=== PATIENT | female | born 1950 | race Caucasian/White ===

== ENCOUNTER → 2017-09-09 13:20 | Outpatient (CLI) | payer MEDICARE, SELFPAY ==
--- NOTE | 2017-09-09 13:23 | BI_ITS ---
MAMMOGRAPHY - UNILATERAL SCREENING: LEFT BREAST REASON FOR EXAM: Female, 67 years old. Routine annual screening examination (unilateral). PERTINENT HISTORY: RT MASTECTOMY 1998 WITH RECONSTRUCTION SX 5 YRS OF TOMOXIFEN DONE 2004 TECHNIQUE: Digital unilateral breast anais (3D mammographic acquisition) in the CC and MLO projections. 2-D mediolateral oblique (MLO) and craniocaudad (CC) views of both breasts were obtained. CAD: Full Field Digital Mammography with Computer Added Detection was performed. COMPARISON: Aug 02 2016 12:18pm , Aug 02 2015 7:09am FINDINGS: Breast Composition: There are scattered areas of fibroglandular density. There is an asymmetric density in the retroareolar region of the left breast for which further evaluation by spot compression views and ultrasound would be recommended. There are no suspicious calcifications. No other significant abnormalities are identified. BI/UNILAT LT SCRN W/CAD IMPRESSION: Further imaging evaluation recommended, as described above. (E) ASSESSMENT CATEGORY: BIRADS Category 0: Incomplete. Need additional imaging evaluation. A letter regarding these results will be sent to the patient by the facility within 30 days. Approximately 10% of breast cancers are not detected by mammography. A normal mammogram should not delay biopsy of a clinically suspicious abnormality. [id number] Electronically Signed: Valarie Norwood MD at 13:09 EDT Tel , Service support ,
== END ==
PROVIDERS: Family Provider Internal Medicine; PCP Internal Medicine; Visit Provider Internal Medicine Medical Oncology
DX: Z12.31 Encounter for screening mammogram for malignant neoplasm of breast (principal); Z85.3 Personal history of malignant neoplasm of breast
CPT/HCPCS: 77061; 77067; G0279

== ENCOUNTER → 2017-09-18 14:47 | Outpatient (CLI) | payer MEDICARE, SELFPAY ==
--- NOTE | 2017-09-18 14:49 | BI_ITS ---
MAMMOGRAPHY - UNILATERAL DIAGNOSTIC: LEFT BREAST REASON FOR EXAM: Female, 67 years old. Asymmetrical retroareolar density. PERTINENT HISTORY: Personal history of breast cancer. Prior right mastectomy. TECHNIQUE: Compression spot views of the left breast in the mediolateral oblique and craniocaudad views were obtained. CAD: Full Field Digital Mammography with Computer Added Detection was performed. COMPARISON: Comparison is made with prior mammogram dated September 09, 2017. FINDINGS: Breast Composition: There are scattered areas of fibroglandular density. There are no dominant masses or suspicious calcifications. There is a 2 mm well-defined nodular density in the retroareolar region of the breasts. Correlation with ultrasound is recommended. No other significant abnormalities are identified. BI/DIAG MAMM W/CAD, UNILAT IMPRESSION: 2 mm well-defined nodule in the retroareolar region of the left breast as described. Correlation with ultrasound is recommended. ASSESSMENT CATEGORY: BIRADS Category 0: Incomplete. Need additional imaging evaluation. A letter regarding these results will be sent to the patient by the facility within 30 days. Approximately 10% of breast cancers are not detected by mammography. A normal mammogram should not delay biopsy of a clinically suspicious abnormality. Electronically Signed: Bartolo Buck MD at 8:10 EDT Tel [phone], Service support ,
--- NOTE | 2017-09-18 14:49 | US_ITS ---
STUDY: ULTRASOUND BREAST - LEFT REASON FOR EXAM: Female, 67 years old. Abnormal screening mammogram. Asymmetrical density in the retroareolar region of the left breast. TECHNIQUE: Axial and longitudinal images of the LEFT breast were performed with a high resolution ultrasound transducer. COMPARISON: Comparison is made with prior mammogram dated September 09, 2017 and September 18, 2017. FINDINGS: LEFT Breast: Sonographic evaluation was performed. There is a 2 mm x 2 mm x 1 mm cyst at 11:00 position breast at 3 cm from nipple. US/Breast Limited Unilateral IMPRESSION: Subcentimeters cyst at the lung o'clock position the breast at 3 cm from the nipple. ASSESSMENT CATEGORY: BIRADS Category 2: Benign. A letter regarding these results will be sent to the patient by the facility within 30 days. Electronically Signed: Bartolo Buck MD at 8:09 EDT Tel [phone], Service support ,
== END ==
PROVIDERS: Family Provider Internal Medicine; PCP Internal Medicine; Visit Provider Internal Medicine Medical Oncology
DX: R92.2 Inconclusive mammogram (principal); Z85.3 Personal history of malignant neoplasm of breast; Z90.11 Acquired absence of right breast and nipple
CPT/HCPCS: 76642; 77065

== ENCOUNTER 2018-01-06 13:00 | Outpatient (RCR) | payer MEDICARE, SELFPAY ==
--- NOTE | 2017-12-19 13:29 | HP.PTEVAL_ITS ---
Patient's Visit Information TERESE BUTLER is a 67 year old F referred to Physical Therapy by Steven Aldridge with a diagnosis of R shoulder OA/L shld impingement/c-spine DDD upper c-spine. Date of Evaluation: 12/19/17 Physical Therapist: Alexandrea Massey - Visit Plan Frequency: 2x /Week Duration: 2 Months Plan: 2X/ week for 4 weeks for B shoulder PROM, AAROM, postural exercises, scapular strengthening, c-spine AROM with HEP and modalities as needed. - Subjective Subjective: Pt reports B shoulder pain with the R being worse. Pt reports that her R shoulder is a nerve impingement feel in multiple areas and sometimes it feels tight. It hurts to lay on the R shoulder and is achy and making it difficult to reach for things (FW and up). Pt has no N&T on the R. They do x- rays on the R shoulder and showed arthritis and the L said nerve impingement. Pt rports that she has some weakness in the R shoulder unless it is because of pain. L shoulder is the same thing but more mild. She has had in the past when the shoulder pain would go back and forth between the two shoulders. She can lay on B shoulders some but now can only sleep on them 1/2 turn. No N&T in the L. Pt has some neck stiffness. She gets no exercise because she just doesnt do them. Pt has had breast CA reconstuction on the R and the latissa is part of the reconstruction on the R. gave her meds and could not take them cause of nausea and increase in BP. She has been seeing MT X 1/ month and she works on mostly Upper neck and shoulders. - Pain R shoulder pain Pain Intensity (Out of 10): 2 L shoulder pain Pain Intensity (Out of 10): 1 - Objective AROM: R shoulder flex 100 degrees, abd 90 degrees, T12 IR, ER 45 degrees. L shoulder flex 136 degrees, abd 113 degrees, T 8 IR, ER 49 degrees. MMT: R shld flex 4-/5 and L 4/5, R shld abd 4-/5 and L 5/5, ER B 4-/5 and IR B 4-/5. c -spine AROM: flex 75%, 50% ext, SB B 25%, Rot B 75%. 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 Posture: rounded shoulders.... - Goals Goal 1:: I HEP Goal Time Frame: 4-6 Weeks Goal 2:: Increase R shoulder to 120 degrees elevation to increase function with no pain Goal Time Frame: 4-6 Weeks Goal 3:: Decrease B shoulder pain to 1/10 with ADL's. Goal Time Frame: 4-6 Weeks Goal 4:: Increase R shoulder MMT to 4/5 all planes Goal Time Frame: 4-6 Weeks Goal 5:: Increase c-spine AROM by 25% each plane (c-spine AROM: flex 75%, 50% ext, SB B 25%, Rot B 75%) Goal Time Frame: 4-6 Weeks - Rehabilitation Potential Rehabilitation Potential: Good - Anticipated Interventions Patient/Client Instruction: Educate patient on: Condition, Plan of Care For the Purpose of:: To decrease pain, To decrease swelling/inflammation, To increase ROM, To improve nutrient delivery to tissue, To increase oxygenation perfusion, To improve muscle performance and motor function, To improve ability to perform ADL's Therapeutic Exercise to Include: Strength training, Postural training, Flexibilty training, Passive ROM, Active ROM, Scapular Strength/Stabilization For the Purpose of:: To decrease pain, To decrease swelling/inflammation, To increase ROM, To improve nutrient delivery to tissue, To improve muscle performance and motor function, To improve ability to perform ADL's, To improve performance and independence with ADL's, To improve health of tissue, To decrease soft tissue restriction, To increase flexibility/ROM IF ES: Yes Thermo therapy (hot pack): Yes Ultrasound (thermal/non thermal): Yes For the Purpose of:: To decrease pain, To decrease swelling/inflammation, To increase ROM, To improve nutrient delivery to tissue, To improve muscle performance and motor function Thank you for the opportunity to evaluate your patient. For Medicare and Medicare HMO plans, please review the plan of care and approve it. It will need to be FAXED BACK to us at [phone] for Medicare purposes. Please let me know if there are questions or concerns regarding this plan of care. Physician Signature: Date:
--- NOTE | 2018-03-06 12:25 | HP.PTDCNRP_ITS ---
HP - Discharge Summary (1) - Patient Information TERESE BUTLER was seen in my office for initial evaluation on 12/19/17. The following Plan of Care was established for this patient: Initial Frequency: 2x /Week Initial Duration: 2 Months - Anticipated Interventions Patient/Client Instruction: Educate patient on: Condition, Plan of Care For the Purpose of:: To decrease pain, To decrease swelling/inflammation, To inc rease ROM, To improve nutrient delivery to tissue, To increase oxygenation perfusion, To improve muscle performance and motor function, To improve ability to perform ADL's Therapeutic Exercise to Include: Strength training, Postural training, Flexibilty training, Passive ROM, Active ROM, Scapular Strength/Stabilization For the Purpose of:: To decrease pain, To decrease swelling/inflammation, To increase ROM, To improve nutrient delivery to tissue, To improve muscle performance and motor function, To improve ability to perform ADL's, To improve performance and independence with ADL's, To improve health of tissue, To decrease soft tissue restriction, To increase flexibility/ROM IF ES: Yes Thermo therapy (hot pack): Yes Ultrasound (thermal/non thermal): Yes For the Purpose of:: To decrease pain, To decrease swelling/inflammation, To increase ROM, To improve nutrient delivery to tissue, To improve muscle performance and motor function This patient was last seen in our office 01/06/18. Pertinent comments regarding their Physical therapy will appear below: [facility] PT as pt now has another order for her shoulder. At this point I will be discontinuing this patient from physical therapy. I would be happy to see this patient again in the future if found appropriate by the physician. Thank you! Alexandrea Massey
== END 2018-01-06 19:00 | disposition home or self-care (01) ==
LOC: PT 13:00
PROVIDERS: Family Provider Internal Medicine; PCP Internal Medicine; Visit Provider Physician Assistant
DX: M19.011 Primary osteoarthritis, right shoulder (principal); M75.42 Impingement syndrome of left shoulder; M50.30 Other cervical disc degeneration, unspecified cervical region
CPT/HCPCS: 97110; 97162

== ENCOUNTER → 2018-01-26 10:50 | Outpatient (CLI) | payer MEDICARE, SELFPAY ==
[2018-01-26 11:36] LABS: Erythrocyte Sedimentation Rate 4 mm/hr (0-30)
[2018-01-26 11:39] LABS: Absolute Lymphocyte Count 2.09 X10^3/ul (0.83-4.51); Absolute Neutrophil Count 3.8 X10^3/uL (2.0-7.7); Basophil# 0.03 X10^3/uL; Basophil% 0.5 % (0-1); Hematocrit 39.5 % (37-47); Hemoglobin 13.6 g/dl (12.0-15.0); Lymphocyte # 2.09 X10^3/ul (4.0); Lymphocyte % 31.8 % (19-41); Mean Corp Hgb Conc 34.4 g/gl (32-36); Mean Corpuscular Hgb 30.9 pg (27.0-32.0); Mean Corpuscular Volume 89.8 fL (81-99); Mean Platelet Vol. 11.8 fl (6.2-12.0); Monocyte# 0.46 X10^3/uL; Neutrophil # 3.78 X10^3/uL (2.7-7.7); Neutrophil % 57.4 % (47-70); POSITIVE COUNT NO; POSITIVE DIFFERENTIAL NO; POSITIVE MORPHOLOGY NO; Platelet Count 185 K/mm3 (150-450); RBC Distribution Width CV 12.7 % (11.6-14.6); RBC Distribution Width SD 41.2 fl (35.1-43.9); White Blood Count 6.6 K/mm3 (4.4-11.0)
[2018-01-26 11:58] LABS: Anion Gap 9 (5-15); BUN 15 mg/dL (7-18); BUN/Creat Ratio 20.6 RATIO (10-20); CRP 4.81 mg/L (0.0-3.0); Calcium,Total 8.7 mg/dL (8.5-10.1); Chloride 107 mmol/L (98-107); Creatinine, Serum 0.73 mg/dL (0.55-1.02); EST Glomerular Filtration Rate 84 mL/min (>60); Est Glom Filt Rate - Afr Amer 102 mL/min (>60); Glucose 97 mg/dL (74-106); Potassium 4.1 mmol/L (3.5-5.1); Rheumatoid Factor < 10.0 IU/mL (<15); Sodium Level 143 mmol/L (136-145); Uric Acid 4.5 mg/dL (2.6-6.0)
[2018-01-27 15:19] LABS: ANTINUCLEAR ANTIBODIES DIRECT Negative (Negative)
== END ==
PROVIDERS: Family Provider Internal Medicine; PCP Internal Medicine; Visit Provider Orthopaedic Surgery
DX: Z01.818 Encounter for other preprocedural examination (principal); M19.011 Primary osteoarthritis, right shoulder
CPT/HCPCS: 36415; 80048; 84550; 85025; 85652; 86038; 86140; 86431

== ENCOUNTER 2018-05-07 15:30 | Outpatient (RCR) | payer MEDICARE, OTHER, SELFPAY ==
--- NOTE | 2018-02-17 15:10 | HP.PTEVAL_ITS ---
Patient's Visit Information TERESE BUTLER is a 67 year old F referred to Physical Therapy by Michael Sanchez with a diagnosis of R rot cuff tear. Date of Evaluation: 02/17/18 Physical Therapist: Del Peck, PT, - Visit Plan Frequency: 2-3x /Week Duration: 6 Weeks Plan: R shoulder strengthening (rot cuff), scap stab ex's, UBE, and HEP - Subjective Subjective: Pt reports she injured her R shoulder about 5 mos ago. Pt reports her R shoulder pain had an insidious onset in nature. Pt reports she does have neck pain. Pt reports the worst her pain becoame after she changed her mattress. Pt reports she also has had her pain start in her R shoulder, then move to her L. Now the pain is abck to the right side. Pt reports she did have an MRI which revealed a tear in her R shoulder rot cuff. Pt reports she had R breast cancer in 1998, and had 19 lymph nodes removed. Pt reports she is choosing to take care of her pain conservatively at this time as she is taking care of her son at this time. R shoulder pain 1/10 at rest , 8/10 at worst (no reson why). Pt notes reaching out and overhead is the toughest motions to perform. Sleep diff secondary to pain - Pain R shoulder Pain Intensity (Out of 10): 1 Pain Intensity Range: 8 - Objective Neuro: B UE sensation is WNL to light touch. B patellar tendon reflex= 2/3. Palpation: Mild pain along distribution of supraspinatus. No obvious deformity. Sig muscle guarding in R Upper trap. ROM: L shoulder flex= 145, abd= 155, ER= 55, IR WNL; R shoulder flex= 120, Abd= 80, ER= 55, IR WNL. MMT: L shoulder is 5/5 throughout. R shoulder is 3/5 and painful with all ranges - Goals Goal 1:: Decrease R shoulder pain x 50% to aid with sleep Goal Time Frame: 4-6 Weeks Goal 2:: Increase R shoulder strength x 1 grade to aid with IADL's Goal 3:: Increase R shoulder ROM to equal L shoulder ROM to aid with ADL's Goal Time Frame: 4-6 Weeks Goal 4:: I with HEP Goal Time Frame: 4-6 Weeks - Rehabilitation Potential Physical Therapy Diagnosis: R shoulder pain, weakness, and limited ROM secondary to R rot cuff Rehabilitation Potential: Good - Anticipated Interventions Patient/Client Instruction: Educate patient on: Condition, Plan of Care For the Purpose of:: To improve self management Therapeutic Exercise to Include: Strength training, Endurance training, Body mechanics, Postural training, Active ROM, Scapular Strength/Stabilization For the Purpose of:: To decrease pain, To increase ROM, To improve muscle performance and motor function Cryotherapy (ice pack, ice massage): Yes Thermo therapy (hot pack): Yes Ultrasound (thermal/non thermal): Yes For the Purpose of:: To decrease pain Thank you for the opportunity to evaluate your patient. For Medicare and Medicare HMO plans, please review the plan of care and approve it. It will need to be FAXED BACK to us at [phone] for Medicare purposes. Please let me know if there are questions or concerns regarding this plan of care. Physician Signature: Date:
--- NOTE | 2018-07-16 18:57 | HP.PT.NRP ---
HP - Discharge Summary (1) - Patient Information TERESE BUTLER was seen in my office for initial evaluation on 02/17/18. The following Plan of Care was established for this patient: Initial Frequency: 2-3x /Week Initial Duration: 6 Weeks - Anticipated Interventions Patient/Client Instruction: Educate patient on: Condition, Plan of Care For the Purpose of:: To improve self management Therapeutic Exercise to Include: Strength training, Endurance training, Body mechanics, Postural training, Active ROM, Scapular Strength/Stabilization For the Purpose of:: To decrease pain, To increase ROM, To improve muscle performance and motor function Cryotherapy (ice pack, ice massage): Yes Thermo therapy (hot pack): Yes Ultrasound (thermal/non thermal): Yes For the Purpose of:: To decrease pain This patient was last seen in our office . Pertinent comments regarding their Physical therapy will appear below: Pt was treated for 5 PT visits for her R shoulder pain through the date of 05/07/18. Pt has not returned since that date, and is therefore discontinued at this time. At this point I will be discontinuing this patient from physical therapy. I would be happy to see this patient again in the future if found appropriate by the physician. Thank you! Del Peck, PT, ATC
== END 2018-05-07 19:00 | disposition home or self-care (01) ==
LOC: PT 15:30
PROVIDERS: Family Provider Internal Medicine; PCP Internal Medicine; Referring Provider Orthopaedic Surgery; Visit Provider Orthopaedic Surgery
DX: S43.421D Sprain of right rotator cuff capsule, subsequent encounter (principal)
CPT/HCPCS: 97110; 97161; 97530

== ENCOUNTER → 2018-06-16 13:54 | Outpatient (CLI) | payer OTHER, SELFPAY ==
[2018-06-03 12:02] VITALS: BMI 34.3
[2018-06-10 10:25] VITALS: BMI 34.3
--- NOTE | 2018-06-16 13:58 | CT_ITS ---
STUDY: CT ABDOMEN AND PELVIS WITH CONTRAST REASON FOR EXAM: Female, 68 years old. Abdominal pain and tenderness. RADIATION DOSAGE (If Supplied By Facility): CTDIvol = ( 11.75 ) mGy, DLP = ( 896.57 ) mGycm TECHNIQUE: Transaxial images were obtained from the dome of the diaphragm to the symphysis pubis without oral contrast. 100 ml of Isovue 300 contrast was administered. Sagittal and coronal images were reconstructed. Individualized dose optimization techniques were used for this CT. COMPARISON: None. FINDINGS: There are surgical clips within the visualized right breast. The visualized lung bases are unremarkable. The visualized portions of the heart are within normal limits. Normal liver. There is non-visualization of the gallbladder, which may be secondary to either contraction or a prior cholecystectomy. Normal spleen. Normal pancreas. Normal bilateral adrenal glands. Normal right kidney. Normal left kidney. Normal visualized stomach. Normal small intestine. Normal colon. The appendix is visualized and appears normal. There is diffuse atherosclerotic calcification of the abdominal aorta, without a demonstrated aneurysm. Normal inferior vena cava. Normal retroperitoneum. Normal urinary bladder. Normal abdominal wall. There are diffuse degenerative changes of the visualized lumbar spine. CT/Abdomen/Pelvis WITH Contrast IMPRESSION: No acute intra-abdominal process. Atherosclerosis. Degenerative changes. Electronically Signed: Fabiana Moreno MD at 16:28 EST Tel , Service support ,
[2018-06-16 14:37] LABS: CREATININE FINGERSTICK 1.2 mg/dL (0.55-1.02)
== END ==
PROVIDERS: Family Provider Internal Medicine; PCP Internal Medicine; Referring Provider Internal Medicine; Visit Provider Internal Medicine
DX: R10.84 Generalized abdominal pain (principal)
CPT/HCPCS: 74177; Q9967

== ENCOUNTER → 2018-06-19 09:57 | Outpatient (CLI) | payer OTHER, SELFPAY ==
[2018-06-19 09:24] VITALS: BMI 34.3
[2018-06-19 10:03] LABS: Bacteria 0 SEEN /hpf (None Seen); Mucous, Urine 0 SEEN /hpf (<or=2+); Red Blood Cells-Urine 0 SEEN /hpf (0-5); Squamous Epithelial Cells - UA 0 SEEN /hpf (5-10)
[2018-06-19 11:39] LABS: Color, Urine Yellow (Yellow); Glucose, Dipstick Normal (Normal); Ketone-Dipstick Negative (Negative); Leukocyte Esterase-Dipstick Negative /ul (Negative); Nitrite-Dipstick Negative (Negative); Occult Blood-Urine Negative /ul (Negative); Protein-Dipstick Negative (Negative); Specific Gravity, Urine 1.015 (1.002-1.030); Urine Bilirubin Dipstick Negative (Negative); Urine Clarity Sl. Cloudy (Clear); Urine Urobilinogen Normal (Normal); Urine pH 6.5 (5.0 - 8.0)
[2018-06-19 11:55] LABS: White Blood Cells 0-5 SEEN /hpf (0-5)
== END ==
PROVIDERS: Family Provider Internal Medicine; PCP Internal Medicine; Referring Provider Surgery; Visit Provider Surgery
DX: R35.0 Frequency of micturition (principal)
CPT/HCPCS: 81001

== ENCOUNTER → 2018-09-04 15:49 | Outpatient (CLI) | payer OTHER, SELFPAY ==
[2018-06-19 09:24] VITALS: BMI 34.3
== END ==
PROVIDERS: Family Provider Internal Medicine; PCP Internal Medicine; Referring Provider Otolaryngology Otolaryngology/Facial Plastic Surgery; Visit Provider Otolaryngology Otolaryngology/Facial Plastic Surgery
DX: J32.9 Chronic sinusitis, unspecified (principal); R09.82 Postnasal drip
CPT/HCPCS: 87070

== ENCOUNTER 2018-09-06 00:24 | Emergency (ER) | payer OTHER, SELFPAY ==
[2018-06-19 09:24] VITALS: BMI 34.3
[2018-09-06 00:25] VITALS: BP 180/77; PULSE 91; RESP 16; TEMP 36.7; O2SAT 98; BMI 34.7
--- NOTE | 2018-09-06 00:39 | RAD_ITS ---
STUDY: X-RAY LEFT FOOT, FIFTH TOE REASON FOR EXAM: Female, 68 years old. Trauma TECHNIQUE: 4 view(s) of the toe were obtained. COMPARISON: None. FINDINGS: Normal visualized metatarsus. Normal metatarsophalangeal (M.T.P) joint. Normal interphalangeal joints. There is a fracture of the fifth proximal phalanx. There is soft tissue swelling of the fifth digit. RAD/Toe(s) Min 2 Views IMPRESSION: Fracture of the fifth proximal phalanx. Electronically Signed: Alejandro Dunn MD at 1:03 EDT , Service support ,
--- NOTE | 2018-09-06 00:40 | ED.VIS.GEN ---
History of Present Illness Chief Complaint: Lower Extremity Injury Informant: Patient Narrative: She stated she injured her left toe just this evening. She kicked the bed frame. She has broke her fifth metatarsal remotely. She is having pain in the fifth toe only. Worse with movement. No home treatment. Current severity is mild to moderate. Worse with walking. Relieved with rest. - Past Medical History (1) Segmental and somatic dysfunction of cervical region Status: Acute (2) Segmental and somatic dysfunction of thoracic region Status: Acute (3) History of right breast cancer Status: Chronic (4) Scoliosis Status: Chronic (5) Shoulder tendinitis Status: Chronic Past Medical History - Allergies and Home Meds Allergies/Adverse Reactions: Allergies adhesive Allergy (Mild, Verified 09/06/18 00:25) Rash celecoxib [From Celebrex] Adverse Reaction (Mild, Verified 09/06/18 00:25) history of ulcer cyclobenzaprine [From Flexeril] Adverse Reaction (Mild, Verified 09/06/18 00:25) mental status change duloxetine [From Cymbalta] Adverse Reaction (Mild, Verified 09/06/18 00:25) mental status change escitalopram [From Lexapro] Adverse Reaction (Mild, Verified 09/06/18 00:25) mental status change lorazepam [From Ativan] Adverse Reaction (Mild, Verified 09/06/18 00:25) mental status change morphine Adverse Reaction (Mild, Verified 09/06/18 00:25) mental status change tramadol Adverse Reaction (Mild, Verified 09/06/18 00:25) mental status change pseudoephedrine HCl [From Sudafed] Adverse Reaction (Verified 09/06/18 00:25) Other Primary Care Physician: Theresa Rodriguez DO [Primary Care Provider] - Prior records reviewed: Yes Past Medical History: - - Reviewed Surgical History: noncontributory Lives: Spouse/ Significant Other Smoking Status: Never smoker Alcohol: None Drugs: None Review of Systems General: Denies: Chills, Fever, Sweats Eyes: Denies: Visual changes - bilaterally, Diplopia ENT: Denies: Rhinorrhea, Sore throat Cardiovascular: Denies: Chest pain, Palpitations Respiratory: Denies: Dyspnea, Cough, Dyspnea on exertion Gastrointestinal: Denies: Abdominal pain, Nausea, Vomiting, Diarrhea, Melena, Hematochezia Genitourinary: Denies: Dysuria, Hematuria, Frequency Musculoskeletal: Reports: Extremity Pain - Pain in the left little toe. Denies: Back pain Skin: Denies: Rash, Wounds Neurological: Denies: Headache, Weakness, Numbness Physical Exam Vital Signs/Narrative: Vital Signs Temp Pulse Resp BP Pulse Ox 09/06/18 00:25 98.1 F 91 16 180/77 H 98 General: Well nourished, Well developed, No Acute Distress Head: Normocephalic, Atraumatic Eyes: Perrl, EOMI ENT: Moist mucous membranes, No rhinorrhea Neck: Supple, Nontender Cardiovascular: Regular rate, Regular rhythm, No murmurs Respiratory: No distress, CTA bilaterally, Chest nontender Abdomen: Soft, Nontender, Nondistended, Normal bowel sounds Back: Nontender, Normal Inspection Extremities: No edema, Tenderness - Tenderness left little toe with mild redness. No contusion. No proximal tenderness. Decreased range of motion of the toes secondary to pain.. Negative for: Nontender Skin: Normal color, No rash Neurological: Alert, Oriented x3, Cranial nerves II-XII grossly intact, Normal Strength, Normal Sensation Psychological: Normal affect, Normal Mood Diagnostic/Tx/Re-eval - Medical Decision Making Patient given Tylenol. X-ray of the toe obtained. Duration of the proximal phalanx fracture of the fifth little toe. Placed in a postop shoe and we deborah tape this toe. She will follow-up with podiatry. She will use Tylenol and ice it. ED Disposition - Plan for ED Patient: Disposition: Home or Assisted Living Diagnosis: Toe fracture, left Instructions: ED Fx Toe Closed Referrals: Michael Gomez DPM [STAFF PHYSICIAN] -
[2018-09-06] MEDS: Acetaminophen 325 MG Tablet 650 MG PO (00:42)
== END 2018-09-06 01:31 | disposition home or self-care (01) ==
PROVIDERS: Emergency Provider Emergency Medicine; Family Provider Internal Medicine; PCP Internal Medicine
DX: S92.912A Unspecified fracture of left toe(s), initial encounter for closed fracture (principal); W22.09XA Striking against other stationary object, initial encounter; Y93.9 Activity, unspecified; Y92.89 Other specified places as the place of occurrence of the external cause; Y99.9 Unspecified external cause status; M41.9 Scoliosis, unspecified; M99.01 Segmental and somatic dysfunction of cervical region; M99.02 Segmental and somatic dysfunction of thoracic region; Z85.3 Personal history of malignant neoplasm of breast
CPT/HCPCS: 73660; 99283

== ENCOUNTER → 2018-09-25 12:56 | Outpatient (CLI) | payer OTHER, SELFPAY ==
[2018-04-16 09:48] VITALS: BMI 34.3
[2018-09-06 00:25] VITALS: BMI 34.7
--- NOTE | 2018-09-25 12:59 | BI_ITS ---
MAMMOGRAPHY - UNILATERAL SCREENING: LEFT BREAST REASON FOR EXAM: Female, 68 years old. Routine annual screening examination (unilateral). PERTINENT HISTORY: Personal history of breast cancer. Prior right mastectomy. Grandmother with breast cancer. TECHNIQUE: Digital unilateral breast sammy (3D mammographic acquisition) in the CC and MLO projections. 2-D mediolateral oblique (MLO) and craniocaudad (CC) views of both breasts were obtained. CAD: Full Field Digital Mammography with Computer Added Detection was performed. COMPARISON: Comparison is made with prior mammogram dated September 18, 2017 and September 09, 2017. FINDINGS: Breast Composition: There are scattered areas of fibroglandular density. There are no dominant masses or suspicious calcifications. Stable 2 mm well-defined nodular density in the retroareolar region of the left breast. This was demonstrated to be a cyst on prior sonogram. No other significant abnormalities are identified. There has been no significant change since the prior study. BI/SCREEN MAMM (CAD) W/SAMMY UNI L IMPRESSION: Stable unilateral screening mammogram. Yearly follow-up mammogram recommended. (A) ASSESSMENT CATEGORY: BIRADS Category 2: Benign. A letter regarding these results will be sent to the patient by the facility within 30 days. Approximately 10% of breast cancers are not detected by mammography. A normal mammogram should not delay biopsy of a clinically suspicious abnormality. [id number] Electronically Signed: Bartolo Buck, at 14:13 EDT , Service support ,
== END ==
PROVIDERS: Family Provider Internal Medicine; PCP Internal Medicine; Referring Provider Internal Medicine Medical Oncology; Visit Provider Internal Medicine Medical Oncology
DX: Z12.31 Encounter for screening mammogram for malignant neoplasm of breast (principal); Z85.3 Personal history of malignant neoplasm of breast; Z80.3 Family history of malignant neoplasm of breast; Z90.11 Acquired absence of right breast and nipple
CPT/HCPCS: 77061; 77067; G0279

== ENCOUNTER → 2018-12-25 14:04 | Outpatient (CLI) | payer OTHER, SELFPAY | PROVIDERS: Family Provider Internal Medicine; PCP Internal Medicine; Referring Provider Podiatrist; Visit Provider Podiatrist | DX: E55.9 Vitamin D deficiency, unspecified (principal) | CPT/HCPCS: 36415; 82306 ==

== ENCOUNTER → 2019-02-09 15:27 | Outpatient (CLI) | payer OTHER, SELFPAY | PROVIDERS: Family Provider Internal Medicine; PCP Internal Medicine; Referring Provider Otolaryngology Otolaryngology/Facial Plastic Surgery; Visit Provider Otolaryngology Otolaryngology/Facial Plastic Surgery | DX: J32.9 Chronic sinusitis, unspecified (principal) | CPT/HCPCS: 87070; 87205 ==

== ENCOUNTER → 2019-02-17 15:39 | Outpatient (CLI) | payer OTHER, SELFPAY ==
--- NOTE | 2019-02-17 15:43 | CT_ITS ---
STUDY: CT MAXILLOFACIAL SINUSES REASON FOR EXAM: Female, 68 years old. Sinusitis, left ear congestion and eustachian tube dysfunction RADIATION DOSAGE (If Supplied By Facility): CTDIvol = ( 29.38 ) mGy, DLP = ( 400.54 ) mGycm TECHNIQUE: The patient was scanned in a multi detector CT scanner. High resolution axial imaging was performed without the administration of intravenous contrast material. Sagittal and coronal images were reconstructed. Individualized dose optimization techniques were used for this CT. COMPARISON: None. FINDINGS: FRONTAL SINUSES: Normal aeration, without mucosal inflammatory disease. ETHMOIDAL SINUSES: Normal aeration, without mucosal inflammatory disease. MAXILLARY SINUSES: Normal aeration, without mucosal inflammatory disease. SPHENOIDAL SINUSES: Normal aeration, without mucosal inflammatory disease. There is opacification of multiple left mastoid air cells. There is patency of the bilateral maxillary infundibuli with normal uncinate processes, ethmoid bullae, and hiatus semilunaris. Normal bilateral middle turbinates. Normal bilateral inferior turbinates. There is nasal septal deviation toward the left. There is patency of the bilateral nasal airways. The visualized osseous structures are normal. The visualized bilateral orbital contents are normal. CT/Sinus/Facial Bone IMPRESSION: The paranasal sinuses appear within normal limits. There is opacification of multiple left mastoid air cells compatible with chronic left mastoiditis. There is nasal septal deviation toward the left. Electronically Signed: Trey Garner MD at 21:24 EDT , Service support ,
== END ==
PROVIDERS: Family Provider Internal Medicine; PCP Internal Medicine; Referring Provider Otolaryngology Otolaryngology/Facial Plastic Surgery; Visit Provider Otolaryngology Otolaryngology/Facial Plastic Surgery
DX: J32.9 Chronic sinusitis, unspecified (principal)
CPT/HCPCS: 70486

== ENCOUNTER → 2019-04-19 15:22 | Outpatient (CLI) | payer OTHER, SELFPAY ==
[2019-04-19 13:57] VITALS: BMI 34.9
--- NOTE | 2019-04-19 15:24 | RAD_ITS ---
STUDY: X-RAY CHEST REASON FOR EXAM: Female, 69 years old. Follow-up, history of breast cancer. TECHNIQUE: PA and lateral views of the chest. COMPARISON: Report of a chest x-ray 09/28/2013. Images are not available. FINDINGS: The lungs are clear and expanded. There is no demonstrated pleural abnormality. Normal size heart. Normal mediastinum and susanne. Normal visualized pulmonary arteries. There is atherosclerotic calcification of the aortic arch with tortuosity. There is demineralization of the osseous structures. There is degenerative osteoarthritis of the bilateral shoulders. There is no demonstrated abnormality of the visualized soft tissue structures of the upper abdomen. Surgical clips projecting over the right breast. RAD/Chest PA and Lateral IMPRESSION: No acute cardiopulmonary disease. Electronically Signed: Janet Orozco MD at 21:26 EST , Service support ,
== END ==
PROVIDERS: Family Provider Internal Medicine; PCP Internal Medicine; Referring Provider Internal Medicine Medical Oncology; Visit Provider Internal Medicine Medical Oncology
DX: Z85.3 Personal history of malignant neoplasm of breast (principal)
CPT/HCPCS: 71046

== ENCOUNTER → 2019-08-25 13:01 | Outpatient (CLI) | payer OTHER, SELFPAY ==
[2019-04-19 13:57] VITALS: BMI 34.9
--- NOTE | 2019-08-25 13:07 | RAD_ITS ---
STUDY: X-RAY CHEST REASON FOR EXAM: Female, 69 years old. Cough, history of breast cancer TECHNIQUE: PA and lateral views of the chest. COMPARISON: 04/19/2019 FINDINGS: There are surgical clips in the anterior and posterior right chest wall . The lungs are clear and expanded. There is no demonstrated pleural abnormality. Normal size heart. Normal mediastinum and susanne. Normal visualized pulmonary arteries. Normal visualized aortic arch and descending thoracic aorta. There is a dextroscoliosis of the thoracic spine. Normal visualized ribs, clavicles, and shoulders. There is no demonstrated abnormality of the visualized soft tissue structures of the upper abdomen. RAD/Chest PA and Lateral IMPRESSION: No acute cardiopulmonary disease. Electronically Signed: Alonso Langston, at 13:41 EDT Tel , Service support ,
[2019-08-25 14:24] LABS: Absolute Lymphocyte Count 1.84 X10^3/uL (0.83-4.51); Absolute Neutrophil Count 8.9 X10^3/uL (2.0-7.7); Basophil# 0.05 X10^3/uL; Basophil% 0.4 % (0-1); Eosinophil# 0.14 X10^3/uL; Eosinophils% 1.2 % (0-5); Hemoglobin 13.7 g/dL (12.0-15.0); Lymphocyte # 1.84 X10^3/ul (4.0); Mean Corp Hgb Conc 33.4 g/dL (32-36); Mean Corpuscular Hgb 29.9 pg (27.0-32.0); Mean Corpuscular Volume 89.5 fL (81-99); Mean Platelet Vol. 11.4 fl (6.2-12.0); Monocyte# 0.57 X10^3/uL; Monocyte% 4.9 % (0-10); NRBC Flagged by Analyzer 0 % (0-5); Neutrophil # 8.88 X10^3/uL (2.7-7.7); Neutrophil % 77.2 % (47-70); Platelet Count 225 K/mm3 (150-450); RBC Distribution Width CV 13.1 % (11.6-14.6); RBC Distribution Width SD 42.5 fl (35.1-43.9); Red Blood Count 4.58 M/mm3 (4.2-5.4); White Blood Count 11.5 K/mm3 (4.4-11.0)
[2019-08-25 14:38] LABS: D-Dimer Quantitative (DVT/PE) 0.32 FEU/ug/m (0.27-0.49)
[2019-08-25 14:59] LABS: Albumin, Serum 3.7 g/dL (3.2-5.0); BUN 11 mg/dL (7-18); BUN/Creat Ratio 14.5 RATIO (10-20); Chloride 109 mmol/L (98-107); Creatinine, Serum 0.76 mg/dL (0.55-1.02); EST Glomerular Filtration Rate 80 mL/min (>60); Est Glom Filt Rate - Afr Amer 96 mL/min (>60); Glucose 88 mg/dL (74-106); Phosphorus 3.3 mg/dL (2.5-4.9); Potassium 3.9 mmol/L (3.5-5.1); Sodium Level 140 mmol/L (136-145); Thyroid Stim Hormone (TSH) 1.39 uIU/mL (0.358-3.74)
== END ==
PROVIDERS: PCP Internal Medicine; Referring Provider Nurse Practitioner; Visit Provider Nurse Practitioner
DX: R05 Cough (principal)
CPT/HCPCS: 36415; 71046; 80069; 84443; 85025; 85379

== ENCOUNTER → 2019-08-31 10:40 | Outpatient (CLI) | payer OTHER, SELFPAY ==
[2019-04-19 13:57] VITALS: BMI 34.9
== END ==
PROVIDERS: PCP Internal Medicine; Visit Provider Nurse Practitioner
DX: R05 Cough (principal)
CPT/HCPCS: 87633; 94799

== ENCOUNTER → 2019-09-01 14:51 | Outpatient (CLI) | payer OTHER, SELFPAY ==
[2019-04-19 13:57] VITALS: BMI 34.9
--- NOTE | 2019-09-01 14:54 | CT_ITS ---
STUDY: CT CHEST WITH CONTRAST REASON FOR EXAM: Female, 69 years old. UNRESOLVED COUGH H/O BREAST Cancer, intermittent SICKNESS W/ COUGH X MONTHS RADIATION DOSAGE (If Supplied By Facility): CTDIvol = ( 14.04 ) mGy, DLP = ( 513.06 ) mGycm TECHNIQUE: Transaxial imaging was performed following intravenous administration of IV 100mL Isovue-300. Multiplanar coronal and sagittal images were reformatted. Individualized dose optimization techniques were used for this CT. COMPARISON: Comparison is made with prior chest radiograph dated August 25, 2019. FINDINGS: Diffuse mild enlargement of the thyroid gland. Small bilateral benign-appearing axillary lymph nodes. Surgical clips are seen in the right axillary region. Minimal increased linear markings at the left lung base suggestive of atelectasis and/or scarring. There is no demonstrated pleural abnormality. There are calcifications of the coronary arteries. There are multiple small lymph nodes within the mediastinum, which are normal in size and morphology most compatible with reactive lymph hyperplasia. Normal hilar regions. Normal enhanced pulmonary arteries. Normal aorta arch and descending thoracic aorta. There are multi-level degenerative changes of the thoracic spine. There is a small anal hernia. CT/Chest WITH Contrast IMPRESSION: No acute abnormality is seen. Electronically Signed: Bartolo Buck, at 15:55 EDT , Service support ,
== END ==
PROVIDERS: PCP Internal Medicine; Referring Provider Nurse Practitioner; Visit Provider Nurse Practitioner
DX: R05 Cough (principal)
CPT/HCPCS: 71260; Q9967

== ENCOUNTER → 2019-09-02 14:16 | Outpatient (CLI) | payer OTHER, SELFPAY ==
[2019-04-19 13:57] VITALS: BMI 34.9
[2019-09-02 15:04] LABS: Absolute Lymphocyte Count 2.92 X10^3/uL (0.83-4.51); Absolute Neutrophil Count 11.1 X10^3/uL (2.0-7.7); Basophil# 0.06 X10^3/uL; Basophil% 0.4 % (0-1); Eosinophil# 0.14 X10^3/uL; Eosinophils% 0.9 % (0-5); Hematocrit 42.1 % (37-47); Hemoglobin 13.6 g/dL (12.0-15.0); Lymphocyte # 2.92 X10^3/ul (4.0); Lymphocyte % 18.8 % (19-41); Mean Corp Hgb Conc 32.3 g/dL (32-36); Mean Corpuscular Hgb 29.6 pg (27.0-32.0); Mean Corpuscular Volume 91.5 fL (81-99); Mean Platelet Vol. 11.3 fl (6.2-12.0); Monocyte# 1.15 X10^3/uL; Monocyte% 7.4 % (0-10); NRBC Flagged by Analyzer 0 % (0-5); Neutrophil # 11.09 X10^3/uL (2.7-7.7); Neutrophil % 71.5 % (47-70); Platelet Count 263 K/mm3 (150-450); RBC Distribution Width CV 12.8 % (11.6-14.6); RBC Distribution Width SD 42.5 fl (35.1-43.9); White Blood Count 15.5 K/mm3 (4.4-11.0)
[2019-09-02 15:35] LABS: BNP,B-Type NATRIURETIC PEPTIDE 37.2 pg/mL (0-100)
[2019-09-02 15:49] LABS: Albumin, Serum 3.6 g/dL (3.2-5.0); BUN 16 mg/dL (7-18); BUN/Creat Ratio 18.6 RATIO (10-20); Chloride 103 mmol/L (98-107); Creatinine, Serum 0.86 mg/dL (0.55-1.02); EST Glomerular Filtration Rate 69 mL/min (>60); Est Glom Filt Rate - Afr Amer 84 mL/min (>60); Glucose 90 mg/dL (74-106); Phosphorus 3.1 mg/dL (2.5-4.9); Potassium 3.2 mmol/L (3.5-5.1); Sodium Level 137 mmol/L (136-145)
== END ==
LOC: LAB.FUTURE 14:19 → LAB 09-03 06:44
PROVIDERS: PCP Internal Medicine; Referring Provider Internal Medicine; Visit Provider Internal Medicine
DX: R05 Cough (principal)
CPT/HCPCS: 36415; 80069; 83880; 85025

== ENCOUNTER → 2019-09-21 09:28 | Outpatient (CLI) | payer OTHER, SELFPAY ==
[2019-04-19 13:57] VITALS: BMI 34.9
--- NOTE | 2019-09-21 09:32 | US_ITS ---
STUDY: THYROID ULTRASOUND REASON FOR EXAM: Female, 69 years old. THYROMEGALY TECHNIQUE: Ultrasound evaluation of the thyroid was performed with real-time and static snyder-scale imaging. COMPARISON: None. FINDINGS: RIGHT LOBE: The right lobe of the thyroid gland is enlarged and measures 5.4 cm x 2.3 cm x 2.4 cm. There is a homogeneous echotexture. There is a hypoechoic complex nodule measuring 1.3 cm x 0.8 cm x 1.2 cm in the upper pole. There is also evidence of a hypoechoic solid nodule measuring 9 mm x 8 mm x 7 mm. There is a isoechoic solid nodule measuring 2.1 cm x 1.4 cm x 0.9 cm in the midpole. Biopsy is recommended. LEFT LOBE: The left lobe of the thyroid gland is enlarged and measures 5.2 cm x 2.1 cm by 2.4 cm. There is a homogeneous echotexture. There are no demonstrated solid, cystic or complex lesions. ISTHMUS: The isthmus measures 4 mm. The regional lymph nodes are normal. US/Thyroid IMPRESSION: Thyroid enlargement. Multiple nodules in the right lobe of the thyroid as described. Biopsy is recommended. Electronically Signed: Bartolo Buck, at 11:11 EDT , Service support ,
== END ==
PROVIDERS: PCP Internal Medicine; Referring Provider Nurse Practitioner; Visit Provider Nurse Practitioner
DX: E04.9 Nontoxic goiter, unspecified (principal)
CPT/HCPCS: 76536

== ENCOUNTER → 2019-09-29 10:45 | Outpatient (CLI) | payer OTHER, SELFPAY ==
[2019-04-19 13:57] VITALS: BMI 34.9
[2019-09-27 14:18] VITALS: BMI 34.9
--- NOTE | 2019-09-29 10:46 | BI_ITS ---
MAMMOGRAPHY - UNILATERAL SCREENING: LEFT BREAST REASON FOR EXAM: Female, 69 years old. Routine annual screening examination (unilateral). PERTINENT HISTORY: LT UNILAT SCREEN - PERSONAL HX @ AGE 48 WITH RT MASTECTOMY WITH RECONSTRUCTION + 5 YRS TOMOXIFEN - LT U/S DONE 09/09/17= CYST - FAM HX OF PAT GRANDMOTHER @ AGE ? TECHNIQUE: Digital unilateral breast sammy (3D mammographic acquisition) in the CC and MLO projections. 2-D mediolateral oblique (MLO) and craniocaudad (CC) views of both breasts were obtained. CAD: Full Field Digital Mammography with Computer Added Detection was performed. COMPARISON: September 25, 2018 and September 18, 2017 FINDINGS: Breast Composition: There are scattered areas of fibroglandular density. There are no dominant masses or suspicious calcifications. No other significant abnormalities are identified. BI/SCREEN MAMM (CAD) W/SAMMY UNI L IMPRESSION: Stable unilateral screening mammogram. Yearly follow-up mammogram recommended. (A) ASSESSMENT CATEGORY: BIRADS Category 2: Benign. A letter regarding these results will be sent to the patient by the facility within 30 days. Approximately 10% of breast cancers are not detected by mammography. A normal mammogram should not delay biopsy of a clinically suspicious abnormality. [id number] Electronically Signed: Valarie Norwood, at 15:59 EDT Tel , Service support ,
== END ==
PROVIDERS: PCP Internal Medicine; Referring Provider Internal Medicine Medical Oncology; Visit Provider Internal Medicine Medical Oncology
DX: Z12.31 Encounter for screening mammogram for malignant neoplasm of breast (principal); Z85.3 Personal history of malignant neoplasm of breast
CPT/HCPCS: 77063; 77067

== ENCOUNTER → 2019-10-01 12:10 | Outpatient (CLI) | payer OTHER, SELFPAY ==
[2019-09-27 14:18] VITALS: BMI 34.9
--- NOTE | 2019-10-01 | ASPIG_PTH ---
PATIENT: TERESE BUTLER LOC: U#:[id number] AGE/SX: 75/F ROOM: RE10/01/[address]: Dr. Trever Douglas MD : [id number] BED: DIS: SPEC #: [id number] RECD: 10/01/19 13:23 STATUS: KIMO REJose #: [id number] SHARLENE: 10/01/19 00:[address]: Trever Douglas DEPT: CYTOLOGY RECD BY: Raúl Hatfield ENTERED: 10/01/19 13:24 SP TYPE: ASP OUT OTHR DR: Dr. Theresa Rodriguez, DO Tissues: Thyroid gland, NOS Procedures: FNA Specimen Adequacy Special Stain Group II Surgery Specimen Level IV Cytology Other HEADER OPERATION: Ultrasound-guided right thyroid biopsy PRE-OP DIAGNOSIS: Right thyroid nodule TISSUE SUBMITTED: Right thyroid DIAGNOSIS CYTOLOGY Fine needle aspiration, right thyroid nodule (smears and cell block): Adequate for evaluation. Consistent with chronic lymphocytic thyroiditis. AM:santiago 10/05/19 COMMENT The specimen is evaluated at the time of biopsy by Dr. Jiménez. Immediate Evaluation = Adequate for evaluation. Follicular cells are present. Case has been reviewed in consultation with Dr. Hayes who concurs with the above diagnosis. IDC:SJ CYTOLOGY STUDY Slides are reviewed. CYTOLOGY GROSS Received is 1 ml of reddish fluid labeled with the patient's name, and designated right thyroid. Eight imprints and six paps are made from the submitted fluid and the rest is added to CytoLyt for cell block preparation. Submitted for cytology study. / AM:santiago 10/01/19 TC:3 CPT: 62573, 35754, 87485, 47217
--- NOTE | 2019-10-01 12:17 | US_ITS ---
CLINICAL HISTORY: Female, 69 years old. Right thyroid lobe nodule PROCEDURE: BIOPSY - THYROIDperformed by Dr. Douglas BIOPSY ULTRASOUND GUIDANCE- RADIATION DOSAGE (If Supplied By Facility): CTDIvol = ( ) mGy, DLP = ( ) mGycm TECHNIQUE: (All elements of maximal sterile barrier technique followed, including US elements as applicable) US/FNA 1st Biopsy w/ US IMPRESSION: 3 samples were taken and recommended by pathology personnel. Electronically Signed: Valarie Norwood, at 15:04 EDT Tel , Service support ,
== END ==
PROVIDERS: PCP Internal Medicine; Referring Provider Surgery; Visit Provider Surgery
DX: E04.2 Nontoxic multinodular goiter (principal)
CPT/HCPCS: 10005; 88161; 88172; 88305; 88313

== ENCOUNTER → 2019-10-29 07:52 | Outpatient (CLI) | payer OTHER, SELFPAY ==
[2019-09-27 14:18] VITALS: BMI 34.9
--- NOTE | 2019-10-29 07:53 | ECHOCS_ITS ---
Reason For Study: Dyspnea/SOB Procedure This was a 2D Doppler, Color Flow transthoracic echocardiogram. The study was technically difficult. Contrast injection was performed. Exam performed in department. Left Ventricle Normal LV size. The estimated ejection fraction is 65 %. No evidence for diastolic dysfunction. No regional wall motion abnormalities noted. Right Ventricle Normal RV size. Normal systolic function. Atria Normal left atrium. Normal right atrium. No doppler evidence for ASD. Mitral Valve There is no stenosis. No mitral valve insufficiency. Tricuspid Valve There is no tricuspid stenosis. No tricuspid valve insufficiency. Unable to estimate RV systolic pressure due to insufficient tricuspid regurgitant envelope. Aortic Valve Trisinus/trileaflet aortic valve. There is no aortic stenosis. No aortic valve insufficiency. Pulmonic Valve There is no pulmonic valvular stenosis. No pulmonic valve insufficiency. Great Vessels Normal aortic root. Pericardium/Pleural No pericardial effusion. Medication 22 gauge I.V. with prn adaptor inserted into left arm. Diluted definity 2ml given slow IV push to enhance endocardial definition. MMode/2D Measurements & Calculations LVIDd: 3.6 cm IVSd: 1.1 cm LA dimension: 3.5 cm LVIDs: 2.3 cm LVPWd: 1.2 cm FS: 35.9 % LAV(MOD-bp): 47.4 ml LA A4 area: 15.9 cm2 RA A4 area: 12.7 cm2 LAV(MOD-bp) Indexed: 25.1 ml/m2 LAV(MOD-sp2): 47.4 ml LAV(MOD-sp4): 44.9 ml Time Measurements MV dec time: 0.23 sec Doppler Measurements & Calculations MV E max shine: 74.9 cm/sec Lat Peak E' Shine: 7.0 cm/sec Med Peak E' Shine: 11.9 cm/sec MV A max shine: 106.5 cm/sec E/E' lat: 10.6 E/E' med: 6.3 MV E/A: 0.70 MV V2 max: 106.9 cm/sec MV P1/2t max shine: 89.6 cm/sec Ao V2 max: 144.5 cm/sec MV max P.6 mmHg MV P1/2t: 78.1 msec Ao max P.3 mmHg MV V2 mean: 59.8 cm/sec MV dec slope: 335.7 cm/sec2 MV mean P.7 mmHg MV V2 VTI: 27.0 cm MVA(P1/2t): 2.8 cm2 LV V1 max: 126.9 cm/sec PA V2 max: 122.3 cm/sec LV V1 max P.4 mmHg Interpretation Summary The estimated ejection fraction is 65 %. No evidence for diastolic dysfunction. The study was technically difficult. Contrast injection was performed. Ordering Physician: Piotr Luna Referring Physician: Theresa Rodriguez M.D. Performed By: Alfa Buckley RCS
== END ==
PROVIDERS: PCP Internal Medicine; Referring Provider Internal Medicine Critical Care Medicine; Visit Provider Internal Medicine Critical Care Medicine
DX: R06.00 Dyspnea, unspecified (principal); R06.02 Shortness of breath
CPT/HCPCS: 93306; Q9957; A4216; C8929

== ENCOUNTER → 2019-11-15 12:19 | Outpatient (CLI) | payer OTHER, SELFPAY ==
[2019-09-27 14:18] VITALS: BMI 34.9
--- NOTE | 2019-11-15 12:51 | CT_ITS ---
STUDY: CT ABDOMEN AND PELVIS WITH CONTRAST REASON FOR EXAM: Female, 69 years old. ABD PAIN X FEW MONTHS. Hx of rt breast cancer with mastectomy and reconstruction, cholecystectomy, umbilical hernia repair, TRINIDAD/BSO RADIATION DOSAGE (If Supplied By Facility): CTDIvol = ( 15.72 ) mGy, DLP = ( 1022.17 ) mGycm TECHNIQUE: Transaxial images were obtained from the dome of the diaphragm to the symphysis pubis with oral contrast. Oral and amp; IV Gastrografin and amp; 100mL Isovue-300 was administered. Sagittal and coronal images were reconstructed. Individualized dose optimization techniques were used for this CT. COMPARISON: Comparison is made with prior examination dated June 16, 2018. FINDINGS: Minimal linear scarring at the left lung base. The visualized portions of the heart are within normal limits. Normal liver. The patient is status post cholecystectomy. Normal spleen. Normal pancreas. Normal bilateral adrenal glands. Normal right kidney. Normal left kidney. There is a small hiatal hernia. Normal small intestine. There are scattered colonic diverticula consistent with diverticulosis. A moderate amount of fecal material is seen in the right hemicolon. The appendix is visualized and appears normal. There is diffuse atherosclerotic calcification of the abdominal aorta and the major visceral branches, without a demonstrated aneurysm. Normal inferior vena cava. There is borderline retroperitoneal lymphadenopathy with enlarged nodes no greater than 10mm in the short axis diameter. Normal urinary bladder. There is absence of the uterus consistent with a prior hysterectomy. Normal abdominal wall. Normal osseous structures. CT/Abdomen/Pelvis WITH Contrast IMPRESSION: Status post cholecystectomy and hysterectomy. Moderate amount of fecal material is seen in the right hemicolon. Electronically Signed: Bartolo Buck, at 15:40 EDT , Service support ,
[2019-11-15 15:00] LABS: CREATININE FINGERSTICK 0.7 mg/dL (0.55-1.02); EGFR FINGERSTICK > 60.0000 mL/min (>60)
[2019-11-15 15:46] LABS: Absolute Lymphocyte Count 1.94 X10^3/uL (0.83-4.51); Absolute Neutrophil Count 4.5 X10^3/uL (2.0-7.7); Basophil# 0.03 X10^3/uL; Basophil% 0.4 % (0-1); Eosinophil# 0.09 X10^3/uL; Eosinophils% 1.3 % (0-5); Hematocrit 39.8 % (37-47); Hemoglobin 13.5 g/dL (12.0-15.0); Lymphocyte # 1.94 X10^3/ul (4.0); Lymphocyte % 27.6 % (19-41); Mean Corp Hgb Conc 33.9 g/dL (32-36); Mean Corpuscular Hgb 30.5 pg (27.0-32.0); Mean Corpuscular Volume 89.8 fL (81-99); Monocyte# 0.51 X10^3/uL; Monocyte% 7.3 % (0-10); NRBC Flagged by Analyzer 0 % (0-5); Neutrophil # 4.45 X10^3/uL (2.7-7.7); Neutrophil % 63.3 % (47-70); Platelet Count 195 K/mm3 (150-450); RBC Distribution Width CV 12.8 % (11.6-14.6); RBC Distribution Width SD 41.6 fl (35.1-43.9); Red Blood Count 4.43 M/mm3 (4.2-5.4)
[2019-11-15 16:14] LABS: Erythrocyte Sedimentation Rate 23 mm/hr (0-30)
[2019-11-15 17:32] LABS: ALB/GLOB Ratio 0.9 RATIO (0.9-2.4); AST(SGOT) 17 U/L (15-37); Alanine Aminotransfer ALT/SGPT 27 U/L (13-56); Albumin, Serum 3.6 g/dL (3.2-5.0); Alkaline Phosphatase 103 U/L (45-117); Anion Gap 7 (5-15); BUN 9 mg/dL (7-18); BUN/Creat Ratio 12.8 RATIO (10-20); CRP 7.19 mg/L (0.0-3.0); Calcium,Total 8.5 mg/dL (8.5-10.1); Chloride 108 mmol/L (98-107); Cholesterol 131 mg/dL (200); EST Glomerular Filtration Rate 87 mL/min (>60); Est Glom Filt Rate - Afr Amer 105 mL/min (>60); Globulin 3.8 g/dL (2.2-4.2); Glucose 85 mg/dL (74-106); High Density Lipoprotein 48 mg/dL; Potassium 3.9 mmol/L (3.5-5.1); Protein, Total 7.4 g/dL (6.4-8.2); Sodium Level 137 mmol/L (136-145); Triglycerides 150 mg/dL; Very Low Density Lipoprotein 30 mg/dL (5-40)
== END ==
PROVIDERS: PCP Internal Medicine; Referring Provider Internal Medicine; Visit Provider Internal Medicine
DX: E78.00 Pure hypercholesterolemia, unspecified (principal); R10.9 Unspecified abdominal pain
CPT/HCPCS: 36415; 74177; 80053; 80061; 85025; 85652; 86140; Q9967

== ENCOUNTER → 2019-12-29 09:31 | Outpatient (CLI) | payer OTHER, SELFPAY ==
[2019-09-27 14:18] VITALS: BMI 34.9
[2019-11-26 13:31] VITALS: BMI 34.9
--- NOTE | 2019-12-30 06:48 | PFTCOMP ---
COMPLETE PULMONARY FUNCTION TEST INTERPRETATION Brief HPI: Patient is a 69 year old female, currently under the care of myself, who presents to [facility] for complete pulmonary function tests secondary to diagnosis of COPD. Respiratory therapist reports good effort and reproducible results. Interpretation: Forced expiration spirometry shows no large airways obstructive ventilatory defect with an FEV1 of 94% predicted. No bronchodilator response was attempted secondary to patient's refusal of albuterol. Spirograms are of good quality and plateau normally. The respiratory flow volume loop shows a normal pattern. Lung volumes by body plethysmography show a normal total lung capacity at 4.65 L, 101% predicted. All other lung volumes are within normal limits. Diffusion capacity by carbon monoxide is normal at 81% predicted. The airway resistance is normal. No previous pulmonary function tests were available for review. Impression: Normal pulmonary function testing. No bronchodilator tested, but these findings are not consistent with the diagnosis of COPD.
== END ==
PROVIDERS: PCP Internal Medicine; Referring Provider Internal Medicine Critical Care Medicine; Visit Provider Internal Medicine Critical Care Medicine
DX: R06.00 Dyspnea, unspecified (principal)
CPT/HCPCS: 94010; 94726; 94729

== ENCOUNTER → 2020-01-07 15:46 | Outpatient (CLI) | payer OTHER, SELFPAY ==
[2019-11-26 13:31] VITALS: BMI 34.9
[2020-01-07 18:07] LABS: T4 Free Direct 1.71 ng/dL (0.76-1.46)
== END ==
PROVIDERS: PCP Internal Medicine; Referring Provider Internal Medicine Endocrinology, Diabetes & Metabolism; Visit Provider Internal Medicine Endocrinology, Diabetes & Metabolism
DX: E06.3 Autoimmune thyroiditis (principal)
CPT/HCPCS: 36415; 84439; 84443

== ENCOUNTER → 2020-02-04 07:47 | Outpatient (CLI) | payer OTHER, SELFPAY ==
[2020-01-19 08:51] VITALS: BMI 34.9
--- NOTE | 2020-02-04 08:00 | RAD_ITS ---
STUDY: X-RAY - ESOPHAGUS (BARIUM SWALLOW) WITH FLUOROSCOPY REASON FOR EXAM: Female, 69 years old. DYSPHAGIA, ACID REFLUX, COUGH, HX HIATAL HERNIA -- 15 FLUORO IMAGES, 23 FLUORO SEC, 10.22mGy TECHNIQUE: 15 view(s) of the esophagus were obtained following swallowing of barium. FLUOROSCOPY TIME (if supplied): (0:23) minutes/seconds COMPARISON: None. FINDINGS: There is no demonstrated esophageal foreign body. There is no demonstrated stricture or mucosal abnormality. There is a small hiatal hernia of the fundus of the stomach. There is evidence of gastroesophageal reflux. The patient ingested a 12 mm tablet of barium without any difficulty. There is atherosclerotic tortuosity of the aortic arch and descending thoracic aorta. Normal visualized pulmonary parenchyma. There are degenerative changes of the visualized thoracic spine. RAD/Esophagus Dual Contrast IMPRESSION: Small sliding hiatal hernia with gastroesophageal reflux. Electronically Signed: Bartolo Buck, at 8:34 EDT , Service support ,
== END ==
PROVIDERS: PCP Internal Medicine; Referring Provider Otolaryngology; Visit Provider Otolaryngology
DX: R13.10 Dysphagia, unspecified (principal)
CPT/HCPCS: 74221

== ENCOUNTER 2020-03-13 10:00 | Outpatient (RCR) | payer OTHER, SELFPAY ==
[2019-11-26 13:31] VITALS: BMI 34.9
[2020-01-19 08:51] VITALS: BMI 34.9
--- NOTE | 2020-01-25 14:01 | HP.PTEVAL_ITS ---
Patient's Visit Information TERESE BUTLER is a 69 year old F referred to Physical Therapy by Dr. Michael Sanchez DO with a diagnosis of LUMBAR DDD. Date of Evaluation: 01/25/20 Physical Therapist: Nevin Ewing PT, Cert MDT - Visit Plan Frequency: 2-3x /Week Duration: 4-6 Weeks Plan: AQUATIC THERAPY WAS RECOMMENDED AND PATIENT REFUSED. PATIENT REPORTS EVERYTHING HURTS AND SHE ISN'T USE TO DOING ANY EXERCISE AT ALL. STATES SHE WANTS INSTRUCTION AND THEN WANTS TO CONTINUE AT HOME. STATES SHE DOES NOT WANT TO EXERCISE IN THE GYM BECAUSE SHE WANTS TO BE AROUND FEW PEOPLE POSSIBLE. POSTURE CORRECTION/STRENGTHENING, INSTRUCTION IN APPROPRIATE BODY MECHANICS AND ACTIVITY MODIFICATIONS. DLS STARTING WITH A NEUTRAL SPINE PROGRESSING ROM TOLERATED. JENNIFER LE ROM, STRETCHING AND STRENGTHENING. HEP INSTRUCTION. - Subjective Work/Leisure: RETIRED. Present symptoms: INTERMITTENT LOW BACK PAIN. LEFT LE SHARP PAIN FROM THE WAIST DOWN TO THE FOOT. PATIENT REPORTS SHE HAS A BROKEN SMALL TOE AND TOE NEXT TO IT HAS ISSUES. INTERMITTENT SWELLING OF FEET. JENNIFER KNEE PAIN LEFT > RIGHT. *MAIN REASON PATIENT IS HERE IS THIS PAIN DOWN HER LEFT LEG THAT STARTED ABOUT 3 MONTHS AGO. INTERMITTENT LEFT GROIN PAIN. Present since: ABOUT 3 MONTHS AGO. Pain Scale: WORST 8/10, LEAST 3/10. Currently: 3/10. Commenced as a result of: NO APPARENT REASON. Symptoms at onset: LEFT KNEE PAIN. Worse: STANDING, RISING FROM SITTING, SOMETIMES JUST SITTING, GETTING IN AND OUT OF THE CAR, SITTING DOWN IN A CHAIR, TRYING TO GET COMFORTABLE LYING DOWN, TRYING TO DO STRETCHES WITH THE LEFT LEG. Better: REPOSITIONING. Disturbed sleep: NO. Previous history/Previous treatment: ABOUT 6 YEARS AGO LEFT FOOT AND ANKLE PROBLEMS SIMILAR TO WHAT SHE IS FEELING NOW - RESLOVED. PATIENT REPORTS SHE WAS DIAGNOSED WITH SCOLIOSIS A CHILD. A FEW DIFFERENT CHIROPRACTORS OVER THE YEARS SINCE IN HER 40'S OR 50'S. LAST VISIT WAS LAST WEEK WITH DR. FAM. STATES IT DID NOT HELP MUCH BUT FELT LIKE MAYBE SHE WASN'T DISJOINTED WALKING OUT LAST TIME. MASSAGE THERAPY. Treatment this episode: MUSCLE RELAXERS, TYLONOL, RORY'T WITH ORTHO - DR. SNACHEZ. CHIROPRACTOR. Coughing/sneezing/straining: NEGATIVE. Gait: PATIENT REPORTS SHE FEELS MORE UNCOORDINATED WALKING. STATES SHE DOESN'T FEEL LIKE SHE CAN WALK FREELY. DENIES LIMPING ON LLE. WALKING SLOWER THAN NORMAL. I FEEL BETTER WAKLING AND STANDING THAN I DO SITTING OR LYING DOWN. Difficulty initiating urinatin: NO. Accidents: UNREMARKABLE. Unexplained weight loss: NO. Imaging: RECENT X-RAYS ORDERED BY DR. SANCHEZ AND PATIENT IS NOT SURE WHAT THE X-RAYS WERE OF. STATES DR. SANCHEZ TOLD HER HE DOES NOT THINK HER PAIN IS COMING FROM HER HIPS HE THINKS IT IS COMING FROM HER BACK. PMH: HIGH CHOLESTEROL, THYROID PROBLEMS, FIBROMYALGIA, H/O SKIN AND BREAST CA, CERVICAL HNP, OSTEOPENIA, OA, H/O OF A LOT OF FOOT PROBLEMS L.R, ACID REFLUX, MITRAL VALVE PROLAPSE, ULCERS, INTERMITTENT HTN, KIDNEY STONES, RIGHT ROTATOR CUFF TEAR UN-REPAIRED, CALCIFIC TENDONITIS, TMJ, PANIC ATTACTS, LYPHEDEMA RIGHT ARM, LEFT TOE FX THAT WON'T HEAL. OTHER: PATIENT DENIES ANY RECENT FALLS. - Objective Sitting/Standing Posture: POOR. FH. RS'S. DECREASED LORDOSIS. Active Correction of posture: WORSE. Other Observations: INDEP GAIT AND TRANSFERS. TRANSFERS ARE GUARDED. DIFFICTULTY RISING FROM SITTING AND INITIATING GAIT. DECREASED CADANCE. NO AD'S. Motor deficit: JENNIFER LE'S GROSSLY 4/5 WITH MMT'ING. Sensory deficit: JENNIFER LE LIGHT TOUCH SENSATION APPEARS INTACT AND SYMMETRICAL INCLUDING FEET. ROM deficit: TIGHT JENNIFER HS'S AND GASTROC SOLEUS COMPLEX'S. Reflexes: 2/3 JENNIFER LE'S. Dural Signs: NEGATIVE JENNIFER LE'S. Lumbar mvmt loss: flex - MIN. ext - MOD. R SG - NILSON. L SG - NILSON. INCREASED C/O LOW BACK PAIN INTO FLEXION AND EXTENSION. INCREASED LLE PAIN WITH LUMBAR EXTENSION ROM TESTING. Core strength: POOR. Palpation: NO ACUTE TENDERNESS WITH PALPATION OF THE LOWER THORACIC OR LUMBAR SPINE REGIONS. INCREASED MUSCLE TONE JENNIFER PA RASPINALS. TREATMENT: NEUROMUSCULAR REEDUCATION - RETRAINING OF MVMT AND POSTURE FOR SITTING, LYING AND STANDING ACTIVITIES. - Goals Goal 1:: DECREASE C/O LOW BACK AND LLE PAIN. Goal Time Frame: 4-6 Weeks Goal 2:: IMPROVE PERSONAL CARE, LIFTING, WALKING, SITTING, STANDING, TRAVEL AND HOMEMAKING FUNCTION. Goal Time Frame: 4-6 Weeks Goal 3:: INSTRUCT IN PROPHYLAXIS Goal Time Frame: 4-6 Weeks - Anticipated Interventions Patient/Client Instruction: Educate patient on: Condition, Plan of Care, Risk Factors, Benefits of Fitness Program For the Purpose of:: To improve self management Therapeutic Exercise to Include: Strength training, Body mechanics, Postural training, Neuromotor development, In an aquatic setting, Dynamic Lumbar Stabilization For the Purpose of:: To decrease pain, To increase ROM, To improve muscle performance and motor function, To increase tolerance to activity/condition/position, To improve ability of physical actions for home/community/work/leisure Thank you for the opportunity to evaluate your patient. For Medicare and Medicare HMO plans, please review the plan of care and approve it. It will need to be FAXED BACK to us at [phone] for Medicare purposes. For Medicare only, by signing this I certify the plan of care. Please let me know if there are questions or concerns regarding this plan of care. Physician Signature: Date:
--- NOTE | 2020-02-18 16:50 | HP.PTEVAL ---
Patient's Visit Information TERESE BUTLER is a 69 year old F referred to Physical Therapy by Dr. Michael Sanchez DO with a diagnosis of LUMBAR DDD. Date of Evaluation: 01/25/20 Physical Therapist: Nevin Ewing PT, Cert MDT - Visit Plan Frequency: 2-3x /Week Duration: 4-6 Weeks Plan: CONT PT 3X'S A WK X 10 VISITS. PATIENT AGREEABLE. AQUATIC THERAPY WAS RECOMMENDED AND PATIENT REFUSED. PATIENT REPORTS EVERYTHING HURTS AND SHE ISN'T USE TO DOING ANY EXERCISE AT ALL. STATES SHE WANTS INSTRUCTION AND THEN WANTS TO CONTINUE AT HOME. STATES SHE DOES NOT WANT TO EXERCISE IN THE GYM BECAUSE SHE WANTS TO BE AROUND FEW PEOPLE POSSIBLE. POSTURE CORRECTION/STRENGTHENING, INSTRUCTION IN APPROPRIATE BODY MECHANICS AND ACTIVITY MODIFICATIONS. DLS STARTING WITH A NEUTRAL SPINE PROGRESSING ROM TOLERATED. JENNIFER LE ROM, STRETCHING AND STRENGTHENING. HEP INSTRUCTION. - Subjective Work/Leisure: RETIRED. Present symptoms: INTERMITTENT LOW BACK PAIN. LEFT LE SHARP PAIN FROM THE WAIST DOWN TO THE FOOT. PATIENT REPORTS SHE HAS A BROKEN SMALL TOE AND TOE NEXT TO IT HAS ISSUES. INTERMITTENT SWELLING OF FEET. JENNIFER KNEE PAIN LEFT > RIGHT. *MAIN REASON PATIENT IS HERE IS THIS PAIN DOWN HER LEFT LEG THAT STARTED ABOUT 3 MONTHS AGO. INTERMITTENT LEFT GROIN PAIN. Present since: ABOUT 3 MONTHS AGO. Pain Scale: WORST 8/10, LEAST 3/10. Currently: 3/10. Commenced as a result of: NO APPARENT REASON. Symptoms at onset: LEFT KNEE PAIN. Worse: STANDING, RISING FROM SITTING, SOMETIMES JUST SITTING, GETTING IN AND OUT OF THE CAR, SITTING DOWN IN A CHAIR, TRYING TO GET COMFORTABLE LYING DOWN, TRYING TO DO STRETCHES WITH THE LEFT LEG. Better: REPOSITIONING. Disturbed sleep: NO. Previous history/Previous treatment: ABOUT 6 YEARS AGO LEFT FOOT AND ANKLE PROBLEMS SIMILAR TO WHAT SHE IS FEELING NOW - RESLOVED. PATIENT REPORTS SHE WAS DIAGNOSED WITH SCOLIOSIS A CHILD. A FEW DIFFERENT CHIROPRACTORS OVER THE YEARS SINCE IN HER 40'S OR 50'S. LAST VISIT WAS LAST WEEK WITH DR. FAM. STATES IT DID NOT HELP MUCH BUT FELT LIKE MAYBE SHE WASN'T DISJOINTED WALKING OUT LAST TIME. MASSAGE THERAPY. Treatment this episode: MUSCLE RELAXERS, TYLONOL, RORY'T WITH ORTHO - DR. SANCHEZ. CHIROPRACTOR. Coughing/sneezing/straining: NEGATIVE. Gait: PATIENT REPORTS SHE FEELS MORE UNCOORDINATED WALKING. STATES SHE DOESN'T FEEL LIKE SHE CAN WALK FREELY. DENIES LIMPING ON LLE. WALKING SLOWER THAN NORMAL. I FEEL BETTER WAKLING AND STANDING THAN I DO SITTING OR LYING DOWN. Difficulty initiating urinatin: NO. Accidents: UNREMARKABLE. Unexplained weight loss: NO. Imaging: RECENT X-RAYS ORDERED BY DR. SANCHEZ AND PATIENT IS NOT SURE WHAT THE X-RAYS WERE OF. STATES DR. SANCHEZ TOLD HER HE DOES NOT THINK HER PAIN IS COMING FROM HER HIPS HE THINKS IT IS COMING FROM HER BACK. PMH: HIGH CHOLESTEROL, THYROID PROBLEMS, FIBROMYALGIA, H/O SKIN AND BREAST CA, CERVICAL HNP, OSTEOPENIA, OA, H/O OF A LOT OF FOOT PROBLEMS L.R, ACID REFLUX, MITRAL VALVE PROLAPSE, ULCERS, INTERMITTENT HTN, KIDNEY STONES, RIGHT ROTATOR CUFF TEAR UN-REPAIRED, CALCIFIC TENDONITIS, TMJ, PANIC ATTACTS, LYPHEDEMA RIGHT ARM, LEFT TOE FX THAT WON'T HEAL. OTHER: PATIENT DENIES ANY RECENT FALLS. - Pain Back pain Pain Intensity (Out of 10): Unrated Left hip/leg Pain Intensity (Out of 10): Unrated Comment: but w/ certain mvmts 8/10 pain. right knee Pain Intensity (Out of 10): Unrated - Objective Sitting/Standing Posture: POOR. FH. RS'S. DECREASED LORDOSIS. Active Correction of posture: WORSE. Other Observations: INDEP GAIT AND TRANSFERS. TRANSFERS ARE GUARDED. DIFFICTULTY RISING FROM SITTING AND INITIATING GAIT. DECREASED CADANCE. NO AD'S. Motor deficit: JENNIFER LE'S GROSSLY 4/5 WITH MMT'ING. Sensory deficit: JENNIFER LE LIGHT TOUCH SENSATION APPEARS INTACT AND SYMMETRICAL INCLUDING FEET. ROM deficit: TIGHT JENNIFER HS'S AND GASTROC SOLEUS COMPLEX'S. Reflexes: 2/3 JENNIFER LE'S. Dural Signs: NEGATIVE JENNIFER LE'S. Lumbar mvmt loss: flex - MIN. ext - MOD. R SG - NILSON. L SG - NILSON. INCREASED C/O LOW BACK PAIN INTO FLEXION AND EXTENSION. INCREASED LLE PAIN WITH LUMBAR EXTENSION ROM TESTING. Core strength: POOR. Palpation: NO ACUTE TENDERNESS WITH PALPATION OF THE LOWER THORACIC OR LUMBAR SPINE REGIONS. INCREASED MUSCLE TONE JENNIFER PARASPINALS. TREATMENT: NEUROMUSCULAR REEDUCATION - RETRAINING OF MVMT AND POSTURE FOR SITTING, LYING AND STANDING ACTIVITIES. - Goals Goal 1:: DECREASE C/O LOW BACK AND LLE PAIN. Goal Time Frame: 4-6 Weeks Goal 2:: IMPROVE PERSONAL CARE, LIFTING, WALKING, SITTING, STANDING, TRAVEL AND HOMEMAKING FUNCTION. Goal Time Frame: 4-6 Weeks Goal 3:: INSTRUCT IN PROPHYLAXIS Goal Time Frame: 4-6 Weeks - Anticipated Interventions Patient/Client Instruction: Educate patient on: Condition, Plan of Care, Risk Factors, Benefits of Fitness Program For the Purpose of:: To improve self management Therapeutic Exercise to Include: Strength training, Body mechanics, Postural training, Neuromotor development, In an aquatic setting, Dynamic Lumbar Stabilization For the Purpose of:: To decrease pain, To increase ROM, To improve muscle performance and motor function, To increase tolerance to activity/condition/position, To improve ability of physical actions for home/community/work/leisure Thank you for the opportunity to evaluate your patient. For Medicare and Medicare HMO plans, please review the plan of care and approve it. It will need to be FAXED BACK to us at [phone] for Medicare purposes. For Medicare only, by signing this I certify the plan of care. Please let me know if there are questions or concerns regarding this plan of care. Physician Signature: Date:
--- NOTE | 2020-03-13 12:42 | HP.PTREVAL ---
Dr. Michael Sanchez, DO, It has been my pleasure to treat TERESE BUTLER over the last 16 visits for LUMBAR DDD. Please see the progress note below for an update on the physical therapy plan of care! Subjective: MRI PENDING 03/22/20. PATIENT REPORTS SHE CAN TELL THAT DOING THE EX'S IS A GOOD THING. STATES SHE CAN MOVE BETTER WHEN SHE DOES THE EX'S BUT HER PAIN LEVEL IS STILL THE SAME. SHE IS HAVING PAIN MORE OFTEN THOUGH. TWISTING INCREASES HER LEFT CALF PAIN. STATES SHE BASICALLY DOESN'T HAVE LOW BACK PAIN. STILL SOME JENNIFER KNEE PAIN. CHIEF COMPLAINT IS LEFT CALF PAIN. REPORTS STABBING PAIN AND LEFT LEG BUCKLING WITH WALKING FRIDAY. Objective/Function: PATIENT WAS SEEN TODAY FOR RE-ASSESSMENT OF PROGRESS TOWARD THE SET PT GOALS AND THE NEED FOR FURTHER PHYSICAL THERAPY VS READINESS FOR DISCHARGE. UPON EXAM TODAY: Motor deficit: JENNIFER LE'S GROSSLY 5/5 WITH MMT'ING EXCEPT HIPS 4/5. LEFT KNEE FLEXION IS STRONG BUT PATIENT C/O LEFT PROXIMAL CALF PAIN WITH TESTING. Sensory deficit: JENNIFER LE LIGHT TOUCH SENSATION APPEARS INTACT AND SYMMETRICAL INCLUDING FEET. ROM deficit: TIGHT JENNIFER HS'S AND GASTROC SOLEUS COMPLEX'S. Dural Signs: NEGATIVE JENNIFER LE'S. Lumbar mvmt loss: flex - NIL. ext - MIN. R SG - MOD. L SG - MOD. PATIENT DENIES INCREASED PAIN WITH LUMBAR ROM TESTING ALL PLANES. Core strength: POOR. Palpation: NO ACUTE TENDERNESS WITH PALPATION OF THE LOWER THORACIC OR LUMBAR SPINE REGIONS. INCREASED MUSCLE TONE JENNIFER PARASPINALS. LEFT CALF IS NOT TENDER WITH PALPATION. OTHER: NEGATIVE HOMANS SIGN LEFT. Plan Plan: HOLD CHART PENDING MRI RESULTS. Goals Goal 1:: DECREASE C/O LOW BACK AND LLE PAIN. Goal Time Frame: 4-6 Weeks Goal Progress: Not Progressing Goal 2:: IMPROVE PERSONAL CARE, LIFTING, WALKING, SITTING, STANDING, TRAVEL AND HOMEMAKING FUNCTION. Goal Time Frame: 4-6 Weeks Goal Progress: Not Progressing Goal 3:: INSTRUCT IN PROPHYLAXIS Goal Time Frame: 4-6 Weeks Goal Progress: Not Progressing Anticipated Interventions Patient/Client Instruction: Educate patient on: Condition, Plan of Care, Risk Factors, Benefits of Fitness Program For the Purpose of:: To improve self management Therapeutic Exercise to Include: Strength training, Body mechanics, Postural training, Neuromotor development, In an aquatic setting, Dynamic Lumbar Stabilization For the Purpose of:: To decrease pain, To increase ROM, To improve muscle performance and motor function, To increase tolerance to activity/condition/position, To improve ability of physical actions for home/community/work/leisure Please do not hesitate to contact me at [phone] by phone or if you have questions or concerns regarding this new plan of care! Sincerely, Nevin Ewing, PT, Cert MDT
--- NOTE | 2020-04-11 12:05 | HP.PT.NRP ---
TERESE BUTLER was seen in my office for initial evaluation on 01/25/20. The following Plan of Care was established for this patient: Initial Frequency: 2-3x /Week Initial Duration: 4-6 Weeks Patient/Client Instruction: Educate patient on: Condition, Plan of Care, Risk Factors, Benefits of Fitness Program For the Purpose of:: To improve self management Therapeutic Exercise to Include: Strength training, Body mechanics, Postural training, Neuromotor development, In an aquatic setting, Dynamic Lumbar Stabilization For the Purpose of:: To decrease pain, To increase ROM, To improve muscle performance and motor function, To increase tolerance to activity/condition/position, To improve ability of physical actions for home/community/work/leisure This patient was last seen in our office 03/13/20. Pertinent comments regarding their Physical therapy will appear below: This patient has not returned to Physical Therapy and is appropriate to return to MD for further follow-up as needed. At this point I will be discontinuing this patient from physical therapy. I would be happy to see this patient again in the future if found appropriate by the physician. Thank you! Nevin Ewing, PT, Cert MDT
== END 2020-03-13 19:00 | disposition home or self-care (01) ==
LOC: PT 10:00
PROVIDERS: PCP Internal Medicine; Referring Provider Orthopaedic Surgery; Visit Provider Orthopaedic Surgery
DX: M51.36 Other intervertebral disc degeneration, lumbar region (principal)
CPT/HCPCS: 97110; 97112; 97162; 97164; 97530

== ENCOUNTER → 2020-03-22 15:24 | Outpatient (CLI) | payer OTHER, SELFPAY ==
[2020-01-19 08:51] VITALS: BMI 34.9
--- NOTE | 2020-03-22 15:44 | MRI_ITS ---
STUDY: MRI LUMBAR SPINE WITHOUT CONTRAST REASON FOR EXAM: Female, 69 years old. DDD, L HIP ACHE INTO POSTERIOR L KNEE INTO CALF X FEW MONTHS NO TRAUMA TECHNIQUE: Standardized fat and water weighted pulse sequences were obtained in the sagittal and axial planes. COMPARISON: None FINDINGS: T12-L1: Normal endplates. Normal disc height, hydration and morphology. Normal bilateral facet joints. Normal central canal and bilateral lateral recesses. Normal bilateral intervertebral neural foramina. Normal lumbar lordosis. Mild levoscoliosis centered at L1/L2. Normal conus medullaris that terminates at the L1/L2. L1-2: Normal endplates. Normal disc height, hydration and morphology. Normal bilateral facet joints. Normal central canal and bilateral lateral recesses. Normal bilateral intervertebral neural foramina. L2-3: Normal endplates. Normal disc height, hydration and morphology. Normal bilateral facet joints. Normal central canal and bilateral lateral recesses. Normal bilateral intervertebral neural foramina. L3-4: Mild bilateral facet hypertrophy and ligament flavum hypertrophy. Some disc desiccation but no disc protrusion, spinal stenosis, or neural foraminal stenosis. L4-5: Mild bilateral facet hypertrophy and ligament flavum hypertrophy. Mild broad disc protrusion produces mild spinal stenosis with mild bilateral lateral recess stenosis and mild bilateral neural foraminal stenosis. L5-S1: Mild broad disc protrusion produces mild spinal stenosis and mild bilateral neural foraminal stenosis. Normal visualized sacral ala. Normal visualized paraspinous soft tissue structures. MRI/Spine Lumbar (Routine) IMPRESSION: Mild levoscoliosis and degenerative disc disease as described above. Electronically Signed: Josiah Mcdowell MD at 16:38 EST Tel , Service support ,
== END ==
PROVIDERS: PCP Internal Medicine; Referring Provider Orthopaedic Surgery; Visit Provider Orthopaedic Surgery
DX: M51.36 Other intervertebral disc degeneration, lumbar region (principal)
CPT/HCPCS: 72148

== ENCOUNTER → 2020-04-25 18:37 | Outpatient (CLI) | payer OTHER, SELFPAY ==
[2020-04-25 17:03] VITALS: BMI 34.0
== END ==
PROVIDERS: PCP Internal Medicine; Visit Provider Physician Assistant Surgical
DX: Z20.828 Contact with and (suspected) exposure to other viral communicable diseases (principal)
CPT/HCPCS: 87635; U0003

== ENCOUNTER → 2020-04-29 10:47 | Outpatient (CLI) | payer OTHER, SELFPAY ==
[2020-04-25 17:03] VITALS: BMI 34.0
--- NOTE | 2020-04-29 10:51 | RAD_ITS ---
STUDY: X-RAY - LEFT FOOT CLINICAL: Female, 70 years old. FOOT PAIN TECHNIQUE: 3 view(s) of the foot. COMPARISON: None. FINDINGS: There is demineralization of the rear and midfoot bones. Large heel spurs present. Normal visualized subtalar, talonavicular, calcaneocuboid, tarsal and tarsometatarsal articulations. There is demineralization of the metatarsi. There is degenerative arthrosis of the metatarsophalangeal joint of the hallux . Normal tibial and fibular sesamoid bones. Normal interphalangeal joint of the great toe. Normal phalanges of the great toe. Normal second through fifth metatarsophalangeal joints. Normal interphalangeal joints and phalanges of the lesser toes. The soft tissue structures are unremarkable. RAD/Foot min 3 Views IMPRESSION: Diffuse demineralization with no evidence of acute osseous injury. Electronically Signed: Gera Chua DO at 9:28 EST , Service support ,
--- NOTE | 2020-04-29 10:51 | RAD_ITS ---
STUDY: X-RAY - RIGHT FOOT CLINICAL: Female, 70 years old. FOOT PAIN TECHNIQUE: 3 view(s) of the foot. COMPARISON: None. FINDINGS: There is demineralization of the rear and midfoot bones. Large heel spur and Achilles tendon enthesophyte is present. Normal visualized subtalar, talonavicular, calcaneocuboid, tarsal and tarsometatarsal articulations. There is demineralization of the metatarsi. There is degenerative arthrosis of the metatarsophalangeal joint of the hallux . Normal tibial and fibular sesamoid bones. Normal interphalangeal joint of the great toe. Normal phalanges of the great toe. Normal second through fifth metatarsophalangeal joints. Normal interphalangeal joints and phalanges of the lesser toes. The soft tissue structures are unremarkable. RAD/Foot min 3 Views IMPRESSION: Degenerative changes with diffuse demineralization, otherwise no evidence of acute osseous injury. Electronically Signed: Gera Chua DO at 9:35 EST , Service support ,
== END ==
PROVIDERS: PCP Internal Medicine; Referring Provider Podiatrist; Visit Provider Podiatrist
DX: S92.911A Unspecified fracture of right toe(s), initial encounter for closed fracture (principal); S92.912A Unspecified fracture of left toe(s), initial encounter for closed fracture
CPT/HCPCS: 73630

== ENCOUNTER → 2020-05-25 08:03 | Outpatient (CLI) | payer OTHER, SELFPAY ==
[2020-04-25 17:03] VITALS: BMI 34.0
--- NOTE | 2020-05-25 08:05 | NM_ITS ---
CLINICAL: 70-year-old female with reported history of carcinoma of the breast with current complaint of low back discomfort. WHOLE BODY 99m Tc MDP RADIONUCLIDE BONE SCINTIGRAPHY COMPARISON: Previous whole body bone scintigraphy study dated 03/31/2014 FINDINGS: Following the intravenous administration of 26.1 mCi of 99m Tc MDP, whole body bone images reveal: 1. There is an increase in radiopharmaceutical concentration identified in the acromioclavicular, glenohumeral and sternoclavicular compartments of both shoulders, bilateral wrists and hands, the visualized right elbow, knee articulations bilaterally, the right ankle, right mid and forefoot. 2. The remaining skeletal structures are scintigraphically unremarkable with normal-appearing renal images and urinary bladder activity identified. An increase in tracer distribution is defined in the bilateral maxilla most consistent with periodontal disease and/or periostitis. NM/Bone Scan Whole Body IMPRESSION: 1. The increase in radiopharmaceutical concentration identified in the bilateral shoulders, right and left wrists, both hands, right elbow, knees bilaterally, the right ankle, the right mid and forefoot is most consistent with degenerative arthritis. 2. Overall compared to the previous whole body bone scintigraphy study dated 03/31/2014, there is no significant interval change. There is no typical scintigraphic evidence of diffuse axial skeletal metastatic disease with meticulous attention paid to the thoracic and lumbar spine on the current examination. Electronically Signed: Josiah Childress DO at 22:01 EST Tel , Service support ,
== END ==
PROVIDERS: PCP Internal Medicine; Referring Provider Internal Medicine Medical Oncology; Visit Provider Internal Medicine Medical Oncology
DX: M54.5 Low back pain (principal); Z85.3 Personal history of malignant neoplasm of breast; Z85.828 Personal history of other malignant neoplasm of skin
CPT/HCPCS: 78306

== ENCOUNTER → 2020-08-10 15:48 | Outpatient (CLI) | payer OTHER, SELFPAY ==
[2020-05-30 15:11] VITALS: BMI 33.8
[2020-08-10 17:26] LABS: Thyroid Stim Hormone (TSH) 1.54 uIU/mL (0.358-3.74)
== END ==
PROVIDERS: PCP Internal Medicine; Referring Provider Internal Medicine Endocrinology, Diabetes & Metabolism; Visit Provider Internal Medicine Endocrinology, Diabetes & Metabolism
DX: E06.3 Autoimmune thyroiditis (principal)
CPT/HCPCS: 36415; 84439; 84443

== ENCOUNTER → 2020-08-18 09:08 | Outpatient (CLI) | payer OTHER, SELFPAY ==
[2020-05-30 15:11] VITALS: BMI 33.8
--- NOTE | 2020-08-18 09:10 | RAD_ITS ---
STUDY: X-RAY - RIGHT FOOT CLINICAL: Female, 70 years old. FOOT/TOE INJURY TECHNIQUE: 3 view(s) of the foot. COMPARISON: 04/29/2020 FINDINGS: Normal talus, calcaneus, and tarsal bones. Small type I accessory navicular bone. Tiny plantar calcaneal enthesophyte. Moderate-sized posterior calcaneal enthesophyte. Normal visualized subtalar, talonavicular, calcaneocuboid, tarsal and tarsometatarsal articulations. Normal metatarsi. Normal metatarsophalangeal joint of the great toe. Normal tibial and fibular sesamoid bones. Normal interphalangeal joint of the great toe. Normal phalanges of the great toe. Normal second through fifth metatarsophalangeal joints. Oblique radiolucency of the shaft of the fifth proximal phalanx may represent a nondisplaced fracture. The soft tissue structures are unremarkable. RAD/Foot min 3 Views IMPRESSION: Suspect nondisplaced oblique fracture the shaft of the fifth proximal phalanx and clinical correlation is recommended. Electronically Signed: Josiah Mcdowell MD at 7:46 EDT Tel , Service support ,
== END ==
PROVIDERS: PCP Internal Medicine; Referring Provider Podiatrist; Visit Provider Podiatrist
DX: S92.911A Unspecified fracture of right toe(s), initial encounter for closed fracture (principal)
CPT/HCPCS: 73630

== ENCOUNTER → 2020-11-22 15:00 | Outpatient (CLI) | payer OTHER, SELFPAY ==
[2020-05-30 15:11] VITALS: BMI 33.8
--- NOTE | 2020-11-22 15:01 | BI_ITS ---
MAMMOGRAPHY - UNILATERAL SCREENING: LEFT BREAST REASON FOR EXAM: Female, 70 years old. Routine annual screening examination (unilateral). PERTINENT HISTORY: Personal history of breast cancer. Prior right mastectomy. Grandmother with breast cancer. TECHNIQUE: Digital unilateral breast sammy (3D mammographic acquisition) in the CC and MLO projections. 2-D mediolateral oblique (MLO) and craniocaudad (CC) views of both breasts were obtained. CAD: Full Field Digital Mammography with Computer Added Detection was performed. COMPARISON: Comparison is made with prior examination dated 09/29/2019. FINDINGS: Breast Composition: There are scattered areas of fibroglandular density. There are no dominant masses or suspicious calcifications. No other significant abnormalities are identified. There has been no significant change since the prior study. BI/SCREEN MAMM (CAD) W/SAMMY UNI L IMPRESSION: Stable unilateral screening mammogram. Yearly follow-up mammogram recommended. (A) ASSESSMENT CATEGORY: BIRADS Category 1: Negative. A letter regarding these results will be sent to the patient by the facility within 30 days. Approximately 10% of breast cancers are not detected by mammography. A normal mammogram should not delay biopsy of a clinically suspicious abnormality. [id number] Electronically Signed: Bartolo Buck MD at 15:33 EDT , Service support ,
== END ==
PROVIDERS: PCP Internal Medicine; Referring Provider Internal Medicine Medical Oncology; Visit Provider Internal Medicine Medical Oncology
DX: Z12.31 Encounter for screening mammogram for malignant neoplasm of breast (principal)
CPT/HCPCS: 77063; 77067

== ENCOUNTER 2020-12-07 15:53 | Emergency (ER) | payer OTHER, SELFPAY ==
[2020-05-30 15:11] VITALS: BMI 33.8
[2020-12-07 15:54] VITALS: BP 162/72; PULSE 73; PULSE 74; RESP 16; TEMP 36.4; O2SAT 98; BMI 33.3
--- NOTE | 2020-12-07 16:05 | EKG12_ITS ---
Test Reason : PALP Blood Pressure : / mmHG Vent. Rate : 068 BPM Atrial Rate : 068 BPM P-R Int : 166 ms QRS Dur : 102 ms QT Int : 414 ms P-R-T Axes : 055 015 039 degrees QTc Int : 440 ms Normal sinus rhythm Incomplete right bundle branch block Borderline ECG Confirmed by AVA COTO, CARLOS ([id number]), society editor CHUCK BONILLA ([id number]) on 12/14/2020 12:38:56 PM Referred By: DARRYL Confirmed By:WU ESCALANTE MD
[2020-12-07 16:46] LABS: Absolute Lymphocyte Count 2.16 X10^3/uL (0.83-4.51); Absolute Neutrophil Count 5.8 X10^3/uL (2.0-7.7); Basophil# 0.03 X10^3/uL; Basophil% 0.3 % (0-1); Eosinophil# 0.14 X10^3/uL; Eosinophils% 1.6 % (0-5); Hematocrit 41.4 % (37-47); Hemoglobin 14.3 g/dL (12.0-15.0); Lymphocyte # 2.16 X10^3/ul (0.83-4.51); Lymphocyte % 24.7 % (19-41); Mean Corp Hgb Conc 34.5 g/dL (32-36); Mean Corpuscular Hgb 30.5 pg (27.0-32.0); Mean Corpuscular Volume 88.3 fL (81-99); Mean Platelet Vol. 11.8 fl (6.2-12.0); Monocyte# 0.62 X10^3/uL; Monocyte% 7.1 % (0-10); NRBC Flagged by Analyzer 0 % (0-5); Neutrophil # 5.75 X10^3/uL (2.7-7.7); Neutrophil % 65.8 % (47-70); Platelet Count 210 K/mm3 (150-450); RBC Distribution Width CV 12.4 % (11.6-14.6); RBC Distribution Width SD 39.6 fl (35.1-43.9); Red Blood Count 4.69 M/mm3 (4.2-5.4); White Blood Count 8.7 K/mm3 (4.4-11.0)
[2020-12-07 16:55] LABS: Troponin-I HS 4.3 pg/mL (3.0-53.7)
--- NOTE | 2020-12-07 17:00 | RAD_ITS ---
STUDY: X-RAY CHEST REASON FOR EXAM: Female, 70 years old. Palpitations TECHNIQUE: Single frontal view of the chest. COMPARISON: 08/25/2019. FINDINGS: Minimal patchy opacity right base. There is no demonstrated pleural abnormality. Normal size heart. Normal mediastinum and susanne. Normal visualized pulmonary arteries. Normal visualized aortic arch and descending thoracic aorta. Normal visualized thoracic spine. Normal visualized ribs, clavicles, and shoulders. There is no demonstrated abnormality of the visualized soft tissue structures of the upper abdomen. RAD/Chest 1 View (Portable) IMPRESSION: Minimal right base opacity may represent atelectasis versus pneumonia as clinically indicated. Electronically Signed: Thierry Cates MD at 17:26 EDT Tel , Service support ,
[2020-12-07 17:12] LABS: AST(SGOT) 20 U/L (15-37); Alanine Aminotransfer ALT/SGPT 32 U/L (13-56); Albumin, Serum 3.8 g/dL (3.2-5.0); Alkaline Phosphatase 93 U/L (45-117); Anion Gap 6 (5-15); BUN 11 mg/dL (7-18); BUN/Creat Ratio 16.6 RATIO (10-20); Calcium,Total 8.6 mg/dL (8.5-10.1); Chloride 105 mmol/L (98-107); Creatinine, Serum 0.66 mg/dL (0.55-1.02); EST Glomerular Filtration Rate 93 mL/min (>60); Est Glom Filt Rate - Afr Amer 112 mL/min (>60); Estimated Creatinine Clearance 42.07 ml/min; Globulin 3.8 g/dL (2.2-4.2); Glucose 95 mg/dL (74-106); Potassium 3.8 mmol/L (3.5-5.1); Protein, Total 7.6 g/dL (6.4-8.2); Sodium Level 139 mmol/L (136-145)
--- NOTE | 2020-12-07 18:41 | EX.ED.DYSGE1 ---
HPI History of Present Illness Chief Complaint: Palpitations Narrative Narrative: 70-year-old female presenting with palpitations for the last month. She states these are intermittent. She denies chest pain. Patient also states that she does have some anxiety which may be causing this especially when she senses the palpitations. Patient denies fever, chills, myalgias, change in taste or smell. Patient states that she does have some rhinorrhea which is not abnormal for her. She also states she has a slight chronic cough which is unchanged. Patient denies history of atrial fibrillation or SVT. Patient also admits to the sensation of sinus pressure which she states has been going on for days. [facility] Medical History Anxiety Cellulitis of left foot Esophageal dyskinesia Esophageal spasm Genital herpes Vonda's disease Heart disease History of breast cancer History of skin cancer Hypertension IBS (irritable bowel syndrome) MVP (mitral valve prolapse) Osteoarthritis Osteopenia Peptic ulcer Psoriasis Right rotator cuff tear Rosacea Thyromegaly Uninodular goiter Home Medications clobetasol 0.05 % topical cream 1 applic TOPICAL DAILY 10/14/19 [History Last Taken Unknown] salattmg-atlxgui-tvcm-lutein tablet 1 tab PO DAILY 10/14/19 [History Last Taken Unknown] omeprazole 20 mg capsule,delayed release 20 mg PO DAILY 10/14/19 [History Last Taken Unknown] rosuvastatin 10 mg tablet 10 mg PO DAILY 10/14/19 [History Last Taken Unknown] triamcinolone acetonide 0.1 % topical cream 1 applic TOPICAL DAILY 10/14/19 [History Last Taken Unknown] clotrimazole 1 % topical cream 1 applic TOPICAL BID 11/26/19 [History Last Taken Unknown] cholecalciferol (vitamin D3) [Vitamin D3] 25 mcg PO DAILY 12/07/20 [History Last Taken Unknown] levothyroxine 50 mcg PO DAILY 12/07/20 [History Last Taken Unknown] metoprolol succinate [Toprol XL] 25 mg PO DAILY #30 tab 12/07/20 [Rx Last Taken Unknown] Allergy/AdvReac Type Severity Reaction Status Date / Time adhesive Allergy Mild Rash Verified 12/07/20 16:37 ketorolac Allergy Unknown Verified 12/07/20 16:37 Opioids - Morphine Analogues Allergy Unknown Verified 12/07/20 16:37 pseudoephedrine Allergy Unknown Verified 12/07/20 16:37 [From Sudafed] celecoxib [From Celebrex] AdvReac Mild history of Verified 12/07/20 16:37 ulcer cyclobenzaprine AdvReac Mild mental Verified 12/07/20 16:37 [From Flexeril] status change duloxetine [From Cymbalta] AdvReac Mild mental Verified 12/07/20 16:37 status change escitalopram [From Lexapro] AdvReac Mild mental Verified 12/07/20 16:37 status change lorazepam [From Ativan] AdvReac Mild mental Verified 12/07/20 16:37 status change morphine AdvReac Mild mental Verified 12/07/20 16:37 status change tramadol AdvReac Mild mental Verified 12/07/20 16:37 status change albuterol AdvReac chest pain Verified 12/07/20 16:37 cephalexin AdvReac Unknown Verified 12/07/20 16:37 pseudoephedrine HCl AdvReac Other Verified 12/07/20 16:37 [From Sudafed] sulfamethoxazole AdvReac mental Verified 12/07/20 16:37 [From Bactrim] status change trimethoprim [From Bactrim] AdvReac mental Verified 12/07/20 16:37 status change Family History Father Prostate cancer Mother Heart disease Surgical History H/O mastectomy H/O umbilical hernia repair History of hysterectomy History of tonsillectomy Hx of cholecystectomy Social History Smoking Status: Never smoker ROS ROS ED Constitutional Constitutional ED: Denies chills, fever(s) or sweats Eyes Eyes: Denies blurry vision or change in vision ENT ENT ED: Reports rhinorrhea; Denies ear pain or sore throat Cardiovascular Cardiovascular: Reports palpitations; Denies chest pain or racing heartbeat Respiratory/Chest Respiratory/Chest: Reports cough and dyspnea; Denies dyspnea on exertion or sputum Gastrointestinal Gastrointestinal: Denies abdominal pain, nausea or vomiting Genitourinary Genitourinary ED: Denies dysuria or hematuria Musculoskeletal Musculoskeletal: Denies arthralgias or myalgias Integumentary Denies abscess or rash Neurologic Neurologic: Denies headache(s) or paresthesias Psychiatric Psychiatric: Reports anxiety; Denies depression EXAM Physical Exam Const Vital Signs: 12/07/20 15:54 12/07/20 16:41 12/07/20 18:42 Temperature 97.5 F L Temperature Source Temporal Pulse Rate 74 70 Respiratory Rate 16 15 Respiratory Effort Normal Non-Labored Respiratory Pattern Normal Blood Pressure 162/72 H 192/76 H Blood Pressure Mean 102 114 Pulse Ox 98 97 Oxygen Delivery Method Room Air Room Air 12/07/20 19:32 12/07/20 19:37 Temperature Temperature Source Pulse Rate 67 72 Respiratory Rate 16 16 Respiratory Effort Respiratory Pattern Blood Pressure 189/56 H 189/56 H Blood Pressure Mean 100 Pulse Ox 98 98 Oxygen Delivery Method Room Air Positive well nourished General Appearance ED: NAD; Negative for pallor HEENT Reports normocephalic, head/scalp atraumatic and moist mucous membranes Negative for trauma Eyes PERRL and EOMs intact bilaterally Neck no lymphadenopathy and supple Chest Wall inspection of chest normal and palpation of chest normal Resp normal respiratory effort and clear to auscultation bilaterally Auscultation: Negative for rales, rhonchi or wheezes Cardio regular rate and regular rhythm Narrative: Deferred Extremity normal to inspection General Extremety ED: Yes edema and tenderness General Extremity: edema Neuro oriented x3 and CN's II-XII intact bilaterally Sensorium / Orientation: alert Motor Exam: strength 5/5 throughout Psych mental status grossly normal Attitude: No agitated Skin no rashes or lesions noted and no wounds General Skin Exam: Negative for jaundice or pallor MDM MDM MDM Narrative Medical decision making narrative: Patient had blood work done which is all normal. Her high-sensitivity troponin is 4.3. Her EKG is sinus rhythm at [address] elevation, depression, dysrhythmia on my interpretation. There is an incomplete right bundle branch block. Chest x-ray on my interpretation shows no acute cardiopulmonary process however the radiologist speculates on right lung base opacity versus atelectasis. On my interpretation the chest x-ray looks unchanged. Patient not having any change in cough or sputum. Patient has no elevated white blood cell count. CBC and CMP are unremarkable. Troponin is negative at 4.3. TSH and T4 are within normal limits and patient is on Synthroid. Patient does have an elevated blood pressure today and states he has had this in the past but has not been taking blood pressure medicine because she states she has not needed it. Discussed with Dr. Smith who recommended starting her on Toprol 25 mg extended release. She stated that she could get her in the office tomorrow because they have walk-in hours tomorrow. Patient counseled on this and will be started on medication in the ED. Patient stable for discharge at this time. Impression: 1. Palpitations 2. Hypertension established?[id number] Lab Data Attestation: I reviewed the patient's lab results. Labs: Laboratory Results - last 24 hr 12/07/20 12/07/20 12/07/20 16:14 16:14 16:14 WBC 8.7 RBC 4.69 Hgb 14.3 Hct 41.4 MCV 88.3 MCH 30.5 MCHC 34.5 RDW Std Deviation 39.6 RDW Coeff of Omkar 12.4 Plt Count 210 MPV 11.8 Immature Gran % (Auto) 0.500 Neut % (Auto) 65.8 Lymph % (Auto) 24.7 Ripley % (Auto) 7.1 Eos % (Auto) 1.6 Baso % (Auto) 0.3 Absolute Neuts (auto) 5.8 Absolute Lymphs (auto) 2.16 Nucleated RBC % 0 Sodium 139 Potassium 3.8 Chloride 105 Carbon Dioxide 28.0 Anion Gap 6 BUN 11 Creatinine 0.66 Estim Creat Clear Calc 42.07 Est GFR (MDRD) Af Amer 112 Est GFR (MDRD) Non-Af 93 BUN/Creatinine Ratio 16.6 Glucose 95 Calcium 8.6 Total Bilirubin 0.60 AST 20 ALT 32 Alkaline Phosphatase 93 Troponin I High Sens 4.3 Total Protein 7.6 Albumin 3.8 Globulin 3.8 Albumin/Globulin Ratio 1.0 TSH Free T4 12/07/20 19:16 WBC RBC Hgb Hct MCV MCH MCHC RDW Std Deviation RDW Coeff of Omkar Plt Count MPV Immature Gran % (Auto) Neut % (Auto) Lymph % (Auto) Ripley % (Auto) Eos % (Auto) Baso % (Auto) Absolute Neuts (auto) Absolute Lymphs (auto) Nucleated RBC % Sodium Potassium Chloride Carbon Dioxide Anion Gap BUN Creatinine Estim Creat Clear Calc Est GFR (MDRD) Af Amer Est GFR (MDRD) Non-Af BUN/Creatinine Ratio Glucose Calcium Total Bilirubin AST ALT Alkaline Phosphatase Troponin I High Sens Total Protein Albumin Globulin Albumin/Globulin Ratio TSH 0.76 Free T4 1.32 Radiography Diagnostic Testing: Radiology Impression Chest X-Ray 12/07/20 17:00 IMPRESSION: Minimal right base opacity may represent atelectasis versus pneumonia as clinically indicated. Electronically Signed: Thierry Cates MD at 17:26 EDT Tel , Service support , Discharge Plan Triage Chief Complaint: Palpitations ED Provider: Dash Lucas Dx/Rx/DC Orders Instructions: ED Hypertension, To Be Confirmed, ED Palpitations Prescriptions: New metoprolol succinate [Toprol XL] 25 mg tablet extended release 24 hr 25 mg PO DAILY Qty: 30 RF: 0 No Action rosuvastatin 10 mg tablet 10 mg PO DAILY RF: 0 omeprazole 20 mg capsule,delayed release(DR/EC) 20 mg PO DAILY RF: 0 ekiutsnp-objrhpo-xmit-lutein Tablet 1 tab PO DAILY RF: 0 triamcinolone acetonide 0.1 % cream 1 applic TOPICAL DAILY RF: 0 clobetasol 0.05 % cream 1 applic TOPICAL DAILY RF: 0 clotrimazole 1 % cream 1 applic TOPICAL BID RF: 0 levothyroxine 50 mcg tablet 50 mcg PO DAILY RF: 0 cholecalciferol (vitamin D3) [Vitamin D3] 25 mcg (1,000 unit) Capsule 25 mcg PO DAILY RF: 0 Primary Care Provider: Theresa Rodriguez Referrals: Theresa Rodriguez DO [Primary Care Provider] - Disposition Disposition: Home, Self Care Discharge Date/Time: 12/07/20 19:47
[2020-12-07 18:42] VITALS: BP 192/76; PULSE 70; RESP 15; O2SAT 97
[2020-12-07 19:32] VITALS: BP 189/56; PULSE 67; RESP 16; O2SAT 98
[2020-12-07] MEDS: Metoprolol(XL)Succ 25 MG Tablet PO (19:33)
[2020-12-07 19:37] VITALS: BP 189/56; PULSE 72; RESP 16; O2SAT 98
[2020-12-07 20:02] LABS: T4 Free Direct 1.32 ng/dL (0.76-1.46); Thyroid Stim Hormone (TSH) 0.76 uIU/mL (0.358-3.74)
== END 2020-12-07 19:47 | disposition home or self-care (01) ==
PROVIDERS: Emergency Provider Student in an Organized Health Care Education/Training Program; PCP Internal Medicine
DX: R00.2 Palpitations (principal); I10 Essential (primary) hypertension; I45.10 Unspecified right bundle-branch block; E06.3 Autoimmune thyroiditis; F41.9 Anxiety disorder, unspecified; I34.1 Nonrheumatic mitral (valve) prolapse; K58.9 Irritable bowel syndrome, unspecified; M19.90 Unspecified osteoarthritis, unspecified site; Z79.1 Long term (current) use of non-steroidal anti-inflammatories (NSAID); Z79.899 Other long term (current) drug therapy; Z85.3 Personal history of malignant neoplasm of breast
CPT/HCPCS: 71045; 80053; 84439; 84443; 84484; 85025; 93005; 99283; A4216

== ENCOUNTER → 2021-01-27 11:27 | Outpatient (CLI) | payer OTHER, SELFPAY ==
--- NOTE | 2021-01-27 11:29 | US_ITS ---
STUDY: THYROID ULTRASOUND REASON FOR EXAM: Female, 70 years old. follow up nodules, TI-RAD PLEASE TECHNIQUE: Ultrasound evaluation of the thyroid was performed with real-time and static snyder-scale imaging. COMPARISON: 09/21/2019 FINDINGS: RIGHT LOBE: The right lobe of the thyroid gland measures 5.4 x 2 x 1.7 cm. There is a heterogeneous echotexture. There are 4 nodules. Superior nodule measures 15 x 10 x 12 mm. The lesion is solid with regular margins and regina nodular doppler flow. It is similar in ultrasound characteristics. Mid nodule measures 5.6 x 3.6 x 5.2 mm. This is labelled #2. The lesion is solid with regular margins and regina nodular doppler flow. This measured previously 5.7 x 3.3 mm. This is stable in size. Mid nodule measures 13 x 12 x 10 mm. This nodule is labeled #3. Previous kidney measures 8.9 mm. This is enlarged. The lesion is solid with regular margins and regina nodular doppler flow. Inferior nodule measures 18 x 15 x 11 mm. This nodule is labeled #4. This previously measured 21 mm and therefore it is smaller. The lesion is solid with regular margins and intra-nodular doppler flow. LEFT LOBE: The left lobe of the thyroid gland measures 5 x 2.2 x 2.4 cm. There is a heterogeneous echotexture. There is a nodule. This measures 4 x 5 x 3 mm. Lesion is mostly hypoechoic. It is cystic. ISTHMUS: The isthmus measures 6.6 mm. The regional lymph nodes are normal. US/Thyroid IMPRESSION: The superior RIGHT nodules. TR4: This nodule is moderately suspicious. Recommend follow-up thyroid ultrasounds at 1, 2 and 4 years. This nodule is mixed cystic and solid, hyperechoic or isoechoic, jusst-iwot-udlg, is lobulated or irregular and contains no echogenic foci. This nodule is moderately suspicious. Recommend follow-up thyroid ultrasounds at 1, 2 and 4 years. The RIGHT nodule #3. It has enlarged. TR4: Moderately Suspicious: FNA if ? 1.5 cm; Follow if ? 1 cm at 1, 2, 3, and 5 y The other RIGHT nodules. TR3: Mildly Suspicious: FNA if ? 2.5 cm; Follow if ? 1.5 cm at 1, 3, and 5 y There is a new cystic left nodules. TI-RADS points: 0. TI-RADS category: TR1. This nodule is benign and no FNA or follow-up is necessary. This nodule is cystic or nearly completely cystic. TI-RADS points: 0. TI-RADS category: TR1. This nodule is benign and no FNA or follow-up is necessary. Electronically Signed: Del Schroeder MD at 10:59 EDT , Service support ,
== END ==
PROVIDERS: PCP Internal Medicine; Referring Provider Internal Medicine Endocrinology, Diabetes & Metabolism; Visit Provider Internal Medicine Endocrinology, Diabetes & Metabolism
DX: E04.2 Nontoxic multinodular goiter (principal)
CPT/HCPCS: 76536

== ENCOUNTER → 2021-02-08 12:54 | Outpatient (CLI) | payer OTHER, SELFPAY ==
--- NOTE | 2021-02-08 12:57 | BD_ITS ---
STUDY: DUAL ENERGY X-RAY ABSORPTIOMETRY / DXA REASON FOR EXAM: Female, 70 years old. Follow up osteopenia TECHNIQUE: Bone Mineral Density (BMD) measurements of lumbar spine and bilateral hips were obtained. COMPARISON: Comparison is made with prior examination dated 03/30/2015. FINDINGS: Lumbar Spine (L1-L4): g/cm2 (0.894) / T-score (-1.4) / Z-score (0.9) Findings are suggestive of osteopenia with a low fracture risk. Left Femur Total: g/cm2 (0.831) / T-score (-0.9) / Z-score (0.8) Left Femoral Neck: g/cm2 (0.716) / T-score (-1.2) / Z-score (0.8) Right Femur Total: g/cm2 (0.892) / T-score (-0.4) / Z-score (1.3) Right Femoral Neck: g/cm2 (0.711) / T-score (-2.2) / Z-score (0.7) The T-Scores on the most recent prior examination were: Lumbar Spine (L1-L4): There has been improvement of bone density since the previous examination. Left Femur Total: which represents a worsening of 0.5%. Right Femur Total: which represents a worsening of 0.3%. BD/Dexa Bone Density Study IMPRESSION: The patient is considered osteopenic as outlined below according to World [employer] Organization (WHO) criteria with a high fracture risk. There has been worsening of bone density since the previous examination. Reference Information: The T-score is the number of standard deviations above or below the standard which is normal for young adults at their peak bone mineral density. The World Health Organization (WHO) interprets the T-scores as follows: Above -1 Normal bone density Between -1 and -2.5 Osteopenia Equal to / or below -2.5 Osteoporosis As a practical clinical guideline, osteopenia may be graded as follows: Mild -1 through -1.5 Moderate -1.6 through -2.0 Severe -2.1 through -2.4 The Z-score is the number of standard deviations above or below age-matched controls. A Z-score of less than -1.5 would be considered abnormal. References: 1. NIH Osteoporosis and Related Bone Diseases www osteo.org 2. International Society for Clinical Densitometry www iscd.org 3. National Osteoporosis Foundation www nof.org Electronically Signed: Bartolo Buck MD at 14:32 EDT , Service support ,
== END ==
PROVIDERS: PCP Internal Medicine; Referring Provider Internal Medicine Endocrinology, Diabetes & Metabolism; Visit Provider Internal Medicine Endocrinology, Diabetes & Metabolism
DX: M85.80 Other specified disorders of bone density and structure, unspecified site (principal)
CPT/HCPCS: 77080

== ENCOUNTER → 2021-03-16 15:39 | Outpatient (CLI) | payer OTHER, SELFPAY ==
[2021-03-16 17:05] LABS: Ferritin 91 ng/mL (8-252)
[2021-03-16 17:09] LABS: Vitamin D,25 Hydroxy 57.6 ng/mL
== END ==
PROVIDERS: Nurse Practitioner Family; PCP Internal Medicine; Referring Provider Internal Medicine Endocrinology, Diabetes & Metabolism; Visit Provider Internal Medicine Endocrinology, Diabetes & Metabolism
DX: M85.80 Other specified disorders of bone density and structure, unspecified site (principal); E61.1 Iron deficiency
CPT/HCPCS: 36415; 82306; 82728

== ENCOUNTER 2021-07-31 09:50 | Outpatient (CLI) | payer OTHER, SELFPAY ==
--- NOTE | 2021-07-31 09:56 | US_ITS ---
STUDY: ABDOMINAL ULTRASOUND REASON FOR EXAM: Female, 71 years old. Abdominal pain. TECHNIQUE: Transabdominal ultrasound was performed with real-time and static snyder scale imaging. TECHNICAL QUALITY: Adequate. COMPARISON: Comparison is made with prior examination 09/18/2011. FINDINGS: Liver: The liver measures 16.4 cm. There is normal echogenicity of the liver. The bile ducts are within normal limits. There is hepatic color flow. The direction of portal flow is hepatopetal. There is no demonstrated mass lesion. Gallbladder: The patient is status post cholecystectomy. Common Bile Duct (C.B.D.): The common bile duct measures 7.7 mm. Pancreas: Normal size of the head, body and tail of the pancreas. There is normal echogenicity of the pancreas. There is no demonstrated pancreatic mass or cyst. Spleen: Normal size of the spleen. The spleen measures 11.4 cm x 6 cm x 5.1 cm. Right Kidney: Normal size of the right kidney. The right kidney measures 9.5 cm x 5.8 cm x 3.8 cm. There is thinning of the renal cortex. The right cortex measures 0.8 cm. There is no demonstrated renal mass or cyst. There is no right hydronephrosis. Left Kidney: Normal size of the left kidney. The left kidney measures 10.3 cm x 5.7 cm x 4 cm. Normal renal cortex. The left cortex measures 1.3 cm. 2 parapelvic cysts are seen. The larger measures 2.1 cm x 2 cm x 1 cm. There is no left hydronephrosis. Aorta: Unremarkable I.V.C.: The IVC is patent. There is no ascites. US/Abdomen Complete IMPRESSION: Status post cholecystectomy. Left parapelvic renal cysts. Electronically Signed: Bartolo Buck MD at 13:01 EDT ,
== END 2021-07-31 23:59 | disposition home or self-care (01) ==
LOC: US 09:51
PROVIDERS: PCP Internal Medicine; Referring Provider Nurse Practitioner; Visit Provider Nurse Practitioner
DX: R10.9 Unspecified abdominal pain (principal)
CPT/HCPCS: 76700

== ENCOUNTER 2021-10-12 05:24 | Emergency (ER) | payer OTHER, SELFPAY ==
[2021-10-12 05:26] VITALS: BP 119/102; PULSE 96; RESP 16; TEMP 36.7; O2SAT 96; BMI 33.6
--- NOTE | 2021-10-12 05:38 | EKG12_ITS ---
Test Reason : DYSRHYTHMIA Blood Pressure : / mmHG Vent. Rate : 082 BPM Atrial Rate : 082 BPM P-R Int : 184 ms QRS Dur : 102 ms QT Int : 410 ms P-R-T Axes : 060 012 014 degrees QTc Int : 479 ms Normal sinus rhythm Normal ECG Confirmed by JUANCHO COTO, GLADYS ([id number]), communications editor CHUCK BONILLA ([id number]) on 10/15/2021 12:55:35 PM Referred By: CELESTE Confirmed By:GLADYS DAWKINS MD
--- NOTE | 2021-10-12 05:39 | EDS_ITS ---
HPI History of Present Illness Chief Complaint: General Illness Detail of Chief Complaint: Not feeling well x2 days Informant: patient Narrative Narrative: Patient presents to the emergency department with complaint of not feeling well over the last 2 days. Patient has been sweating a lot. She has developed nausea and is vomited 3 times. She feels like she is going to have diarrhea but has not. She denies abdominal pain. She denies urinary symptoms. She denies chest pain or shortness of breath. She denies sick contacts. She has not had the COVID-vaccine. Prior similar symptoms: No PFSH PFSH Medical History Anxiety Cellulitis of left foot Esophageal dyskinesia Esophageal spasm Genital herpes Vonda's disease Heart disease History of breast cancer History of skin cancer Hypertension IBS (irritable bowel syndrome) MVP (mitral valve prolapse) Osteoarthritis Osteopenia Osteopenia determined by x-ray Palpitations Peptic ulcer Psoriasis Right rotator cuff tear Rosacea Thyromegaly Uninodular goiter Home Medications clobetasol 0.05 % topical cream 1 applic TOPICAL DAILY 10/14/19 [History Last Taken Unknown] ygkvoeba-fnchxei-pqsw-lutein tablet 1 tab PO DAILY 10/14/19 [History Last Taken Unknown] omeprazole 20 mg capsule,delayed release 20 mg PO DAILY 10/14/19 [History Last Taken Unknown] rosuvastatin 10 mg tablet 10 mg PO DAILY 10/14/19 [History Last Taken Unknown] triamcinolone acetonide 0.1 % topical cream 1 applic TOPICAL DAILY PRN 10/14/19 [History Last Taken Unknown] clotrimazole 1 % topical cream 1 applic TOPICAL BID 11/26/19 [History Last Taken Unknown] cholecalciferol (vitamin D3) [Vitamin D3] 25 mcg PO DAILY 12/07/20 [History Last Taken Unknown] metoprolol succinate [Toprol XL] 25 mg PO DAILY #30 tab 12/07/20 [Rx Last Taken Unknown] levothyroxine 50 mcg tablet See Rx Instructions PO .6x/week #78 tab 03/14/21 [Rx Last Taken Unknown] multivit,mineral-folic acid 800 mcg-vit K 100 mcg-herbal no.289 tablet 1 tab PO DAILY 05/29/21 [History Last Taken Unknown] fabrice-phsal-hyo [Uribel] cap PO 4X/DAY 10/12/21 [History Last Taken Unknown] ondansetron 4 mg PO Q8H PRN PRN #10 tab 10/12/21 [Rx Last Taken Unknown] turmeric mg PO 10/12/21 [History Last Taken Unknown] zinc 50 mg PO DAILY 10/12/21 [History Last Taken Unknown] Allergy/AdvReac Type Severity Reaction Status Date / Time adhesive Allergy Mild Rash Verified 05/29/21 14:10 ketorolac Allergy Unknown Verified 05/29/21 14:10 Opioids - Morphine Analogues Allergy Unknown Verified 05/29/21 14:10 pseudoephedrine Allergy Unknown Verified 05/29/21 14:10 [From Sudafed] celecoxib [From Celebrex] AdvReac Mild history of Verified 05/29/21 14:10 ulcer cyclobenzaprine AdvReac Mild mental Verified 05/29/21 14:10 [From Flexeril] status change duloxetine [From Cymbalta] AdvReac Mild mental Verified 05/29/21 14:10 status change escitalopram [From Lexapro] AdvReac Mild mental Verified 05/29/21 14:10 status change lorazepam [From Ativan] AdvReac Mild mental Verified 05/29/21 14:10 status change morphine AdvReac Mild mental Verified 05/29/21 14:10 status change tramadol AdvReac Mild mental Verified 05/29/21 14:10 status change albuterol AdvReac chest pain Verified 05/29/21 14:10 cephalexin AdvReac Unknown Verified 05/29/21 14:10 pseudoephedrine HCl AdvReac Other Verified 05/29/21 14:10 [From Sudafed] sulfamethoxazole AdvReac mental Verified 05/29/21 14:10 [From Bactrim] status change trimethoprim [From Bactrim] AdvReac mental Verified 05/29/21 14:10 status change Family History Father Prostate cancer Mother Heart disease Surgical History H/O mastectomy H/O umbilical hernia repair History of hysterectomy History of tonsillectomy Hx of cholecystectomy Social History Smoking Status: Never smoker ROS ROS ED Constitutional Constitutional ED: Reports systems reviewed and no addt'l complaints, except as documented, fever(s) and sweats; Denies body ache(s), change in weight or chills Eyes Eyes: Denies acute decrease in peripheral vision, change in vision, double vision or loss of vision ENT ENT ED: Reports none and sore throat; Denies ear pain, lip swelling, loss taste/smell, neck pain or otalgia Cardiovascular Cardiovascular: Reports none; Denies abdominal pain, chest pain with activity, leg edema, lightheadedness, palpitations, rapid heart rate or syncope Respiratory/Chest Respiratory/Chest: Reports none; Denies change in mental status, dry cough, dyspnea, hemoptysis, shortness of breath at rest or shortness of breath with exertion Gastrointestinal Gastrointestinal: Reports none, nausea and vomiting; Denies abdominal pain, change in stool character, diarrhea, hematemesis, hematochezia, melena or rectal bleeding Genitourinary Genitourinary ED: Reports none; Denies abdominal discomfort, anuria, dysuria, genital pain or polyuria Musculoskeletal Musculoskeletal: Reports none; Denies arthralgias, back pain, difficulty walking, extremity pain, muscle weakness or myalgias Integumentary Reports none; Denies abscess or rash Neurologic Neurologic: Reports none and headache(s); Denies abnormal gait, confusion, focal weakness, frequent falls, loss of vision, numbness, paresthesias, radicular pain, vertigo or weakness Psychiatric Psychiatric: Reports systems reviewed and no addt'l complaints, except as documented and none; Denies behavioral changes, confusion, difficulty concentrating, hallucinations, suicidal ideation, tactile hallucinations or visual hallucinations Endocrine Endocrinology: Denies none, cold intolerance, excessive sweating, fatigue or heat intolerance Hematologic/Lymphatic Hematologic/Lymphatic: Reports none; Denies anemia, easy bleeding or easy bruising Allergic/Immunologic Allergic/Immunologic ED: Denies as per HPI, none, lip swelling, mouth swelling, throat swelling, tongue swelling or hives EXAM Physical Exam Const Vital Signs: 10/12/21 05:26 10/12/21 05:38 10/12/21 06:27 Temperature 98.1 F Temperature Source Oral Pulse Rate 96 84 Respiratory Rate 16 17 Respiratory Effort Normal Non-Labored Respiratory Pattern Normal Blood Pressure 119/102 H 178/89 H Blood Pressure Mean 107 118 Pulse Ox 96 97 Oxygen Delivery Method Room Air Room Air Positive well nourished and well developed General Appearance ED: well developed and NAD HEENT Reports TM's clear and moist mucous membranes normocephalic and atraumatic; Negative for trauma or tenderness Tympanic Membrane ED: Yes TM's clear Eyes PERRL and EOMs intact bilaterally General Eye ED: Negative for pale conjunctiva or scleral icterus Neck no lymphadenopathy, supple and no JVD General: Negative for tenderness Chest Wall inspection of chest normal and palpation of chest normal Chest: Negative for tenderness Resp normal respiratory effort and clear to auscultation bilaterally Effort and Inspection: Negative for respiratory distress or pain with movement Auscultation: Negative for rhonchi, wheezes or diminished lung sounds Cardio regular rate, regular rhythm, S1 normal heart sound, S2 normal heart sound and no murmurs Peripheral Pulses: pulses 2+ throughout GI normal to inspection, nondistended, normoactive bowel sounds, soft to palpation, non-tender, non-distended and no masses Back/Spine no CVA tenderness and no thoracic nor lumbar tenderness Extremity normal to inspection General Extremety ED: Negative for edema General Extremity: Negative for edema Neuro oriented x3, CN's II-XII intact bilaterally, no sensory deficits noted and gait normal Sensorium / Orientation: awake, alert, oriented to person, oriented to place and oriented to time Motor Exam: strength 5/5 throughout and strength abnormal Psych mental status grossly normal Skin no rashes or lesions noted and no wounds MDM MDM MDM Narrative Medical decision making narrative: IV line established. Patient given Zofran. Lab work-up unremarkable. Patient was positive for COVID-19. I will make referral for monoclonal antibody infusion. Patient advised to return if increasing shortness of breath or condition should worsen anyway. Lab Data Attestation: I reviewed the patient's lab results. Labs: Laboratory Results - last 24 hr 10/12/21 10/12/21 05:30 05:30 WBC 6.5 RBC 4.50 Hgb 13.8 Hct 39.9 MCV 88.7 MCH 30.7 MCHC 34.6 RDW Std Deviation 40.9 RDW Coeff of Omkar 12.5 Plt Count 164 MPV 11.6 Immature Gran % (Auto) 0.600 Neut % (Auto) 85.3 H Lymph % (Auto) 6.6 L Pickett % (Auto) 7.0 Eos % (Auto) 0.2 Baso % (Auto) 0.3 Absolute Neuts (auto) 5.6 Absolute Lymphs (auto) 0.43 L Nucleated RBC % 0 Differential Comment SCANNED Sodium 135 L Potassium 3.8 Chloride 103 Carbon Dioxide 22.0 Anion Gap 10 BUN 15 Creatinine 0.70 Estim Creat Clear Calc 41.45 Est GFR (MDRD) Af Amer 106 Est GFR (MDRD) Non-Af 88 BUN/Creatinine Ratio 21.6 H Glucose 153 H Calcium 9.3 Troponin I High Sens < 3 L EKG Initial EKG: Attestation: I personally reviewed and interpreted this EKG as follows: Comments: Sinus rhythm with a rate of 82 bpm with no acute ST segment changes Discharge Plan Triage Chief Complaint: General Illness ED Provider: Cristine Santiago Dx/Rx/DC Orders Clinical Impression: COVID-19 Instructions: Caring for Someone Who Has COVID-19 Prescriptions: New ondansetron [ondansetron] 4 MG tablet 4 mg PO Q8H PRN PRN (Reason: Nausea) Qty: 10 RF: 0 No Action rosuvastatin 10 mg tablet 10 mg PO DAILY RF: 0 omeprazole 20 mg capsule,delayed release(DR/EC) 20 mg PO DAILY RF: 0 awtnvons-kqxhcui-lytc-lutein Tablet 1 tab PO DAILY RF: 0 triamcinolone acetonide 0.1 % cream 1 applic TOPICAL DAILY PRN (Reason: Rash) RF: 0 clobetasol 0.05 % cream 1 applic TOPICAL DAILY RF: 0 clotrimazole 1 % cream 1 applic TOPICAL BID RF: 0 Alive Once Daily Women 50 Plus 800-100 mcg tablet 1 tab PO DAILY RF: 0 cholecalciferol (vitamin D3) [Vitamin D3] 25 mcg (1,000 unit) Capsule 25 mcg PO DAILY RF: 0 metoprolol succinate [Toprol XL] 25 mg tablet extended release 24 hr 25 mg PO DAILY Qty: 30 RF: 0 zinc 50 mg Capsule 50 mg PO DAILY RF: 0 Uribel 118-10-40.8-36 mg Capsule PO 4X/DAY RF: 0 turmeric 400 mg Capsule PO RF: 0 levothyroxine 50 mcg tablet See Rx Instructions PO .6x/week Qty: 78 RF: 3 Other Ambulatory Orders: COVID Outpatient Monoclonal Antibody Referral (Routine) Timeframe: 1 Day Facility: [facility] - Location: [facility] Ordered By: Dr. Cristine Santiago Primary Care Provider: Theresa Rodriguez Referrals: Theresa Rodriguez DO [Primary Care Provider] - Disposition Disposition: Home, Self Care
[2021-10-12] MEDS: Ondansetron 4 MG/2 ML Vial IV (05:47)
[2021-10-12] MEDS: 0.9% Normal Saline 1,000 ML 1000 ML IV (05:47)
[2021-10-12 05:49] LABS: Absolute Lymphocyte Count 0.43 X10^3/uL (0.83-4.51); Absolute Neutrophil Count 5.6 X10^3/uL (2.0-7.7); Basophil# 0.02 X10^3/uL; Basophil% 0.3 % (0-1); Eosinophil# 0.01 X10^3/uL; Eosinophils% 0.2 % (0-5); Hematocrit 39.9 % (37-47); Hemoglobin 13.8 g/dL (12.0-15.0); Lymphocyte # 0.43 X10^3/ul (0.83-4.51); Lymphocyte % 6.6 % (19-41); Mean Corp Hgb Conc 34.6 g/dL (32-36); Mean Corpuscular Hgb 30.7 pg (27.0-32.0); Mean Corpuscular Volume 88.7 fL (81-99); Mean Platelet Vol. 11.6 fl (6.2-12.0); Monocyte# 0.46 X10^3/uL; NRBC Flagged by Analyzer 0 % (0-5); Neutrophil # 5.58 X10^3/uL (2.7-7.7); Neutrophil % 85.3 % (47-70); POSITIVE DIFFERENTIAL YES; Platelet Count 164 K/mm3 (150-450); RBC Distribution Width CV 12.5 % (11.6-14.6); RBC Distribution Width SD 40.9 fl (35.1-43.9); White Blood Count 6.5 K/mm3 (4.4-11.0)
[2021-10-12 05:57] LABS: Differential Indicated SCAN CRITERIA MET
[2021-10-12 06:10] LABS: Anion Gap 10 (5-15); BUN 15 mg/dL (7-18); BUN/Creat Ratio 21.6 RATIO (10-20); Calcium,Total 9.3 mg/dL (8.5-10.1); Chloride 103 mmol/L (98-107); EST Glomerular Filtration Rate 88 mL/min (>60); Est Glom Filt Rate - Afr Amer 106 mL/min (>60); Estimated Creatinine Clearance 41.45 ml/min; Glucose 153 mg/dL (74-106); Potassium 3.8 mmol/L (3.5-5.1); Sodium Level 135 mmol/L (136-145); Troponin-I HS < 3 pg/mL (3.0-54.0)
[2021-10-12 06:27] VITALS: BP 178/89; PULSE 84; RESP 17; O2SAT 97
[2021-10-12 06:44] LABS: Mucous, Urine 0 SEEN /hpf (<or=2+); Red Blood Cells-Urine 0 SEEN /hpf (0-5)
[2021-10-12 06:47] LABS: Differential Comment SCANNED
[2021-10-12 06:50] LABS: Color, Urine Yellow (Yellow); Glucose, Dipstick Normal (Normal); Leukocyte Esterase-Dipstick Negative /ul (Negative); Nitrite-Dipstick Negative (Negative); Occult Blood-Urine Negative /ul (Negative); Protein-Dipstick Negative (Negative); Urine Bilirubin Dipstick Negative (Negative); Urine Clarity Clear (Clear); Urine Urobilinogen Normal (Normal)
[2021-10-12] MEDS: Acetaminophen 325 MG Tablet 650 MG PO (07:01)
[2021-10-12 07:02] LABS: Ketone-Dipstick 150 mg/dl (Negative)
[2021-10-12 07:08] LABS: Bacteria RARE /hpf (None Seen); Squamous Epithelial Cells - UA 0-5 SEEN /hpf (5-10); White Blood Cells 0-5 SEEN /hpf (0-5)
[2021-10-12 07:14] VITALS: BP 164/79; PULSE 79; RESP 18; O2SAT 97
== END 2021-10-12 07:15 | disposition home or self-care (01) ==
PROVIDERS: Emergency Provider Emergency Medicine; PCP Internal Medicine; Visit Provider Emergency Medicine
DX: U07.1 COVID-19 (principal); I10 Essential (primary) hypertension; Z79.899 Other long term (current) drug therapy
CPT/HCPCS: 80048; 81001; 84484; 85025; 87428; 93005; 96361; 96374; 99284; J7030; J2405

== ENCOUNTER 2021-10-30 10:32 | Outpatient (RCR) | payer OTHER, SELFPAY | END 2021-11-08 23:59 | LOC: NS 10:32 | PROVIDERS: PCP Internal Medicine; Referring Provider Internal Medicine; Visit Provider Internal Medicine | DX: Z71.3 Dietary counseling and surveillance (principal); R73.9 Hyperglycemia, unspecified; E66.9 Obesity, unspecified; Z68.34 Body mass index [BMI] 34.0-34.9, adult | CPT/HCPCS: 97802 ==

== ENCOUNTER 2021-11-20 11:02 | Outpatient (RCR) | payer OTHER, SELFPAY | END 2021-12-09 23:59 | LOC: NS 11:02 | PROVIDERS: PCP Internal Medicine; Referring Provider Internal Medicine; Visit Provider Internal Medicine | DX: Z71.3 Dietary counseling and surveillance (principal); E66.9 Obesity, unspecified; Z68.34 Body mass index [BMI] 34.0-34.9, adult; R73.9 Hyperglycemia, unspecified | CPT/HCPCS: 97803 ==

== ENCOUNTER → 2021-11-27 | Outpatient (CLI) | payer OTHER, SELFPAY ==
--- NOTE | 2021-11-27 14:32 | BI_ITS ---
MAMMOGRAPHY - UNILATERAL SCREENING: LEFT BREAST REASON FOR EXAM: Female, 71 years old. Routine annual screening examination (unilateral). PERTINENT HISTORY: Personal history of breast cancer. Prior right mastectomy. Grandmother with breast cancer. TECHNIQUE: Digital unilateral breast sammy (3D mammographic acquisition) in the CC and MLO projections. 2-D mediolateral oblique (MLO) and craniocaudad (CC) views of both breasts were obtained. CAD: Full Field Digital Mammography with Computer Added Detection was performed. COMPARISON: Comparison is made with prior examination dated 11/22/2020 and 09/29/2019. FINDINGS: Breast Composition: There are scattered areas of fibroglandular density. There are no dominant masses or suspicious calcifications. No other significant abnormalities are identified. There has been no significant change since the prior study. BI/SCREEN MAMM (CAD) W/SAMMY UNI L IMPRESSION: Stable unilateral screening mammogram. Yearly follow-up mammogram recommended. (A) ASSESSMENT CATEGORY: BIRADS Category 1: Negative. A letter regarding these results will be sent to the patient by the facility within 30 days. Approximately 10% of breast cancers are not detected by mammography. A normal mammogram should not delay biopsy of a clinically suspicious abnormality. [id number] Electronically Signed: Bartolo Buck MD at 15:11 EDT ,
== END | disposition home or self-care (01) ==
LOC: OPBI 14:30
PROVIDERS: PCP Internal Medicine; Referring Provider Internal Medicine Medical Oncology; Visit Provider Internal Medicine Medical Oncology
DX: Z12.31 Encounter for screening mammogram for malignant neoplasm of breast (principal); Z90.11 Acquired absence of right breast and nipple; Z80.3 Family history of malignant neoplasm of breast; Z85.3 Personal history of malignant neoplasm of breast
CPT/HCPCS: 77063; 77067

== ENCOUNTER 2022-01-30 20:47 | Emergency (ER) | payer OTHER, SELFPAY ==
[2022-01-30 20:54] VITALS: BP 187/82; PULSE 91; RESP 18; TEMP 36.6; O2SAT 97; BMI 29.9
--- NOTE | 2022-01-30 21:42 | RAD_ITS ---
EXAM: XR RIGHT SHOULDER COMPLETE, 2 OR MORE VIEWS CLINICAL INDICATION: Injury/Pain TECHNIQUE: Two or more views of the right shoulder. This report was created using [employer] report generation technology. COMPARISON: None. FINDINGS: BONES/JOINTS: Mild to moderate degenerative changes of the acromioclavicular joint. No subacromial enthesophyte. Type II acromion with curved undersurface. No acute or healing fracture or malalignment. Degenerative changes of the spine and diffuse osteopenia. Rightward curvature of the thoracic spine. No sclerotic or destructive changes observed. SOFT TISSUES: Soft tissues are normal. No soft tissue swelling or gas. No radiopaque foreign body. LUNGS AND PLEURAL SPACES: Surgical clips project over the lower aspect of the right hemithorax. RAD/Shoulder min 2 Views IMPRESSION: No acute or healing fracture or malalignment. Electronically Signed: aMtthew Roldan MD at 22:45 EDT ,
--- NOTE | 2022-01-30 21:42 | CT_ITS ---
EXAM: CT CERVICAL SPINE WITHOUT INTRAVENOUS CONTRAST CLINICAL INDICATION: Injury/Pain TECHNIQUE: Helically acquired images were obtained of the cervical spine without intravenous contrast. 2D reformatted images were reviewed. CTDIvol = ( 18.65 ) mGy, DLP = ( 1241.92 ) mGycm This CT exam was performed using one or more of the following dose reduction techniques: automated exposure control, adjustment of the mA and/or kV according to patient size, and/or use of iterative reconstruction technique. This report was created using [employer] report [employer] technology. COMPARISON: None. FINDINGS: VERTEBRAE: No evidence of acute or healing fracture or malalignment. No traumatic subluxation. No discrete lytic or blastic abnormality. Normal craniocervical junction and cervicothoracic junction. DISCS/SPINAL CANAL/NEURAL FORAMINA: Multilevel spine degenerative changes. No critical central canal stenosis or apical pneumothorax. SOFT TISSUES: Unremarkable. No prevertebral soft tissue swelling. VASCULATURE: Atherosclerotic calcifications of the internal carotid arteries of the neck. LYMPH NODES: Unremarkable. No cervical adenopathy. LUNG APICES: Unremarkable as visualized. Clear. Nuchal ligamentous ossifications at C4 and C5 levels. CT/Spine Cervical without Contras IMPRESSION: No evidence of acute or healing fracture or malalignment. Electronically Signed: Matthew Roldan MD at 22:36 EDT ,
--- NOTE | 2022-01-30 21:42 | RAD_ITS ---
EXAM: XR THORACIC SPINE, 3 VIEWS CLINICAL INDICATION: Injury/Pain TECHNIQUE: Frontal, lateral and swimmer''s views of the thoracic spine. This report was created using [employer] report generation technology. COMPARISON: None. FINDINGS: Right vertebral curvature of the thoracic spine with leftward curvature of the thoracolumbar spine. No acute or healing fracture or malalignment. No unusual lytic or sclerotic lesions of bone. Degenerative changes of the spine. Diffuse osteopenia. Stool and gas throughout the colon colon. No bowel obstruction. Visualized lungs are clear. Soft tissues are otherwise unremarkable. RAD/Thoracic Spine 3 Views IMPRESSION: S-shaped curvature of the spine with multilevel degenerative changes; no acute or healing fracture or malalignment. Electronically Signed: Matthew Roldan MD at 22:43 EDT ,
--- NOTE | 2022-01-30 21:42 | CT_ITS ---
EXAM: CT HEAD WITHOUT INTRAVENOUS CONTRAST CLINICAL INDICATION: Injury/Pain TECHNIQUE: Multiple axial images were obtained of the head without intravenous contrast. CTDIvol = ( 44.99 ) mGy, DLP = ( 863.60 ) mGycm This CT exam was performed using one or more of the following dose reduction techniques: automated exposure control, adjustment of the mA and/or kV according to patient size, and/or use of iterative reconstruction technique. This report was created using [employer] report generation technology. COMPARISON: None. FINDINGS: BRAIN AND EXTRA-AXIAL SPACES: Chronic ischemic small vessel white matter disease and diffuse parenchymal atrophy. No intra- or extra-axial hemorrhage. No evidence of acute infarct. No intracranial mass or mass effect. There is preservation of the snyder/white matter interface. Posterior fossa structures are unremarkable. Ventricles are appropriate for age. No hydrocephalus. Basal cisterns are patent. Atherosclerotic calcific agents of the carotid siphons. BONES/JOINTS: Unremarkable. No discrete lytic or blastic abnormalities. SINUSES: Unremarkable as visualized. Clear. MASTOID AIR CELLS: Unremarkable. Clear. ORBITS: Visualized globes, extraocular muscles, optic nerves and retrobulbar fat appear unremarkable. CT/Brain/Head without Contrast IMPRESSION: No acute intracranial pathology. Electronically Signed: Matthew Roldan MD at 22:27 EDT ,
--- NOTE | 2022-01-30 22:24 | RAD_ITS ---
EXAM: XR LUMBOSACRAL SPINE, 2 OR 3 VIEWS CLINICAL INDICATION: Injury/Pain TECHNIQUE: Frontal and lateral views of the lumbar spine and sacrum. This report was created using [employer] report generation technology. COMPARISON: None. FINDINGS: Leftward curvature of the thoracolumbar spine. No acute or healing fracture or malalignment. No unusual lytic or sclerotic lesions of bone. Degenerative changes of the spine. Diffuse osteopenia. Stool and gas throughout the colon colon. No bowel obstruction. Lung bases are clear. Atherosclerotic calcifications of the nonaneurysmal aorta. Soft tissues are otherwise unremarkable. RAD/Lumbar Spine 2 or 3 Views IMPRESSION: Degenerative changes of the spine without acute or healing fracture or malalignment. Electronically Signed: Matthew Roldan MD at 22:42 EDT ,
[2022-01-30 23:03] VITALS: RESP 17
--- NOTE | 2022-01-30 23:17 | ED.VIS.FALL ---
HPI HPI - Fall History of Present Illness Chief Complaint: Fall Informant: patient Occured/Mechanism Occurred: Today Mechanism/Context: Yes slip Narrative: Patient presents after a fall that occurred today. Patient states she slipped and fell down approximately 8-10 steps. Patient denies any loss of consciousness. Patient complains of pain in her neck, back, and right shoulder. Patient states she was having some tingling initially but this has resolved. Patient states her pain is worse with movement. Patient states it is better with rest. Patient states she was able to get up after the fall and ambulate to the phone to call for EMS. Fall down steps #: 8-10 Pain/Injury Location: Neck, back, right shoulder Pain Location: neck, back and upper extremity Quality of Pain: Dull Worsened by: Movement Relieved by: Rest Associated Symptoms Associated Symptoms: Positive for Parasthesias; Negative for Weakness, Loss of function, Inability to ambulate, Loss of consciousness or Amnesia PFSH PFS Medical History Anxiety Cellulitis of left foot Esophageal dyskinesia Esophageal spasm Genital herpes Vonda's disease Heart disease History of breast cancer History of skin cancer Hypertension IBS (irritable bowel syndrome) MVP (mitral valve prolapse) Osteoarthritis Osteopenia Osteopenia determined by x-ray Palpitations Peptic ulcer Psoriasis Right rotator cuff tear Rosacea Thyromegaly Uninodular goiter Home Medications clobetasol 0.05 % topical cream 1 applic topical DAILY 10/14/19 [History Last Taken Unknown] gzxhicvo-uqwlpak-ioex-lutein tablet 1 tab PO DAILY 10/14/19 [History Last Taken Unknown] omeprazole 20 mg capsule,delayed release 20 mg PO DAILY 10/14/19 [History Last Taken Unknown] rosuvastatin 10 mg tablet 10 mg PO DAILY 10/14/19 [History Last Taken Unknown] triamcinolone acetonide 0.1 % topical cream 1 applic topical DAILY PRN Rash 10/14/19 [History Last Taken Unknown] clotrimazole 1 % topical cream 1 applic topical BID 11/26/19 [History Last Taken Unknown] cholecalciferol (vitamin D3) 25 mcg (1,000 unit) capsule (Vitamin D3) 25 mcg PO DAILY 12/07/20 [History Last Taken Unknown] metoprolol succinate 25 mg tablet,extended release 24 hr (Toprol XL) 25 mg PO DAILY #30 tabs 12/07/20 [Rx Last Taken Unknown] levothyroxine 50 mcg tablet See Rx Instructions PO .6x/week #78 tabs 03/14/21 [Rx Last Taken Unknown] multivit,mineral-folic acid 800 mcg-vit K 100 mcg-herbal no.289 tablet (Alive Once Daily Women 50 Plus) 1 tab PO DAILY 05/29/21 [History Last Taken Unknown] methenam 118 mg-m.blue 10 mg-s.phos 40.8 mg-p.salic 36 mg-hyos capsule (Uribel) cap PO 4X/DAY 10/12/21 [History Last Taken Unknown] ondansetron 4 mg disintegrating tablet 4 mg PO Q8H PRN PRN Nausea #10 tabs 10/12/21 [Rx Last Taken Unknown] turmeric 400 mg capsule mg PO 10/12/21 [History Last Taken Unknown] zinc 50 mg capsule 50 mg PO DAILY 10/12/21 [History Last Taken Unknown] coenzyme Q10 200 mg capsule (Co Q-10) 200 mg PO DAILY 12/04/21 [History Last Taken Unknown] fluticasone propionate 50 mcg/actuation nasal spray,suspension gm intranasal 12/04/21 [History Last Taken Unknown] lactobacillus combination no.9 4 billion cell capsule (Adult 50 Plus Probiotic) 4,000 mmu cells PO DAILY 12/04/21 [History Last Taken Unknown] psyllium husk 0.52 gram capsule (Daily Fiber) 0.52 g PO DAILY 12/04/21 [History Last Taken Unknown] Allergy/AdvReac Type Severity Reaction Status Date / Time adhesive Allergy Mild Rash Verified 01/30/22 20:58 ketorolac Allergy Unknown Verified 01/30/22 20:58 Opioids - Morphine Analogues Allergy Unknown Verified 01/30/22 20:58 pseudoephedrine Allergy Unknown Verified 01/30/22 20:58 [From Sudafed] celecoxib [From Celebrex] AdvReac Mild history of Verified 01/30/22 20:58 ulcer cyclobenzaprine AdvReac Mild mental Verified 01/30/22 20:58 [From Flexeril] status change duloxetine [From Cymbalta] AdvReac Mild mental Verified 01/30/22 20:58 status change escitalopram [From Lexapro] AdvReac Mild mental Verified 01/30/22 20:58 status change lorazepam [From Ativan] AdvReac Mild mental Verified 01/30/22 20:58 status change morphine AdvReac Mild mental Verified 01/30/22 20:58 status change tramadol AdvReac Mild mental Verified 01/30/22 20:58 status change albuterol AdvReac chest pain Verified 01/30/22 20:58 cephalexin AdvReac Unknown Verified 01/30/22 20:58 pseudoephedrine HCl AdvReac Other Verified 01/30/22 20:58 [From Sudafed] sulfamethoxazole AdvReac mental Verified 01/30/22 20:58 [From Bactrim] status change trimethoprim [From Bactrim] AdvReac mental Verified 01/30/22 20:58 status change Family History Father Prostate cancer Mother Heart disease Surgical History H/O mastectomy H/O umbilical hernia repair History of hysterectomy History of tonsillectomy Hx of cholecystectomy Social History Smoking Status: Never smoker ROS ROS ED Constitutional Constitutional ED: Denies chills or fever(s) Eyes Eyes: Denies blurry vision or change in vision ENT ENT ED: Denies rhinorrhea or sore throat Cardiovascular Cardiovascular: Reports chest pain and palpitations Respiratory/Chest Respiratory/Chest: Denies cough or dyspnea Gastrointestinal Gastrointestinal: Denies nausea or vomiting Genitourinary Genitourinary ED: Denies dysuria or hematuria Musculoskeletal Musculoskeletal: Reports back pain and neck pain Integumentary Denies abscess or rash Neurologic Neurologic: Denies headache(s) or weakness Allergic/Immunologic Allergic/Immunologic ED: Denies mouth swelling or urticaria EXAM Physical Exam Const Vital Signs: 01/30/22 20:54 01/30/22 21:02 01/30/22 23:03 Temperature 97.9 F Temperature Source Temporal Pulse Rate 91 Respiratory Rate 18 17 Respiratory Effort Normal Respiratory Depth Normal Respiratory Pattern Normal Blood Pressure 187/82 H Blood Pressure Mean 117 Pulse Ox 97 Oxygen Delivery Method Room Air Room Air Room Air Positive well nourished and well developed General Appearance ED: well developed and NAD HEENT Reports normocephalic atraumatic Eyes PERRL and EOMs intact bilaterally Neck Neck Narrative: There is tenderness over the cervical paraspinal muscles bilaterally. There is no midline tenderness. There is no bony crepitance or step-off. Range of motion was slightly limited in all motions of the cervical spine secondary to pain. Chest Wall inspection of chest normal Resp normal respiratory effort and clear to auscultation bilaterally Cardio regular rate and regular rhythm GI non-tender and non-distended Palpation: soft Back/Spine Back/Spine Narrative: There is tenderness over the thoracic and lumbar spine and paraspinal muscles. There is no bony crepitance or step-off. Range of motion was limited in all motions of the thoracic and lumbar spine secondary to pain. Thoracic Spine / Upper Back: ROM limited and thoracic spinal tenderness Lumbar Spine / Lower Back: lumbar spinal tenderness and straight leg raise negative bilaterally Extremity Extremity Narrative: There is mild tenderness over the right shoulder area. There is no obvious deformity. Range of motion was limited in all motions of the right shoulder secondary to pain. Neuro oriented x3, CN's II-XII intact bilaterally, moves all extremities, no focal motor deficits and no sensory deficits noted [place] Coma Scale: document GCS findings Spontaneous Obeys Commands Oriented 15 Sensorium / Orientation: alert Motor Exam: strength 5/5 throughout Psych mental status grossly normal and thought process normal MDM MDM MDM Narrative Medical decision making narrative: CT scan of the brain was obtained. There is no acute intracranial abnormality. This was interpreted by the radiologist and reviewed by myself. CT scan of the cervical spine was obtained. There is no acute fracture or spondylolisthesis. There are some degenerative changes noted. This was interpreted by the radiologist and reviewed by myself. X-rays of the right shoulder were obtained. There are 2 views. On my interpretation, there is no acute fracture or dislocation. Radiologist also interpreted the x-rays and agrees. X-rays of the thoracic spine were obtained. There are 3 views. On my interpretation, there are some degenerative changes. There is no acute fracture or dislocation. There is scoliosis noted. Radiologist also interpreted the x-rays and agrees. X-rays of the lumbar spine were obtained. There are 3 views. On my interpretation, there is no acute fracture or spondylolisthesis. There are some degenerative changes noted. Radiologist also interpreted the x-rays and agrees. Patient was advised of her findings. Patient was instructed use ice to the area. Patient was instructed to continue using Tylenol as needed for pain. Patient was instructed to follow-up with her primary care physician in 5 to 7 days. Patient understood and was agreeable with the plan. All questions were answered. Radiography Diagnostic Testing: Clinical Impression(s) from Imaging Studies Brain CT 01/30/22 21:42 IMPRESSION: No acute intracranial pathology. Electronically Signed: Matthew Roldan MD at 22:27 EDT Reading Location ID and State: [address] / [employer] , Service support , Cervical Spine CT 01/30/22 21:42 IMPRESSION: No evidence of acute or healing fracture or malalignment. Electronically Signed: Matthew Roldan MD at 22:36 EDT Reading Location ID and State: [address] / [employer] [facility] , Service support , Shoulder X-Ray 01/30/22 21:42 IMPRESSION: No acute or healing fracture or malalignment. Electronically Signed: Matthew Roldan MD at 22:45 EDT Reading Location ID and State: [address] / [employer] [facility] , Service support , Thoracic Spine X-Ray 01/30/22 21:42 IMPRESSION: S-shaped curvature of the spine with multilevel degenerative changes; no acute or healing fracture or malalignment. Electronically Signed: Matthew Roldan MD at 22:43 EDT Reading Location ID and State: [address] / [employer] [facility] , Service support , Lumbar Spine X-Ray 01/30/22 22:24 IMPRESSION: Degenerative changes of the spine without acute or healing fracture or malalignment. Electronically Signed: Matthew Roldan MD at 22:42 EDT Reading Location ID and State: [employer] [facility] , Service support , Discharge Plan Triage Chief Complaint: Fall ED Provider: Darrion Albrecht Dx/Rx/DC Orders Clinical Impression: Acute cervical myofascial strain, Acute thoracic myofascial strain, Acute lumbosacral myofascial strain, Contusion of right shoulder, initial encounter Instructions: ED Back Sprain/Strain, ED Contusion, Upper Extremity, ED Neck Sprain or Strain Prescriptions: No Action rosuvastatin 10 mg tablet 10 mg PO DAILY omeprazole 20 mg capsule,delayed release(DR/EC) 20 mg PO DAILY chywbyox-xjsmata-uydu-lutein Tablet 1 tab PO DAILY triamcinolone acetonide 0.1 % cream 1 applic TOPICAL DAILY PRN (Reason: Rash) clobetasol 0.05 % cream 1 applic TOPICAL DAILY clotrimazole 1 % cream 1 applic TOPICAL BID Alive Once Daily Women 50 Plus 800-100 mcg tablet 1 tab PO DAILY fluticasone propionate 50 mcg/actuation spray,suspension intranasal Label Comments: [place] 2 spray into bothVnostrils once a day coenzyme Q10 [Co Q-10] 200 mg capsule 200 mg PO DAILY Adult 50 Plus Probiotic 4 billion cell capsule 4,000 mmu cells PO DAILY Rx Instructions: administer with a meal psyllium husk [Daily Fiber] 0.52 gram capsule 0.52 g PO DAILY cholecalciferol (vitamin D3) [Vitamin D3] 25 mcg (1,000 unit) Capsule 25 mcg PO DAILY metoprolol succinate [Toprol XL] 25 mg tablet extended release 24 hr 25 mg PO DAILY Qty: 30 0RF zinc 50 mg Capsule 50 mg PO DAILY Uribel 118-10-40.8-36 mg Capsule PO 4X/DAY turmeric 400 mg Capsule PO ondansetron [ondansetron] 4 MG tablet 4 mg PO Q8H PRN PRN (Reason: Nausea) Qty: 10 0RF levothyroxine 50 mcg tablet See Rx Instructions PO .6x/week Qty: 78 3RF Rx Instructions: Take one tablet Friday- Friday Primary Care Provider: Theresa Rodriguez Referrals: Theresa Rodriguez DO [Primary Care Provider] - 5-7 Days Disposition Disposition: Home, Self Care
== END 2022-01-30 23:41 | disposition home or self-care (01) ==
PROVIDERS: Emergency Provider Emergency Medicine; PCP Internal Medicine; Visit Provider Emergency Medicine
DX: S39.012A Strain of muscle, fascia and tendon of lower back, initial encounter (principal); S16.1XXA Strain of muscle, fascia and tendon at neck level, initial encounter; I10 Essential (primary) hypertension; S29.019A Strain of muscle and tendon of unspecified wall of thorax, initial encounter; S40.011A Contusion of right shoulder, initial encounter; W10.9XXA Fall (on) (from) unspecified stairs and steps, initial encounter; M41.9 Scoliosis, unspecified; Z85.3 Personal history of malignant neoplasm of breast
CPT/HCPCS: 70450; 72072; 72100; 72125; 73030; 99284

== ENCOUNTER → 2022-02-08 | Outpatient (CLI) | payer OTHER, SELFPAY ==
--- NOTE | 2022-02-08 15:54 | CT_ITS ---
STUDY: CT ABDOMEN AND PELVIS WITH CONTRAST REASON FOR EXAM: Female, 71 years old. Bloated abdomen RADIATION DOSAGE (If Supplied By Facility): CTDIvol = ( 15.75 ) mGy, DLP = ( 1051.76 ) mGycm TECHNIQUE: Transaxial images were obtained from the dome of the diaphragm to the symphysis pubis with oral contrast. 100mL Isovue-300 was administered. Sagittal and coronal images were reconstructed. Individualized dose optimization techniques were used for this CT. COMPARISON: June 16, 2018. FINDINGS: The visualized lung bases are unremarkable. The visualized portions of the heart are within normal limits. Normal liver. Normal gallbladder and extrahepatic biliary system. Normal spleen. Normal pancreas. Normal bilateral adrenal glands. Normal right kidney. Normal left kidney. There is wall thickening of the stomach. Normal small intestine. There are a few colonic diverticula consistent with diverticulosis. The appendix is visualized and appears normal. There is diffuse atherosclerotic calcification of the abdominal aorta, without a demonstrated aneurysm. Normal inferior vena cava. Normal retroperitoneum. Normal urinary bladder. There is absence of the uterus consistent with a prior hysterectomy. There is no free fluid in the abdomen or pelvis. There is postoperative change of the right breast and posterior chest wall. There is lumbar levoscoliosis with degenerative change of the spine. CT/Abdomen/Pelvis WITH Contrast IMPRESSION: Wall thickening of the stomach suggesting gastritis versus ulcer disease. Colonic diverticulosis. No obstruction or abscess. Electronically Signed: Edouard Matthews MD at 8:59 EDT ,
== END | disposition home or self-care (01) ==
LOC: CT 15:50
PROVIDERS: PCP Internal Medicine; Referring Provider Internal Medicine; Visit Provider Internal Medicine
DX: R14.0 Abdominal distension (gaseous) (principal)
CPT/HCPCS: 74177; Q9967

== ENCOUNTER → 2022-03-27 | Outpatient (CLI) | payer OTHER, SELFPAY ==
[2022-03-29 20:29] LABS: Gastrin, Serum 193 pg/mL (0-115)
== END | disposition home or self-care (01) ==
LOC: LAB 10:49
PROVIDERS: PCP Internal Medicine; Referring Provider Nurse Practitioner Adult Health; Visit Provider Nurse Practitioner Adult Health
DX: K31.89 Other diseases of stomach and duodenum (principal)
CPT/HCPCS: 36415; 82941

== ENCOUNTER → 2022-04-02 | Outpatient (CLI) | payer OTHER, SELFPAY ==
[2022-04-02 18:18] LABS: Vitamin D,25 Hydroxy 67.1 ng/mL
[2022-04-02 18:25] LABS: Anion Gap 7 (5-15); BUN 16 mg/dL (7-18); BUN/Creat Ratio 20.1 RATIO (10-20); Calcium,Total 9.2 mg/dL (8.5-10.1); Chloride 106 mmol/L (98-107); EST Glomerular Filtration Rate 75 mL/min (>60); Est Glom Filt Rate - Afr Amer 91 mL/min (>60); Glucose 101 mg/dL (74-106); Potassium 3.9 mmol/L (3.5-5.1); Sodium Level 141 mmol/L (136-145); Thyroid Stim Hormone (TSH) 0.89 uIU/mL (0.358-3.74)
== END | disposition home or self-care (01) ==
LOC: LAB 16:53
PROVIDERS: PCP Internal Medicine; Visit Provider Internal Medicine Endocrinology, Diabetes & Metabolism
DX: E55.9 Vitamin D deficiency, unspecified (principal); E04.2 Nontoxic multinodular goiter; E03.8 Other specified hypothyroidism; E06.3 Autoimmune thyroiditis; M85.80 Other specified disorders of bone density and structure, unspecified site
CPT/HCPCS: 36415; 80048; 82306; 84439; 84443

== ENCOUNTER 2022-04-03 15:30 | Outpatient (RCR) | payer OTHER, SELFPAY ==
--- NOTE | 2022-02-06 12:42 | HP.PTEVAL ---
Patient's Visit Information TERESE BUTLER is a 71 year old F referred to Physical Therapy by Dr. Theresa Rodriguez DO with a diagnosis of Fall Down Stairs. Date of Evaluation: 02/06/22 Physical Therapist: Jennifer Shah DPT - Visit Plan Frequency: 2x /Week Duration: 4 Weeks Plan: Focus on ROM and strength/stabilization of the scap and core. HEP Given IE: Wall Wash flexion and abduction - Subjective Patient reports that she fell down about 10 stairs- a week ago. She had latissimus dorsi reconstruction in 1998 due to her breast cancer reconstruction. She went to the hospital that did x-rays. She was having severe muscle spasms in that muscle. It stopped the day before yesterday. The discomfort in the right side feels the same way it did after surgery. She has swelling and feels that she is tilted down on her right and can't keep a shirt on. She is sleeping on her recliner. Pain is located along the bra line and radiates around the side and up to the shoulder blade. She reports its painful and almost like she is full of fluid and achy. When she turns her head she has pain and light headedness. CT abdomen and pelvis. Worst: 10/10 Agg: raise her arm, lean back in her recliner. Eases: sitting in a chair upright. Her brain is a little sluggish but her MD is aware. No N/T in the right hand. Does have lightheadedness but no DEGROOT- is on a muscle relaxer. PMHx/Meds: same as when at [facility]- with the exception of the muscle relaxer. - Objective Posture: FH, RS- guarding of the right UE- unable to correct due to pain. ROM: Cervical: WFL in all planes with pain, Shoulder: AROM: Flexion: 90 degrees, Abd: 90 degrees, IR/ER: WFL, AAROM: Flexion: 160 degrees, Abd: to ear. Strength: 4/5 isometric throughout UE. Palpation: tender along medial scapula and into the infraspinatus and into the lats - Balance/Special Test Scores Quick DASH Score: 70.4525 - Goals Goal 1:: Patient will be I with HEP and progression Goal Time Frame: 4-6 Weeks Goal 2:: Patient will demo full AROM of the right shoulder Goal Time Frame: 4-6 Weeks Goal 3:: Patient will maintain proper posture t/o tx session to demo increased scap s/s Goal Time Frame: 4-6 Weeks Goal 4:: Patient will report 80% improvement Goal Time Frame: 4-6 Weeks - Rehabilitation Potential Physical Therapy Diagnosis: Patient presents with hypomobility- she has decreased UE and scapular strength/stabilization and muscular endurance leading to poor posture and increased pain with ADL's. Rehabilitation Potential: Good - Anticipated Interventions Patient/Client Instruction: Educate patient on: Benefits of Fitness Program Therapeutic Exercise to Include: Strength training, Endurance training, Balance training, Coordination, Agility training, Body mechanics, Postural training, Flexibilty training, Gait and locomotor training, Neuromotor development, Dynamic Lumbar Stabilization, Scapular Strength/Stabilization TENS: No Cryotherapy (ice pack, ice massage): Yes Thermo therapy (hot pack): Yes Ultrasound (thermal/non thermal): No Thank you for the opportunity to evaluate your patient. For Medicare and Medicare HMO plans, please review the plan of care and approve it. It will need to be FAXED BACK to us at [phone] for Medicare purposes. For Medicare only, by signing this I certify the plan of care. Please let me know if there are questions or concerns regarding this plan of care. Physician Signature: Date:
--- NOTE | 2022-03-06 16:30 | HP.PTREVAL_ITS ---
Dr. Theresa Rodriguez, DO, It has been my pleasure to treat TERESE Eric BUTLER over the last 8 visits for Fall Down Stairs. Please see the progress note below for an update on the physical therapy plan of care! Subjective: Patient reports that she feels that she is getting better. She has more movement and is able to do more around her house. She does have some buzzing also called tingling in her muscles of her spine as she does more. She has had this before and it has gone away she feels its from working the muscles. Patient would like to continue PT Objective/Function: Posture: fair throughout. ROM: Cervical: WFL in all planes with pain, Shoulder: AROM: WFL in all planes. Strength: 4+/5 isometric throughout UE. Palpation: tender along medial scapula and into the infraspinatus and into the lats Plan Plan: 03/06: Focus on Core and scapular s/s. Focus on ROM and strength/stabil ization of the scap and core. HEP Given IE: Wall Wash flexion and abduction Balance/Gait/Functional tests - Balance/Special Test Scores Quick DASH Score: 34.0900 Goals Goal 1:: Patient will be I with HEP and progression Goal Time Frame: 4-6 Weeks Goal 2:: Patient will demo full AROM of the right shoulder Goal Time Frame: 4-6 Weeks Goal 3:: Patient will maintain proper posture t/o tx session to demo increased scap s/s Goal Time Frame: 4-6 Weeks Goal 4:: Patient will report 80% improvement Goal Time Frame: 4-6 Weeks Anticipated Interventions Patient/Client Instruction: Educate patient on: Benefits of Fitness Program Therapeutic Exercise to Include: Strength training, Endurance training, Balance training, Coordination, Agility training, Body mechanics, Postural training, Flexibilty training, Gait and locomotor training, Neuromotor development, Dynamic Lumbar Stabilization, Scapular Strength/Stabilization TENS: No Cryotherapy (ice pack, ice massage): Yes Thermo therapy (hot pack): Yes Ultrasound (thermal/non thermal): No Please do not hesitate to contact me at [phone] by phone or if you have questions or concerns regarding this new plan of care! Sincerely, Jennifer Shah DPT
--- NOTE | 2022-04-03 16:58 | HP.PTDCSUM ---
It has been my pleasure to treat TERESE BUTLER referred by Dr. Theresa Rodriguez DO, with the diagnosis of Fall Down Stairs for a total of 14 visit(s). Discharge Date: Please see the following information for a summary of their discharge status. Subjective: Patient reports that she is better- she no longer has tightness in her rib area. she has some buzzing in her whole spine that come and goes- she feels that she is ready to be done with PT and address her spine through massage and chiro R side Pain Intensity (Out of 10): 3 % Improvement: 80 Objective/Function: Posture: fair throughout. ROM: Cervical: WFL in all planes with pain, Shoulder: AROM: WFL in all planes. Strength: 4+/5 isometric throughout UE. Palpation: not tender to touch Goal 1:: Patient will be I with HEP and progression Goal Progress: Goal Met Goal 2:: Patient will demo full AROM of the right shoulder Goal Progress: Goal Met Goal 3:: Patient will maintain proper posture t/o tx session to demo increased scap s/s Goal Progress: Goal Met Goal 4:: Patient will report 80% improvement Goal Progress: Progressing Plan: 04/03/22: Discharge to I HEP. 03/06: Focus on Core and scapular s/s. Focus on ROM and strength/stabilization of the scap and core. HEP Given IE: Wall Wash flexion and abduction If there are questions or concerns regarding this patient's physical therapy, please feel free to call me at [phone]. Thank you for the referral of this patient. Sincerely, Jennifer Shah, DANIELAT Balance/Gait/Functional tests - Balance/Special Test Scores Quick DASH Score: 31.8175
== END 2022-04-03 19:00 | disposition home or self-care (01) ==
LOC: PT 15:30
PROVIDERS: PCP Internal Medicine; Referring Provider Internal Medicine; Visit Provider Internal Medicine
DX: T14.8XXD Other injury of unspecified body region, subsequent encounter (principal); W10.9XXD Fall (on) (from) unspecified stairs and steps, subsequent encounter; M62.838 Other muscle spasm
CPT/HCPCS: 97014; 97110; 97162; 97164; G0283

== ENCOUNTER → 2022-04-10 | Outpatient (CLI) | payer OTHER, SELFPAY ==
--- NOTE | 2022-04-10 14:23 | US_ITS ---
STUDY: THYROID ULTRASOUND REASON FOR EXAM: Female, 72 years old. Thyroid enlargement. Bilateral thyroid nodules. TECHNIQUE: Ultrasound evaluation of the thyroid was performed with real-time and static snyder-scale imaging. COMPARISON: Comparison is made with prior examination dated 01/27/2021. FINDINGS: RIGHT LOBE: The right lobe of the thyroid gland is enlarged and measures 5.5 cm x 2.4 cm x 2.8 cm. There is a heterogeneous echotexture. Once again, multiple hypoechoic solid nodules are seen. The largest nodule measures 1.7 cm x 1.5 cm x 1.2 cm this is in the lower pole and is of slightly increased density. There is basically no change as compared to prior study. LEFT LOBE: The left lobe of the thyroid gland is enlarged and measures 5.1 cm x 2.3 cm x 2.3 cm. There is a heterogeneous echotexture. Once again, multiple subcentimeters hypoechoic solid nodules are seen. The largest measures 5 mm x 5 mm x 4 mm. This is in the lower pole. ISTHMUS: The isthmus measures 5 mm. The regional lymph nodes are normal. US/Thyroid IMPRESSION: Thyromegaly. Multiple bilateral thyroid nodules as described. There has been essentially no change. Electronically Signed: Bartolo Buck MD at 13:09 EST ,
== END | disposition home or self-care (01) ==
LOC: US 14:21
PROVIDERS: PCP Internal Medicine; Referring Provider Internal Medicine Endocrinology, Diabetes & Metabolism; Visit Provider Internal Medicine Endocrinology, Diabetes & Metabolism
DX: E04.2 Nontoxic multinodular goiter (principal); E03.8 Other specified hypothyroidism; E06.3 Autoimmune thyroiditis
CPT/HCPCS: 76536

== ENCOUNTER 2022-04-11 08:38 | Day surgery (SDC) | payer OTHER, SELFPAY ==
--- NOTE | 2022-04-11 | GASB_PTH ---
PATIENT: TERESE BUTLER LOC: EN U#:[id number] AGE/SX: 72/F ROOM: RE04/11/[address]: Dr. Yuniel Davis DO : 1950 BED: DIS: 04/11/2022 SPEC #: [id number] RECD: 04/11/22 13:31 STATUS: KMIO TOM #: [id number] SHARLENE: 04/11/22 00:[address]: Yuniel Davis DEPT: SURGICAL PATHOLOGY RECD BY: Chris Scott ENTERED: 04/12/22 08:57 SP TYPE: Gastric Bx OTHR DR: Dr. Theresa Rodriguez DO Tissues: A - Gastric mucous membrane B - Gastric mucous membrane C - Esophageal mucous membrane Procedures: Special Stain Group II Surgery Specimen Level IV Alcian Blue/PAS (control) HEADER OPERATION[place] [place] DIAGNOSIS: Gastric wall thickening, IBS, GERD TISSUE SUBMITTED: A - Duodenum biopsy, B ? Gastric cardia biopsy, C ? Distal esophagus biopsy MICROSCOPIC DIAGNOSIS A. Duodenum, biopsy: No pathologic change. B. Gastric cardia, biopsy: Chronic gastritis. C. Distal esophagus, biopsy: Gastroesophageal junctional mucosa with chronic inflammation. Focal changes of reflux. No evidence of goblet cell metaplasia. See comment. AM:santiago 04/15/2022 COMMENT C. Alcian blue/PAS stain with matched control supports the above diagnosis. MICROSCOPIC DESCRIPTION Slides are reviewed. GROSS DESCRIPTION A - Received in fixative is one container labeled with the patient's name and designated duodenum. The specimen consists of multiple irregular fragments of light wall soft tissue that in aggregate measure 0.6 x 0.5 x 0.1 cm. The specimen is totally submitted in one cassette. B - Received in fixative is one container labeled with the patient's name and designated gastric cardia. The specimen consists of one irregular fragment of light wall soft tissue that measures 0.5 x 0.3 x 0.1 cm. The specimen is totally submitted in one cassette. C - Received in fixative is one container labeled with the patient's name and designated distal esophagus. The specimen consists of three irregular fragments of light wall soft tissue that in aggregate measure 0.8 x 0.5 x 0.1 cm. The specimen is totally submitted in one cassette. / AM:santiago 04/12/2022 TC:3 CPT: 65265 x3, 06259
[2022-04-11 08:59] VITALS: BP 161/71; PULSE 81; RESP 18; TEMP 36.6; O2SAT 100; BMI 29.0
--- NOTE | 2022-04-11 09:04 | HP.PCM_ITS ---
History and Physical Date of Admission: 04/11/22 TERESE BUTLER, is a 71 F who presents to the office today for referral for gastric wall thicking on CT of abdomen. CT abd pel with oral contrast was performed on 02/08/2022 for abdominal bloating; on CT she was found to have wall thickening of the stomach suggesting gastritis versus ulcer disease, colonic diverticulosis.? She has had GERD for many years, typically this is controlled with omeprazole 20 mg daily, she reports dose was increased to 40 mg daily after this CT finding.? She has a remote history of peptic ulcer disease. In past couple of weeks she has had epigastric/LUQ pain that radiates through to the back; this reminds her of when she had a peptic ulcer.? She has never been able to discontinue PPI therapy due to acid reflux.? Remote hx of EGD, as well as colonoscopy. Gets Cologuard testing, had it done in 2021, negative. Has frequent abdominal bloating, worse with stress. She notes increased stomach noises since she fell down the stairs in 2021.? She has been physical therapy for back pain related to that fall.? She has a history of IBS.? She has chronic constipation. Has BM every 2 days, but never feels evacuated. Has to strain to have BM. Has tried psyllium husk w/o relief. Only gets diarrhea from [place] food. No melena or hematochezia. Is considering trying Miralax. No abd cramping. Nausea a few times since falling, does report significant stress currently. No vomiting. No early satiety. Told she probably has spasms of the esophagus; rarely has difficulty swallowing pills.? She had an esophagram in 2019, it showed a small hiatal hernia and gastroesophageal reflux.? No CP. She reports frequent cough, needs to clear upper airway, has drainage that accumulates there. Tried probiotic but no improvement in GI symptoms. Covid in October 2021 She is intentionally losing weight, because of pre-diabetes diagnosis She has interstitial cystitis, frequently has discomfort in the suprapubic area Past medical history also includes anxiety, Vonda's, history of breast cancer, history of skin cancer, hypertension, MVP, OA, psoriasis and psoriatic arthritis, fibromyalgia, osteopenia, rosacea Past surgical history includes cholecystectomy, tonsillectomy, hysterectomy, umbilical hernia repair, mastectomy with reconstruction 02/08/2022 CT/Abdomen/Pelvis WITH Contrast IMPRESSION: Wall thickening of the stomach suggesting gastritis versus ulcer disease. Colonic diverticulosis.? No obstruction or abscess. ROS Const Constitutional: No fatigue, fever(s), headache(s), weight change, sleep problems, abnormal sleep pattern or change in appetite ENT ENT: No headache(s), difficulty swallowing, hoarseness or sore throat Resp Respiratory: No cough, hemoptysis or shortness of breath Cardio Cardiology: No chest pain at rest or generalized swelling Gastro GI: Positive for bloating, constipation and heartburn; No abdominal pain, belching, change in bowel habits, change in stool character, coffee ground emesis, cramping, diarrhea, difficulty swallowing, feeling full early, excessive flatus, incontinent of stools, Vomiting blood/hematemesis, Blood in stool, loose stools, Black,tarry stools, nausea/dyspepsia, pain with swallowing or vomiting Musc Musculoskeletal: Positive for numbness, stiffness, tingling, Arthritis and sciatica; No joint pain, back pain or joint swelling Skin Skin: No itchy eyes or rash Neuro Neurology: Positive for numbness and tingling; No behavioral changes, confusion or headache(s) Psych Psychiatric: No abnormal sleep pattern, No anxiety, No behavioral changes, No change in appetite, No confusion and No depression Endo Endocrine: No cold intolerance, fatigue, heat intolerance, increased thirst/drinking or weight change Aller/Imm Allergy/Immunologic: No food intolerance or itchy eyes Tony/Lymp Hematologic/Lymphatic: No easy bleeding, easy bruising or enlarged lymph nodes Exam Const General: cooperative, no acute distress and anxious Nutritional Appearance: overweight Orientation: alert, awake and oriented x3 HENMT Head: normal to inspection Eyes General: appearance normal, both eyes and all related structures Resp Effort & Inspection: normal respiratory effort GI Inspection: obesity Palpation: soft, no hepatosplenomegaly, no masses and nontender Skin General: no jaundice Neuro Gait: normal gait Quality Reporting Tobacco Screening ([facility] 138) Smoking Status: Never smoker Assessment and Plan Assessment and Plan (1) Gastric wall thickening: ?Status:?Acute ?Plan: 31-year-old female with thickened gastric folds on CT scan, differential diagnosis includes gastritis, peptic ulcer disease, malignancy.? She has GERD for which she takes omeprazole 40 mg daily, hiatal hernia.? She has a remote history of peptic ulcer disease. Schedule EGD for thickened gastric folds on CT, GERD, hx PUD, recent epigastric pain Check gastrin Continue omeprazole 40 mg for GERD/hiatal hernia Colonoscopy when covered by her insurance ([facility] For constipation she will try daily miralax.? If not effective we will try something else.? We should be able to decrease her bloating once the constipation is under better control. She will follow-up after EGD (2) IBS (irritable bowel syndrome): ?Status:?Acute ?Plan: as above (3) GERD (gastroesophageal reflux disease): ?Status:?Acute ?Plan: as above ? ? ? Orders: Orders Gastrin, Serum Today K31.89 - Other diseases of stomach and duodenum ? Medications: New omeprazole 40 mg? PO DAILY 90 caps 3RF ? ? I have examined the patient and the H&P has been reviewed. There are no clinical changes since date of exam.
[2022-04-11] MEDS: Lactated Ringers 1,000 ML 15 ML IV (09:09)
[2022-04-11 09:35] VITALS: BP 127/55; BP 161/71; PULSE 69; RESP 18; TEMP 36.9; O2SAT 98
--- NOTE | 2022-04-11 09:35 | OP.EGD_ITS ---
Patient Name: Lidia Guerrero Procedure Date: 04/11/2022 9:00 AM Date of : 1950 Age: 72 Procedure: Upper GI endoscopy Indications: Dyspepsia, Heartburn Providers: Yuniel Davis DO Medicines: Monitored Anesthesia Care Patient Profile: This is a 72 year old female. Refer to note in patient chart for documentation of history and physical. Patient has symptoms. She is status post EGD for Ramos's biopsy. Complications: No immediate complications. Procedure: Pre-Anesthesia Assessment: - Prior to the procedure, a History and Physical was performed, and patient medications and allergies were reviewed. The patient is competent. The risks and benefits of the procedure and the sedation options and risks were discussed with the patient. All questions were answered and informed consent was obtained. Patient identification and proposed procedure were verified by the physician in the pre-procedure area. Mental Status Examination: alert and oriented. Airway Examination: normal oropharyngeal airway and neck mobility. Respiratory Examination: clear to auscultation. CV Examination: normal. Prophylactic Antibiotics: The patient does not require prophylactic antibiotics. Prior Anticoagulants: The patient has taken no previous anticoagulant or antiplatelet agents. ASA Grade Assessment: II - A patient with mild systemic disease. After reviewing the risks and benefits, the patient was deemed in satisfactory condition to undergo the procedure. The anesthesia plan was to use moderate sedation / analgesia (conscious sedation). Immediately prior to administration of medications, the patient was re-assessed for adequacy to receive sedatives. The heart rate, respiratory rate, oxygen saturations, blood pressure, adequacy of pulmonary ventilation, and response to care were monitored throughout the procedure. The physical status of the patient was re-assessed after the procedure. After obtaining informed consent, the endoscope was passed under direct vision. Throughout the procedure, the patient's blood pressure, pulse, and oxygen saturations were monitored continuously. The Endoscope was introduced through the mouth, and advanced to the second part of duodenum. The upper GI endoscopy was accomplished without difficulty. The patient tolerated the procedure well. Scope In: 9:24:02 AM Scope Out: 9:29:19 AM Total Procedure Duration Time 0 hours 5 minutes 17 seconds Findings: The Z-line was irregular and was found 37 cm from the incisors. Biopsies were taken with a cold forceps for histology. Verification of patient identification for the specimen was done. Estimated blood loss was minimal. A medium-sized hiatal hernia was present. Patchy mildly erythematous mucosa without bleeding was found in the gastric body. Biopsies were taken with a cold forceps for histology. Verification of patient identification for the specimen was done. Estimated blood loss was minimal. No gross lesions were noted in the second portion of the duodenum. Impression: - Z-line irregular, 37 cm from the incisors. Biopsied. - Medium-sized hiatal hernia. - Erythematous mucosa in the gastric body. Biopsied. - No gross lesions in the second portion of the duodenum. Recommendation: - Discharge patient to home. - Resume previous diet. - Continue present medications. - Await pathology results. Procedure Code(s): --- Professional --- 93809, Esophagogastroduodenoscopy, flexible, transoral; with biopsy, single or multiple CPT copyright 2017 [employer]. All rights reserved. The codes documented in this report are preliminary and upon multifocal button generator review may be revised to meet current compliance requirements. Yuniel Davis DO 04/11/2022 9:35:15 AM This report has been signed electronically. Number of Addenda: 0 Note Initiated On: 04/11/2022 9:00 AM
--- NOTE | 2022-04-11 09:36 | OP.CCLET_ITS ---
04/11/2022 Theresa Rodriguez [address] [place] [address] Re : Upper GI endoscopy procedure for Lidia Guerrero Dear Dr. Rodriguez This procedure was performed on April. My impressions and recommendations are as follows: Impressions : - Z-line irregular, 37 cm from the incisors. Biopsied. - Medium-sized hiatal hernia. - Erythematous mucosa in the gastric body. Biopsied. - No gross lesions in the second portion of the duodenum. Recommendations : - Discharge patient to home. - Resume previous diet. - Continue present medications. - Await pathology results. My findings are described in the full procedure note, which is enclosed. If I can be of further assistance, please feel free to contact me at . Sincerely, Yuniel Davis, 04/11/2022 9:35:15 AM This report has been signed electronically.
[2022-04-11 09:40] VITALS: BP 130/58; BP 161/71; PULSE 60; RESP 16; O2SAT 98
[2022-04-11 09:45] VITALS: BP 136/54; BP 161/71; PULSE 60; RESP 16; O2SAT 98
[2022-04-11 09:50] VITALS: BP 133/56; BP 161/71; PULSE 58; RESP 16; TEMP 36.6; O2SAT 98
[2022-04-11 10:35] VITALS: BP 161/71
== END 2022-04-11 10:45 | disposition home or self-care (01) ==
LOC: EN 08:39 → AC 08:40
PROVIDERS: PCP Internal Medicine; Referring Provider Internal Medicine; Visit Provider Internal Medicine Gastroenterology
PROC: 0DJ08ZZ Inspection of Upper Intestinal Tract, Via Natural or Artificial Opening Endoscopic (ICD-10-PCS; CPT 43235; principal; 2022-04-11 09:40)
DX: K29.50 Unspecified chronic gastritis without bleeding (principal); K21.9 Gastro-esophageal reflux disease without esophagitis; K63.89 Other specified diseases of intestine; K44.9 Diaphragmatic hernia without obstruction or gangrene; E06.3 Autoimmune thyroiditis; M99.01 Segmental and somatic dysfunction of cervical region; M99.03 Segmental and somatic dysfunction of lumbar region; M99.05 Segmental and somatic dysfunction of pelvic region; M99.02 Segmental and somatic dysfunction of thoracic region; E78.00 Pure hypercholesterolemia, unspecified; Z79.899 Other long term (current) drug therapy; K31.89 Other diseases of stomach and duodenum
CPT/HCPCS: 43239; 88305; 88313; J7120; J2405

== ENCOUNTER 2022-06-06 11:30 | Outpatient (RCR) | payer OTHER, SELFPAY ==
--- NOTE | 2022-05-22 13:51 | HP.PTEVAL_ITS ---
Patient's Visit Information TERESE BUTLER is a 72 year old F referred to Physical Therapy by Dr. Tayla Boland, GUERRERO with a diagnosis of gait abnormality. Date of Evaluation: 05/22/22 Physical Therapist: Darrion Fuentes, DELTA, OCS, CSCS - Visit Plan Frequency: 2x /Week Duration: 4-6 Weeks Plan: 2x/week for 4 weeks for. 1. teach FW weight shift and vestibular balance ex and work to HEP. 2. Teach general home strength program and work to HEP. 3. Work on gait training with ec, bending, stooping, changing direction. - Subjective I am here for balance. I waiver BW when I am standing. Sometimes falls forward(last at [facility])when leaning/bending Fw. These balance issues have mostly bee within the last 6 months. Fell last January and spine has hurt since. she fell down the steps hauling tote down the steps holding on and missed a step and the tote pulled her down the steps. Dr. Boland is helping her with spine pain.Had x rays at the time which were fine. Sleeping OK. Not employed. Spends day doing house duties. Avoids lifting heavy. Climbs steps but is scary since she fell. Basic ADLS dressing , bathing, cleaning and cooking are all done. Has to be cautious with everything with movement and weight shifts. Leaning BW can hurt. Dr. Boland is treating that but she knows she needs to be more pliable. No regular exercises lately. Son moved into home gym room. Has recumbent and stationary bike and small treadmill all in basement. Has bands. Hobbies: Putz around house. - Pain spine Pain Intensity (Out of 10): 2 Pain Intensity Range: 0, 3 - Objective Walks with short steps and slow but I. Good balance. Transfers bed and chair I without UE. Steps reciprocal with one rail. Stands with weight posterior on h eals and avoids forefoot WB. Gastroc muscle B very tight. AROM LE WFL. reflexes 2/3 patella and achilles. Sensation LE WNL to gross light touch. strength hips 4-, ankles 4 and knees 4. coordination to reciprocal toe tap is WNL and heel to edmond test is good. Standing on foam is all posterior weight and unable to keep eyes closed and stand. - Balance/Special Test Scores Functional Gait Assessment Score: 26 % Disability: 13.3400 CATSIB Score (Max score 120 seconds): 92 Lower Extremity Functional Score: 49 - Goals Goal 1:: FGA 28/30 Goal Time Frame: 4-6 Weeks Goal 2:: I approp HEP for balance and general body strength Goal Time Frame: 4-6 Weeks Goal 3:: Bend adn recover without losing balance Goal Time Frame: 4-6 Weeks - Rehabilitation Potential Physical Therapy Diagnosis: imbalance Rehabilitation Potential: Good - Anticipated Interventions Patient/Client Instruction: Educate patient on: Condition, Plan of Care For the Purpose of:: To decrease pain, To improve muscle performance and motor function, To increase tolerance to activity/condition/position, To improve gait and locomotor functions Therapeutic Exercise to Include: Strength training, Balance training, Flexibilty training For the Purpose of:: To improve nutrient delivery to tissue, To improve muscle performance and motor function, To increase tolerance to activi ty/condition/position, To improve ability of physical actions for home/community/work/leisure Thank you for the opportunity to evaluate your patient. For Medicare and Medicare HMO plans, please review the plan of care and approve it. It will need to be FAXED BACK to us at [phone] for Medicare purposes. For Medicare only, by signing this I certify the plan of care. Please let me know if there are questions or concerns regarding this plan of care. Physician Signature: Date:
--- NOTE | 2022-07-22 08:16 | HP.PT.NRP ---
TERESE BUTLER was seen in my office for initial evaluation on 05/22/22. The following Plan of Care was established for this patient: Initial Frequency: 2x /Week Initial Duration: 4-6 Weeks Patient/Client Instruction: Educate patient on: Condition, Plan of Care For the Purpose of:: To decrease pain, To improve muscle performance and motor function, To increase tolerance to activity/condition/position, To improve gait and locomotor functions Therapeutic Exercise to Include: Strength training, Balance training, Flexibilty training For the Purpose of:: To improve nutrient delivery to tissue, To improve muscle performance and motor function, To increase tolerance to activity/condition/position, To improve ability of physical actions for home/community/work/leisure This patient was last seen in our office 06/06/22. Pertinent comments regarding their Physical therapy will appear below: Pt seen 5 visits of POC and was 50% better. Was doing well with exercises at home and was to f/u three weeks later to ensure progress but did not schedule or attend. At this point, it has been over a month and I will discontinue due to nonattendance. At this point I will be discontinuing this patient from physical therapy. I would be happy to see this patient again in the future if found appropriate by the physician. Thank you! Darrion Fuentes, DPT, OCS, CSCS Balance/Gait/Functional tests - Balance/Special Test Scores Functional Gait Assessment Score: 26 % Disability: 13.3400 CATSIB Score (Max score 120 seconds): 92 Lower Extremity Functional Score: 49
== END 2022-06-06 19:00 | disposition home or self-care (01) ==
LOC: PT 11:30
PROVIDERS: PCP Internal Medicine; Referring Provider Chiropractor; Visit Provider Chiropractor
DX: M41.26 Other idiopathic scoliosis, lumbar region (principal); M99.02 Segmental and somatic dysfunction of thoracic region; M99.03 Segmental and somatic dysfunction of lumbar region; M99.05 Segmental and somatic dysfunction of pelvic region; M51.35 Other intervertebral disc degeneration, thoracolumbar region; R26.89 Other abnormalities of gait and mobility
CPT/HCPCS: 97110; 97161

== ENCOUNTER → 2022-07-29 | Outpatient (CLI) | payer OTHER, SELFPAY ==
[2022-08-03 08:54] LABS: Pancreatic Elastase, Fecal 188 (>200)
== END | disposition home or self-care (01) ==
LOC: LABSPEC 15:33
PROVIDERS: PCP Internal Medicine; Referring Provider Nurse Practitioner Adult Health; Visit Provider Nurse Practitioner Adult Health
DX: R10.13 Epigastric pain (principal)
CPT/HCPCS: 82653

== ENCOUNTER → 2022-11-28 | Outpatient (CLI) | payer OTHER, SELFPAY ==
--- NOTE | 2022-11-28 10:42 | BI_ITS ---
MAMMOGRAPHY - UNILATERAL SCREENING: LEFT BREAST REASON FOR EXAM: Female, 72 years old. Routine annual screening examination (unilateral). PERTINENT HISTORY: Personal history of breast cancer with previous right mastectomy. TECHNIQUE: Digital examination. Mediolateral oblique (MLO) and craniocaudad (CC) views of the breast were obtained, along with 3-D tomosynthesis. CAD: CAD was performed on this study. COMPARISON: 11/27/2021 FINDINGS: Breast Composition: There are scattered areas of fibroglandular density. There are no dominant masses or suspicious calcifications. No other significant abnormalities are identified. BI/SCREEN MAMM (CAD) W/SAMMY UNI L IMPRESSION: Stable bilateral screening mammogram. ASSESSMENT CATEGORY: BIRADS Category 1: Negative. A letter regarding these results will be sent to the patient by the facility within 30 days. FOLLOW UP RECOMMENDATION: Yearly follow up mammogram recommended. (A) [id number] Approximately 10% of breast cancers are not detected by mammography. A normal mammogram should not delay biopsy of a clinically suspicious abnormality. [id number] Electronically Signed: Riley Courtney MD at 12:00 EDT ,
== END | disposition home or self-care (01) ==
LOC: OPBI 10:41
PROVIDERS: PCP Internal Medicine; Referring Provider Internal Medicine Medical Oncology; Visit Provider Internal Medicine Medical Oncology
DX: Z12.31 Encounter for screening mammogram for malignant neoplasm of breast (principal); Z85.3 Personal history of malignant neoplasm of breast
CPT/HCPCS: 77063; 77067

== ENCOUNTER 2023-03-27 09:54 | Day surgery (SDC) | payer OTHER, SELFPAY ==
--- NOTE | 2023-03-27 10:11 | PCM.HP.BLA ---
History and Physical Date of Admission: 03/27/23 72 F who presents to the office today for f/u IBS, bloating, GERD c/o bloating, excess stomach noise, c/o excess noise in upper abd since she fell down stairs last yr BM less than once a day taking miralax prn rather than daily, omeprazole 20 mg, probiotic has had the epigastric pain that radiated through to the back, only a few times since her last visit, much less problematic Fecal elastase slightly low at 188 in 07/2022 has pre-diabetes Zenith -- contains fiber, started yesterday, has increased bloating She has intentionally lost 30 lbs in the past year ROS Const Constitutional: No fatigue ENT ENT: No difficulty swallowing Gastro GI: Positive for constipation, diarrhea, Vomiting blood/hematemesis and nausea/dyspepsia; No abdominal pain, belching, bloating, change in bowel habits, change in stool character, coffee ground emesis, cramping, heartburn, difficulty swallowing, feeling full early, excessive flatus, incontinent of stools, Blood in stool, loose stools, Black,tarry stools, pain with swallowing, vomiting or other Musc Musculoskeletal: Positive for joint pain, back pain, muscle cramps, numbness, tingling, Arthritis and sciatica Skin Skin: No yellowing of the eye or itchy eyes Neuro Neurology: Positive for numbness and tingling Psych Psychiatric: No anxiety and No depression Endo Endocrine: No fatigue Aller/Imm Allergy/Immunologic: No itchy eyes Tony/Lymp Hematologic/Lymphatic: No easy bleeding or easy bruising Exam Const General: cooperative, healthy appearing and comfortable Orientation: alert, awake and oriented x3 Quality Reporting Tobacco Screening ([facility] 138) Smoking Status: Never smoker Assessment and Plan Assessment and Plan (1) GERD (gastroesophageal reflux disease): Status: Chronic Plan: continue omeprazole 20 mg daily we went through all her supplements today (2) Constipation: Status: Chronic Plan: Try daily miralax Consider aloe vera gel supplement or kiwi supplement I think she can stop probiotic (3) Epigastric pain: Status: Chronic Plan: Less often I don't think she needs rx pancreatic enzymes at this time Can follow f/u 3-6 mos Medications: Discontinued sucralfate Discontinued Reason: Order Completed 1 g PO BID 60 tabs 0RF I have examined the patient and the H&P has been reviewed. There are no clinical changes since date of exam.
[2023-03-27 10:25] VITALS: BP 168/53; PULSE 85; RESP 18; TEMP 36.6; O2SAT 100; BMI 27.3
[2023-03-27] MEDS: Lactated Ringers 1,000 ML 15 ML IV (10:28)
--- NOTE | 2023-03-27 11:00 | COLBX_PTH ---
PATIENT: TERESE BUTLER LOC: EN U#:[id number] AGE/SX: 72/F ROOM: RE03/27/[address]: Dr. Yuniel Davis DO : 1950 BED: DIS: 03/27/2023 SPEC #: [id number] RECD: 03/27/23 13:45 STATUS: KIMO REJose #: [id number] SHARLENE: 03/27/23 11:[address]: Yuniel Davis DEPT: SURGICAL PATHOLOGY RECD BY: Alejandra Omalley ENTERED: 03/28/23 09:25 SP TYPE: COLON BX OTHR DR: Dr. Theresa Rodriguez DO Tissues: A - Duodenum, NOS B - Esophagus, NOS C - Ileum, NOS D - Sigmoid colon biopsy Procedures: Special Stain Group II Surgery Specimen Level IV Alcian Blue/PAS (control) HEADER OPERATION: Colonoscopy, EGD PRE-OP DIAGNOSIS: GERD, constipation TISSUE SUBMITTED: A - Duodenum biopsy, B - Distal esophagus biopsy, C - Terminal ileum biopsy, D - Sigmoid polyp MICROSCOPIC DIAGNOSIS A. Duodenum, biopsy: No pathologic change. B. Distal esophagus, biopsy: Gastroesophageal junctional mucosa with mild chronic inflammation. No evidence of goblet cell metaplasia. See comment. C. Terminal ileum, biopsy: Focal acute enteritis. D. Sigmoid colon polyp, biopsy: Tubular adenoma. AM:santiago 03/31/2023 COMMENT B. Alcian blue/PAS stain with matched control supports the above diagnosis. MICROSCOPIC DESCRIPTION Slides are reviewed. GROSS DESCRIPTION A - Received in fixative is one container labeled with the patient's name and designated duodenum biopsy. The specimen consists of two irregular fragments of light wall soft tissue that in aggregate measure 0.6 x 0.6 x 0.1 cm. The specimen is totally submitted in one cassette. B - Received in fixative is one container labeled with the patient's name and designated distal esophagus. The specimen consists of two irregular fragments of light wall soft tissue that in aggregate measure 0.5 x 0.5 x 0.1 cm. The specimen is totally submitted in one cassette. C - Received in fixative is one container labeled with the patient's name and designated terminal ileum. The specimen consists of multiple irregular fragments of light wall soft tissue that in aggregate measure 1.0 x 0.6 x 0.1 cm. The specimen is totally submitted in one cassette. D - Received in fixative is one container labeled with the patient's name and designated sigmoid polyp. The specimen consists of one irregular fragment of light wall soft tissue that measures 0.5 x 0.3 x 0.1 cm. The specimen is totally submitted in one cassette. / AM:santiago 03/28/2023 TC:3 CPT: 60599 x4, 70575
[2023-03-27 12:05] VITALS: BP 116/35; BP 168/53; PULSE 62; RESP 16; TEMP 37; O2SAT 97
--- NOTE | 2023-03-27 12:09 | OP.CCLET_ITS ---
03/27/2023 Theresa Rodriguez [address] [place] [address] Re : Upper GI endoscopy procedure for Lidia Guerrero Dear Dr. Rodriguez This procedure was performed on March. My impressions and recommendations are as follows: Impressions : - Z-line irregular, 39 cm from the incisors. Biopsied. - Small hiatal hernia. - A few gastric polyps. Treated with a heater probe. - No gross lesions in the first portion of the duodenum. Biopsied. Recommendations : - Written discharge instructions were provided to the patient. - The signs and symptoms of potential delayed complications were discussed with the patient. - Patient has a contact number available for emergencies. - Return to normal activities tomorrow. - Resume previous diet. - Continue present medications. - Await pathology results. My findings are described in the full procedure note, which is enclosed. If I can be of further assistance, please feel free to contact me at . Sincerely, Yuniel Davis, 03/27/2023 12:09:03 PM This report has been signed electronically.
--- NOTE | 2023-03-27 12:09 | OP.EGD_ITS ---
Patient Name: Lidia Guerrero Procedure Date: 03/27/2023 11:28 AM Date of : 1950 Age: 72 Procedure: Upper GI endoscopy Indications: Epigastric abdominal pain, Functional Dyspepsia, Heartburn Providers: Yuniel Davis DO Medicines: Monitored Anesthesia Care Patient Profile: This is a 72 year old female. Refer to note in patient chart for documentation of history and physical. Patient has symptoms of chronic epigastric abdominal pain. Complications: No immediate complications. Procedure: Pre-Anesthesia Assessment: - Prior to the procedure, a History and Physical was performed, and patient medications and allergies were reviewed. The patient is competent. The risks and benefits of the procedure and the sedation options and risks were discussed with the patient. All questions were answered and informed consent was obtained. Patient identification and proposed procedure were verified by the physician in the pre-procedure area. Mental Status Examination: alert and oriented. Airway Examination: normal oropharyngeal airway and neck mobility. Prophylactic Antibiotics: The patient does not require prophylactic antibiotics. Prior Anticoagulants: The patient has taken no anticoagulant or antiplatelet agents. After reviewing the risks and benefits, the patient was deemed in satisfactory condition to undergo the procedure. The anesthesia plan was to use monitored anesthesia care (MAC). Immediately prior to administration of medications, the patient was re-assessed for adequacy to receive sedatives. The heart rate, respiratory rate, oxygen saturations, blood pressure, adequacy of pulmonary ventilation, and response to care were monitored throughout the procedure. The physical status of the patient was re-assessed after the procedure. After obtaining informed consent, the endoscope was passed under direct vision. Throughout the procedure, the patient's blood pressure, pulse, and oxygen saturations were monitored continuously. The was introduced through the mouth, and advanced to the second part of duodenum. The upper GI endoscopy was accomplished without difficulty. The patient tolerated the procedure well. Scope In: 11:39:19 AM Scope Out: 11:44:17 AM Total Procedure Duration Time 0 hours 4 minutes 58 seconds Findings: The Z-line was irregular and was found 39 cm from the incisors. Biopsies were taken with a cold forceps for histology. Verification of patient identification for the specimen was done. Estimated blood loss was minimal. A small hiatal hernia was present. A few 5 mm hyperplastic polyps with bleeding and stigmata of recent bleeding were found in the stomach. Coagulation for hemostasis using heater probe was successful. Estimated blood loss was minimal. No gross lesions were noted in the first portion of the duodenum. Biopsies were taken with a cold forceps for histology. Verification of patient identification for the specimen was done. Estimated blood loss was minimal. Impression: - Z-line irregular, 39 cm from the incisors. Biopsied. - Small hiatal hernia. - A few gastric polyps. Treated with a heater probe. - No gross lesions in the first portion of the duodenum. Biopsied. Recommendation: - Written discharge instructions were provided to the patient. - The signs and symptoms of potential delayed complications were discussed with the patient. - Patient has a contact number available for emergencies. - Return to normal activities tomorrow. - Resume previous diet. - Continue present medications. - Await pathology results. Procedure Code(s): --- Professional --- 89590, 59, Esophagogastroduodenoscopy, flexible, transoral; with control of bleeding, any method 70134, Esophagogastroduodenoscopy, flexible, transoral; with biopsy, single or multiple CPT copyright 2021 [employer]. All rights reserved. The codes documented in this report are preliminary and upon data coder operator review may be revised to meet current compliance requirements. Yuniel Davis DO 03/27/2023 12:09:03 PM This report has been signed electronically. Number of Addenda: 0 Note Initiated On: 03/27/2023 11:28 AM
[2023-03-27 12:10] VITALS: BP 117/54; BP 168/53; PULSE 62; RESP 16; O2SAT 99
--- NOTE | 2023-03-27 12:12 | OP.COLON_ITS ---
Patient Name: Lidia Guerrero Procedure Date: 03/27/2023 11:44 AM Date of : 1950 Age: 72 Procedure: Colonoscopy Indications: Screening for colorectal malignant neoplasm Providers: Yuniel Davis DO Medicines: Monitored Anesthesia Care Patient Profile: This is a 72 year old female. Refer to note in patient chart for documentation of history and physical. Patient has symptoms of chronic epigastric abdominal pain. Last Colonoscopy: 10 years ago. Complications: No immediate complications. Procedure: Pre-Anesthesia Assessment: - Prior to the procedure, a History and Physical was performed, and patient medications and allergies were reviewed. The patient is competent. The risks and benefits of the procedure and the sedation options and risks were discussed with the patient. All questions were answered and informed consent was obtained. Patient identification and proposed procedure were verified by the physician in the pre-procedure area. Mental Status Examination: alert and oriented. Airway Examination: normal oropharyngeal airway and neck mobility. Prophylactic Antibiotics: The patient does not require prophylactic antibiotics. Prior Anticoagulants: The patient has taken no anticoagulant or antiplatelet agents. After reviewing the risks and benefits, the patient was deemed in satisfactory condition to undergo the procedure. The anesthesia plan was to use monitored anesthesia care (MAC). Immediately prior to administration of medications, the patient was re-assessed for adequacy to receive sedatives. The heart rate, respiratory rate, oxygen saturations, blood pressure, adequacy of pulmonary ventilation, and response to care were monitored throughout the procedure. The physical status of the patient was re-assessed after the procedure. After I obtained informed consent, the scope was passed under direct vision. Throughout the procedure, the patient's blood pressure, pulse, and oxygen saturations were monitored continuously. The was introduced through the anus and advanced to the terminal ileum. The colonoscopy was performed without difficulty. The patient tolerated the procedure well. The quality of the bowel preparation was adequate. The terminal ileum, ileocecal valve, appendiceal orifice, and rectum were photographed. Scope In: 11:46:47 AM Scope Withdrawal Time 0 hours 11 minutes 2 seconds Scope Out: 11:59:57 AM Total Procedure Duration Time 0 hours 13 minutes 10 seconds Findings: The perianal and digital rectal examinations were normal. A few small and large-mouthed diverticula were found in the recto-sigmoid colon and sigmoid colon. An 8 mm polyp was found in the sigmoid colon. The polyp was sessile. The polyp was removed with a hot snare. Resection and retrieval were complete. Verification of patient identification for the specimen was done. Estimated blood loss was minimal. Localized mild inflammation characterized by congestion (edema) was found in the terminal ileum. Biopsies were taken with a cold forceps for histology. Verification of patient identification for the specimen was done. Estimated blood loss was minimal. Impression: - Diverticulosis in the recto-sigmoid colon and in the sigmoid colon. - One 8 mm polyp in the sigmoid colon, removed with a hot snare. Resected and retrieved. - Mild inflammation was found in the ileum secondary to ileitis. Biopsied. Recommendation: - Discharge patient to home. - Resume previous diet. - Continue present medications. - Await pathology results. - Repeat colonoscopy in 5 years for surveillance. - Return to GI office. Procedure Code(s): --- Professional --- 86729, Colonoscopy, flexible; with removal of tumor(s), polyp(s), or other lesion(s) by snare technique 57034, 59, Colonoscopy, flexible; with biopsy, single or multiple CPT copyright 2021 [employer]. All rights reserved. The codes documented in this report are preliminary and upon heel finisher review may be revised to meet current compliance requirements. Yuniel Davis DO 03/27/2023 12:12:19 PM This report has been signed electronically. Number of Addenda: 0 Note Initiated On: 03/27/2023 11:44 AM
--- NOTE | 2023-03-27 12:12 | OP.CCLET_ITS ---
03/27/2023 Theresa Rodriguez [address] [place] [address] Re : Colonoscopy procedure for Lidia Guerrero Dear Dr. Rodriguez This procedure was performed on March. My impressions and recommendations are as follows: Impressions : - Diverticulosis in the recto-sigmoid colon and in the sigmoid colon. - One 8 mm polyp in the sigmoid colon, removed with a hot snare. Resected and retrieved. - Mild inflammation was found in the ileum secondary to ileitis. Biopsied. Recommendations : - Discharge patient to home. - Resume previous diet. - Continue present medications. - Await pathology results. - Repeat colonoscopy in 5 years for surveillance. - Return to GI office. My findings are described in the full procedure note, which is enclosed. If I can be of further assistance, please feel free to contact me at . Sincerely, Yuniel Friend, 03/27/2023 12:12:19 PM This report has been signed electronically.
[2023-03-27 12:15] VITALS: BP 139/68; BP 168/53; PULSE 61; RESP 14; O2SAT 99
[2023-03-27 12:20] VITALS: BP 154/67; BP 168/53; PULSE 61; RESP 14; TEMP 36.6; O2SAT 99
[2023-03-27 12:43] VITALS: BP 168/53
== END 2023-03-27 13:03 | disposition home or self-care (01) ==
LOC: EN 09:55 → AC 09:57
PROVIDERS: PCP Internal Medicine; Referring Provider Internal Medicine; Visit Provider Internal Medicine Gastroenterology
PROC: 0DJD8ZZ Inspection of Lower Intestinal Tract, Via Natural or Artificial Opening Endoscopic (ICD-10-PCS; CPT 45378; principal; 2023-03-27 10:55)
DX: R10.13 Epigastric pain (principal); K44.9 Diaphragmatic hernia without obstruction or gangrene; K63.5 Polyp of colon; K31.7 Polyp of stomach and duodenum; K21.9 Gastro-esophageal reflux disease without esophagitis; K57.30 Diverticulosis of large intestine without perforation or abscess without bleeding; K59.00 Constipation, unspecified; K52.9 Noninfective gastroenteritis and colitis, unspecified; K22.89 Other specified disease of esophagus
CPT/HCPCS: 45380; 43239; 45385; 43255; 88305; 88313; J7120; J2405

== ENCOUNTER → 2023-04-01 | Outpatient (CLI) | payer OTHER, SELFPAY ==
[2023-04-01 15:40] LABS: AST(SGOT) 22 U/L (15-37); Alanine Aminotransfer ALT/SGPT 33 U/L (13-56); Albumin, Serum 3.8 g/dL (3.2-5.0); Alkaline Phosphatase 73 U/L (45-117); Anion Gap 2 (5-15); BUN 17 mg/dL (7-18); BUN/Creat Ratio 22.1 RATIO (10-20); Calcium,Total 9.1 mg/dL (8.5-10.1); Chloride 107 mmol/L (98-107); Creatinine, Serum 0.77 mg/dL (0.55-1.02); EST Glomerular Filtration Rate 78 mL/min (>60); Est Glom Filt Rate - Afr Amer 94 mL/min (>60); Globulin 3.7 g/dL (2.2-4.2); Glucose 89 mg/dL (74-106); Potassium 4.1 mmol/L (3.5-5.1); Protein, Total 7.5 g/dL (6.4-8.2); Sodium Level 140 mmol/L (136-145); T4 Free Direct 1.24 ng/dL (0.76-1.46); Thyroid Stim Hormone (TSH) 0.84 uIU/mL (0.358-3.74)
[2023-04-01 15:44] LABS: Vitamin D,25 Hydroxy 61.2 ng/mL
== END | disposition home or self-care (01) ==
LOC: LAB 13:53
PROVIDERS: PCP Internal Medicine; Visit Provider Internal Medicine Endocrinology, Diabetes & Metabolism
DX: E03.8 Other specified hypothyroidism (principal); E06.3 Autoimmune thyroiditis; E04.2 Nontoxic multinodular goiter; E55.9 Vitamin D deficiency, unspecified; M85.80 Other specified disorders of bone density and structure, unspecified site
CPT/HCPCS: 36415; 80053; 82306; 84439; 84443

== ENCOUNTER → 2023-04-08 | Outpatient (CLI) | payer OTHER, SELFPAY ==
--- NOTE | 2023-04-08 15:20 | US_ITS ---
STUDY: THYROID ULTRASOUND REASON FOR EXAM: Female, 73 years old. compare to 2021 F/U THYROID NODULES TECHNIQUE: Ultrasound evaluation of the thyroid was performed with real-time and static snyder-scale imaging. COMPARISON: 04/10/2022 FINDINGS: RIGHT LOBE: The right lobe of the thyroid gland measures 6.0 x 2.4 x 3.0 cm. There is a heterogeneous echotexture. Nodule 1: No change in the 13 x 11 x 9 mm solid hypoechoic wider than tall ill-defined margin nodule with no echogenic foci (TR 4) in the posterior right lobe and follow-up ultrasound is recommended in one year. Nodule 2: No change in the 10 x 8 x 10 mm solid hypoechoic wider than tall ill-defined margin nodule with no echogenic foci (TR 4) (the posterior right lobe and follow-up ultrasound is recommended in one year. Nodule 3: Enlarging (20 x 10 x 18 mm from 17 x 12 x 15 mm) solid isoechoic wider than tall ill-defined margin nodule with no echogenic foci (TR 3) in the mid right lobe and follow-up ultrasound is recommended in one year. LEFT LOBE: The left lobe of the thyroid gland measures 5.7 x 2.4 x 2.6 cm. There is a heterogeneous echotexture. There are no demonstrated solid, cystic or complex lesions. ISTHMUS: The isthmus measures 7 mm thick. . The regional lymph nodes are normal. US/Thyroid IMPRESSION: Thyroiditis with multiple nodules including an enlarging nodule in the right lobe and follow-up ultrasound is recommended in one year. Electronically Signed: Josiah Mcdowell MD at 19:03 EST ,
== END | disposition home or self-care (01) ==
LOC: US 15:17
PROVIDERS: PCP Internal Medicine; Referring Provider Internal Medicine Endocrinology, Diabetes & Metabolism; Visit Provider Internal Medicine Endocrinology, Diabetes & Metabolism
DX: E04.2 Nontoxic multinodular goiter (principal)
CPT/HCPCS: 76536

== ENCOUNTER → 2023-06-12 | Outpatient (CLI) | payer OTHER, SELFPAY ==
--- NOTE | 2023-06-12 09:40 | RAD_ITS ---
STUDY: X-RAY - ACUTE ABDOMINAL SERIES REASON FOR EXAM: Female, 73 years old. acute abd. pain, r/o constipation. hx of IBS -- acute abd. pain, r/o constipation. hx of IBS TECHNIQUE: Single view of the chest. Supine, and erect view(s) of the abdomen were obtained. COMPARISON: None. FINDINGS: Surgical clips overlie the right chest. The lungs are clear and expanded. Normal size heart. Normal mediastinum and susanne. Normal visualized pulmonary arteries. Normal visualized aortic arch and descending thoracic aorta. There is a non-specific bowel gas pattern. The soft tissue structures of the abdomen and pelvis are unremarkable. Prominent stool is noted within the sigmoid and descending colon. Mild scoliotic curve of the thoracolumbar spine is present. RAD/Acute Abdomen Inc Chest IMPRESSION: No evidence of acute cardiopulmonary or intra-abdominal process. Prominent stool within the sigmoid and ascending colon. Electronically Signed: Gera Chua DO at 16:53 EST ,
[2023-06-12 09:47] LABS: Absolute Lymphocyte Count 2.07 X10^3/uL (0.83-4.51); Absolute Neutrophil Count 4.1 X10^3/uL (2.0-7.7); Basophil# 0.04 X10^3/uL; Basophil% 0.6 % (0-1); Eosinophil# 0.16 X10^3/uL; Eosinophils% 2.3 % (0-5); Hematocrit 42.1 % (37-47); Hemoglobin 13.7 g/dL (12.0-15.0); Lymphocyte # 2.07 X10^3/ul (0.83-4.51); Lymphocyte % 29.9 % (19-41); Mean Corp Hgb Conc 32.5 g/dL (32-36); Mean Corpuscular Hgb 30.5 pg (27.0-32.0); Mean Corpuscular Volume 93.8 fL (81-99); Mean Platelet Vol. 11.4 fl (6.2-12.0); Monocyte# 0.59 X10^3/uL; Monocyte% 8.5 % (0-10); NRBC Flagged by Analyzer 0 % (0-5); Neutrophil # 4.05 X10^3/uL (2.7-7.7); Neutrophil % 58.6 % (47-70); Platelet Count 171 K/mm3 (150-450); RBC Distribution Width CV 12.3 % (11.6-14.6); RBC Distribution Width SD 42.6 fl (35.1-43.9); Red Blood Count 4.49 M/mm3 (4.2-5.4); White Blood Count 6.9 K/mm3 (4.4-11.0)
== END | disposition home or self-care (01) ==
PROVIDERS: PCP Internal Medicine; Visit Provider Internal Medicine
DX: D72.829 Elevated white blood cell count, unspecified (principal); R10.9 Unspecified abdominal pain
CPT/HCPCS: 36415; 74022; 85025

== ENCOUNTER 2023-06-13 16:15 | Emergency (ER) | payer OTHER, SELFPAY ==
[2023-06-13 16:16] VITALS: BP 183/70; PULSE 77; RESP 14; TEMP 36.2; O2SAT 99; BMI 28.5
--- NOTE | 2023-06-13 16:44 | CT_ITS ---
STUDY: CT BRAIN WITHOUT CONTRAST REASON FOR EXAM: Female, 73 years old. pain RADIATION DOSAGE (If Supplied By Facility): CTDIvol = ( 44.99 ) mGy, DLP = ( 866.41 ) mGycm TECHNIQUE: Transaxial CT imaging of the brain was performed without administration of intravenous contrast material. Individualized dose optimization techniques were used for this CT. COMPARISON: 01/30/2022 FINDINGS: Normal soft tissue structures. Normal calvarium. There is mild cerebral atrophy with widening of the extra-axial spaces and ventricular dilatation. There are areas of decreased attenuation within the white matter tracts of the supratentorial brain, consistent with microvascular disease changes. Normal basal ganglia and thalami. Normal brainstem. Normal cerebellum. There is no intracranial hemorrhage. There are no findings of an acute ischemic infarction. Normal visualized paranasal sinuses. CT/Brain/Head without Contrast IMPRESSION: Chronic involutional changes of the brain. Electronically Signed: Josiah Mcdowell MD at 17:29 EST ,
--- NOTE | 2023-06-13 16:50 | RAD_ITS ---
STUDY: X-RAY CHEST REASON FOR EXAM: Female, 73 years old. sob TECHNIQUE: Single AP portable view of the chest. COMPARISON: 06/12/2023 FINDINGS: The lungs are clear and expanded. There is no demonstrated pleural abnormality. Normal size heart. Normal mediastinum and susanne. Normal visualized pulmonary arteries. Normal visualized aortic arch and descending thoracic aorta. There is a dextroscoliosis of the thoracic spine. Multiple healed right rib fractures. There is no demonstrated abnormality of the visualized soft tissue structures of the upper abdomen. RAD/Chest 1 View (Portable) IMPRESSION: No active disease. Electronically Signed: Josiah Mcdowell MD at 17:26 EST ,
[2023-06-13 16:54] LABS: Absolute Lymphocyte Count 1.95 X10^3/uL (0.83-4.51); Absolute Neutrophil Count 4.9 X10^3/uL (2.0-7.7); Basophil# 0.04 X10^3/uL; Basophil% 0.5 % (0-1); Eosinophil# 0.08 X10^3/uL; Eosinophils% 1.1 % (0-5); Hematocrit 43.4 % (37-47); Hemoglobin 14.5 g/dL (12.0-15.0); Lymphocyte # 1.95 X10^3/ul (0.83-4.51); Lymphocyte % 25.9 % (19-41); Mean Corp Hgb Conc 33.4 g/dL (32-36); Mean Corpuscular Hgb 30.5 pg (27.0-32.0); Mean Corpuscular Volume 91.4 fL (81-99); Mean Platelet Vol. 11.8 fl (6.2-12.0); Monocyte# 0.55 X10^3/uL; Monocyte% 7.3 % (0-10); NRBC Flagged by Analyzer 0 % (0-5); Neutrophil # 4.89 X10^3/uL (2.7-7.7); Neutrophil % 64.9 % (47-70); Platelet Count 168 K/mm3 (150-450); RBC Distribution Width CV 12.2 % (11.6-14.6); RBC Distribution Width SD 40.6 fl (35.1-43.9); Red Blood Count 4.75 M/mm3 (4.2-5.4); White Blood Count 7.5 K/mm3 (4.4-11.0)
[2023-06-13] MEDS: Meclizine HCl 25 MG Tablet PO (17:17)
--- NOTE | 2023-06-13 17:17 | EDS_ITS ---
HPI <Layne Jules RN - Last Filed: 06/13/23 22:22> History of Present Illness Chief Complaint: Dizziness Informant: patient and spouse/S.O. Onset/Context/Timing Onset: Yesterday Timing: Intermittent Current Severity: Mild Narrative Narrative: Patient is a 73-year-old female who presents with her spouse for complaints of dizziness head and bilateral eye pressure beginning yesterday. Symptoms are intermittent. Patient describes symptoms as everything becoming white and nearly passing out. Denies syncope. Denies weakness or chest pain. Reports a thump in her chest when this occurs. Following near syncopal episode patient reports facial pressure described as flushing. Patient reports history of migraines states this is not the same as her usual migraine. Patient also reports right upper quadrant pain and bloating along with nausea for 4 days. Patient was concern for kidney stone. Saw nurse practitioner on 06/11/2023. Patient had abdominal x-ray yesterday lab work and a urinalysis. Patient reports abdominal x-ray showed a lot of stool and advised to use MiraLAX daily instead of intermittently. Reports urinalysis was okay showing no infection. Had 2 episodes of diarrhea yesterday which is now resolved. Prior similar symptoms: No Recent Illness/Hospitalization: No PFSH <Layne Jules RN - Last Filed: 06/13/23 22:22> [facility] Medical History (Updated 06/13/23 @ 21:[address] 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 IBS (irritable bowel syndrome) Leg cramps Multinodular goiter MVP (mitral valve prolapse) Non-smoker Osteoarthritis Osteopenia determined by x-ray Palpitations Peptic ulcer Post-menopausal Psoriasis Right rotator cuff tear Rosacea Shortness of breath on exertion Thyroid disease Thyromegaly Uninodular goiter URI (upper respiratory infection) Wears glasses Home Medications rosuvastatin 10 mg tablet 10 mg PO QHS 10/14/19 [History Last Taken Unknown] multivit,mineral-folic acid 800 mcg-vit K 100 mcg-herbal no.289 tablet (Alive Once Daily Women 50 Plus) 1 tab PO DAILY 05/29/21 [History Last Taken Unknown] omeprazole 40 mg capsule,delayed release 20 mg PO DAILY 04/08/22 [History Last Taken 04/11/22 07:00] cholecalciferol (vitamin D3) 50 mcg (2,000 unit) tablet (Vitamin D3) 2,000 unit PO DAILY 03/21/23 [History Last Taken Unknown] coQ10 (liposomal ubiquinol) 8 mg/mL oral liquid 200 mg PO DAILY 03/21/23 [History Last Taken Unknown] metoprolol succinate 25 mg tablet,extended release 24 hr (Toprol XL) 12.5 mg PO QHS 03/21/23 [History Last Taken Unknown] polyethylene glycol 3350 17 gram/dose oral powder (Miralax) 17 g PO DAILY 03/21/23 [History Last Taken Unknown] turmeric 400 mg capsule 400 mg PO DAILY 03/21/23 [History Last Taken Unknown] vitamin A 2,500 unit-vit C 100 mg-biotin 2,500 huw-zyrn-qktxsx capsule (Mfjg-Qpen-Vesb (vit A,M-avyrpy-Rq-Cu)) 1 cap PO DAILY 03/21/23 [History Last Taken Unknown] levothyroxine 50 mcg tablet See Rx Instructions PO .6x/week #78 tabs 05/21/23 [R x Last Taken Unknown] Allergy/AdvReac Type Severity Reaction Status Date / Time adhesive Allergy Mild Rash Verified 06/13/23 16:15 ketorolac Allergy Other Verified 06/13/23 16:15 Opioids - Morphine Analogues Allergy Other Verified 06/13/23 16:15 pseudoephedrine Allergy Other Verified 06/13/23 16:15 [From Sudafed] celecoxib [From Celebrex] AdvReac Mild history of Verified 06/13/23 16:15 ulcer cyclobenzaprine AdvReac Mild Other Verified 06/13/23 16:15 [From Flexeril] duloxetine [From Cymbalta] AdvReac Mild Other Verified 06/13/23 16:15 escitalopram [From Lexapro] AdvReac Mild Other Verified 06/13/23 16:15 lorazepam [From Ativan] AdvReac Mild Other Verified 06/13/23 16:15 morphine AdvReac Mild Other Verified 06/13/23 16:15 tramadol AdvReac Mild Other Verified 06/13/23 16:15 albuterol AdvReac chest pain Verified 06/13/23 16:15 pseudoephedrine HCl AdvReac Other Verified 06/13/23 16:15 [From [facility]] Family History Father Prostate cancer Mother Heart disease Sister Cancer pancreatic Sister Taye's granulomatosis Surgical History H/O mastectomy H/O umbilical hernia repair History of colonoscopy History of esophagogastroduodenoscopy (EGD) History of hysterectomy History of tonsillectomy Hx of cholecystectomy Social History Smoking Status: Never smoker ROS <Layne Jules RN - Last Filed: 06/13/23 22:22> ROS ED Constitutional Constitutional ED: Reports chills Eyes Eyes: Denies blurry vision or change in vision ENT ENT ED: Reports other Details: Chronic sinus pressure ; Denies ear pain, rhinorrhea or sore throat Cardiovascular Cardiovascular: Denies chest pain, palpitations or racing heartbeat Respiratory/Chest Respiratory/Chest: Denies cough or dyspnea Gastrointestinal Gastrointestinal: Reports nausea and other Details: Right upper quadrant pain x 4 days Genitourinary Genitourinary ED: Reports urinary frequency; Denies dysuria Musculoskeletal Musculoskeletal: Denies myalgias Integumentary Denies rash Neurologic Neurologic: Denies headache(s) or weakness <Dr. Daniella Tobin MD - Last Filed: 06/13/23 22:06> ROS ED Cardiovascular Cardiovascular: Reports palpitations EXAM <Layne Jules RN - Last Filed: 06/13/23 22:22> Physical Exam Const Vital Signs: 06/13/23 16:16 06/13/23 17:31 06/13/23 19:45 Temperature 97.2 F L Temperature Source Temporal Pulse Rate 77 67 71 Respiratory Rate 14 12 15 Blood Pressure 183/70 H 169/57 H 188/62 H Blood Pressure Mean 107 94 104 Pulse Ox 99 99 99 Oxygen Delivery Method Room Air Room Air Positive well nourished and well developed General Appearance ED: well developed HEENT Reports moist mucous membranes Eyes PERRL Eyes Narrative: Nystagmus noted when looking left Neck no lymphadenopathy General: Negative for tenderness Chest Wall inspection of chest normal and palpation of chest normal Resp normal respiratory effort and clear to auscultation bilaterally Cardio regular rate, regular rhythm, S1 normal heart sound, S2 normal heart sound and no murmurs GI normal to inspection, nondistended, normoactive bowel sounds, non-tender and non-distended Auscultation: normoactive bowel sounds Extremity normal to inspection Neuro oriented x3 and no sensory deficits noted Motor Exam: strength 5/5 throughout Psych mental status grossly normal Skin no rashes or lesions noted and skin turgor normal <Dr. Daniella Tobin MD - Last Filed: 06/13/23 22:06> Physical Exam Const Vital Signs: 06/13/23 16:16 06/13/23 17:31 06/13/23 19:45 Temperature 97.2 F L Temperature Source Temporal Pulse Rate 77 67 71 Respiratory Rate 14 12 15 Blood Pressure 183/70 H 169/57 H 188/62 H Blood Pressure Mean 107 94 104 Pulse Ox 99 99 99 Oxygen Delivery Method Room Air Room Air Eyes Eyes Narrative: Mild nystagmus noted when looking left MDM <Layne Jules RN - Last Filed: 06/13/23 22:22> [facility] Narrative Medical decision making narrative: Patient placed on conveyor monitor. IV line initiated. Labwork obtained to evaluate for leukocytosis, anemia, and electrolyte derangement. Urinalysis obtained to evaluate for infection/hematuria. EKG obtained to evaluate for cardiac arrhythmia/ischemia. Chest x-ray obtained to evaluate for acute lung pathology, cardiac size, or mediastinal abnormality. CT brain without contrast ordered to evaluate for acute pathology. History & Record Review Discussion w/independent historian: Patient and Significant other Lab Data Attestation: I reviewed the patient's lab results. Labs: Laboratory Results - last 24 hr 06/13/23 06/13/23 16:43 18:15 WBC 7.5 RBC 4.75 Hgb 14.5 Hct 43.4 MCV 91.4 MCH 30.5 MCHC 33.4 RDW Std Deviation 40.6 RDW Coeff of Omkar 12.2 Plt Count 168 MPV 11.8 Immature Gran % (Auto) 0.300 Neut % (Auto) 64.9 Lymph % (Auto) 25.9 Mobile % (Auto) 7.3 Eos % (Auto) 1.1 Baso % (Auto) 0.5 Absolute Neuts (auto) 4.9 Absolute Lymphs (auto) 1.95 Nucleated RBC % 0 Sodium 141 Potassium 3.9 Chloride 109 H Carbon Dioxide 27.0 Anion Gap 5 BUN 22 H Creatinine 1.02 Estim Creat Clear Calc 45.65 Est GFR (MDRD) Af Amer 68 Est GFR (MDRD) Non-Af 56 L BUN/Creatinine Ratio 21.6 H Glucose 116 H Calcium 9.6 Total Bilirubin 0.70 Direct Bilirubin 0.19 AST 23 ALT 35 Alkaline Phosphatase 73 Troponin I High Sens 4 Total Protein 7.3 Albumin 3.8 Globulin 3.5 Urine Color Yellow Urine Clarity Sl. Cloudy Urine pH 7.0 Ur Specific [place] 1.010 Urine Protein Negative Urine Glucose (UA) Normal Urine Ketones Negative Urine Occult Blood Negative Urine Nitrite Negative Urine Bilirubin Negative Urine Urobilinogen Normal Ur Leukocyte Esterase Negative Urine RBC 0 SEEN Urine WBC 0 SEEN Ur Squamous Epith Cells 0 SEEN Urine Bacteria 0 SEEN Urine Mucus 0 SEEN Radiography Chest X-Ray - ED: 1 View, Read by ED Physician and Read by Radiologist Diagnostic Testing: Clinical Impression(s) from Imaging Studies Brain CT 06/13/23 16:44 IMPRESSION: Chronic involutional changes of the brain. Electronically Signed: Josiah Mcdowell MD at 17:29 EST , Chest X-Ray 06/13/23 16:50 IMPRESSION: No active disease. Electronically Signed: Josiah Mcdowell MD at 17:26 EST , EKG Initial EKG: Attestation: I personally reviewed and interpreted this EKG as follows: Interpretation: Sinus Rhythm and No Acute Injury Pattern Prior EKG tracings: not available for review Differential Diagnosis Chest pain/SOB: ACS and pneumonia Management Discussion w/another healthcare provider: Other (Dr. Tobin, ED provider) Treatment and Re-Evaluation :: CBC is normal with a white count of 7.5 with 64.9% neutrophils hemoglobin is 14.5. Chemistry reveals chloride slightly elevated at 109 BUN of 22 glucose of 116. LFTs unremarkable. Urinalysis unremarkable. EKG sinus rhythm. Chest x- ray unremarkable. Brain CT with chronic changes. Patient was given labetalol 10 mg for hypertension with small improvement in blood pressure. Meclizine 25 mg for dizziness. Patient was given metoprolol 12.5 mg for continued hypertension. <Dr. Daniella Tobin MD - Last Filed: 06/13/23 22:06> [facility] History & Record Review Additional record(s) reviewed:: Prior labs Lab Data Labs: Laboratory Results - last 24 hr 06/13/23 06/13/23 16:43 18:15 WBC 7.5 RBC 4.75 Hgb 14.5 Hct 43.4 MCV 91.4 MCH 30.5 MCHC 33.4 RDW Std Deviation 40.6 RDW Coeff of Omkar 12.2 Plt Count 168 MPV 11.8 Immature Gran % (Auto) 0.300 Neut % (Auto) 64.9 Lymph % (Auto) 25.9 Mobile % (Auto) 7.3 Eos % (Auto) 1.1 Baso % (Auto) 0.5 Absolute Neuts (auto) 4.9 Absolute Lymphs (auto) 1.95 Nucleated RBC % 0 Sodium 141 Potassium 3.9 Chloride 109 H Carbon Dioxide 27.0 Anion Gap 5 BUN 22 H Creatinine 1.02 Estim Creat Clear Calc 45.65 Est GFR (MDRD) Af Amer 68 Est GFR (MDRD) Non-Af 56 L BUN/Creatinine Ratio 21.6 H Glucose 116 H Calcium 9.6 Total Bilirubin 0.70 Direct Bilirubin 0.19 AST 23 ALT 35 Alkaline Phosphatase 73 Troponin I High Sens 4 Total Protein 7.3 Albumin 3.8 Globulin 3.5 Urine Color Yellow Urine Clarity Sl. Cloudy Urine pH 7.0 Ur Specific [place] 1.010 Urine Protein Negative Urine Glucose (UA) Normal Urine Ketones Negative Urine Occult Blood Negative Urine Nitrite Negative Urine Bilirubin Negative Urine Urobilinogen Normal Ur Leukocyte Esterase Negative Urine RBC 0 SEEN Urine WBC 0 SEEN Ur Squamous Epith Cells 0 SEEN Urine Bacteria 0 SEEN Urine Mucus 0 SEEN Radiography Diagnostic Testing: Clinical Impression(s) from Imaging Studies Brain CT 06/13/23 16:44 IMPRESSION: Chronic involutional changes of the brain. Electronically Signed: Josiah Mcdowell MD at 17:29 EST , Chest X-Ray 06/13/23 16:50 IMPRESSION: No active disease. Electronically Signed: Josiah Mcdowell MD at 17:26 EST , EKG Initial EKG: Comments: Sinus at 64 with incomplete right bundle branch block. No acute ischemia. Differential Diagnosis Chest pain/SOB: ACS ACS: Positive for no evidence of ACS based on cardiac biomarkers, EKG without ischemia and history not suggestive of ischemia pain and pneumonia Reason(s) pneumonia less likely: Positive for no infiltrate on CXR and no noted fever Treatment and Re-Evaluation :: CBC is normal with a white count of 7.5 with 64.9% neutrophils hemoglobin is 14.5. Chemistry reveals chloride slightly elevated at 109 BUN of 22 glucose of 116. LFTs unremarkable. Urinalysis unremarkable. EKG sinus rhythm. Chest x- ray unremarkable. Brain CT with chronic changes. Patient was given labetalol 10 mg for hypertension with small improvement in blood pressure. Meclizine 25 mg for dizziness. Patient was given metoprolol 12.5 mg for continued hypertension. Patient seen and evaluated with [employer] student. I personally interviewed and examined the patient. I was involved in all aspects of patient's orders, interpretation of results, and treatment. Patient presents with multiple complaints. She has had some right-sided abdominal pain over the past several days was concerned she may have a kidney stone. She was seen by PCP who obtained an x-ray showing some constipation. She is to be taking MiraLAX daily. She also complains of dizziness which she describes as pressure behind her eyes and facial bones. She will get lightheaded and see a white spot. She has felt like she may pass out. Patient does have a history of palpitations and takes metoprolol. She states that when she gets these lightheaded episodes she will feel 1 hard thump from her chest but otherwise no significant palpitations. Patient sitting upright in bed no acute distress. Alert and talkative. Head and neck examination largely unremarkable. Pupils equal and reactive. Patient does have slight nystagmus when looking to the left. Heart is regular rate and rhythm. Lung sounds are clear. Abdomen is soft and nontender. Neuro exam is unremarkable. IV line initiated. Patient given IV labetalol for hypertension as well as Antivert. EKG is sinus rhythm at 64 bpm with an incomplete right bundle branch block. No acute ischemia. Head CT reveals chronic changes with no acute findings. Portable chest x-ray per my interpretation reveals no focal infiltrate or acute abnormality. Radiology interpretation reviewed and agrees. CBC reveals normal white count 7.5 with normal differential. Hemoglobin normal at 14.5. Chemistry studies unremarkable. Glucose is 116. LFTs are normal. Troponin is normal at 4. Urinalysis reveals no evidence of infection or hematuria. After IV labetalol blood pressure did come down to the 160s systolic, but then did climb again. She was given her normal dose of metoprolol that she had not yet taken. I did speak with Dr. Springer, on-call for Dr Kowalski. Plan will be to have the patient take her metoprolol twice daily as she is supposed to. I encouraged her to record her blood pressure readings 2 or 3 times a day. She is to document what time she took her medication as well as if she has any symptoms at the time of her blood pressure check. She is to follow-up in the office next week and take this journal with her. Return instructions are given. Discharge Plan Triage Chief Complaint: Dizziness ED Provider: Daniella Tobin Dx/Rx/DC Orders Clinical Impression: Hypertension, Vertigo Instructions: ED High Blood Pressure Hypertension, ED Vertigo, Unspecified Prescriptions: No Action rosuvastatin 10 mg tablet 10 mg PO QHS Alive Once Daily Women 50 Plus 800-100 mcg tablet 1 tab PO DAILY omeprazole 40 mg capsule,delayed release(DR/EC) 20 mg PO DAILY coQ10 (liposomal ubiquinol) 8 mg/mL liquid 200 mg PO DAILY cholecalciferol (vitamin D3) [Vitamin D3] 50 mcg (2,000 unit) tablet 2,000 unit PO DAILY turmeric 400 mg capsule 400 mg PO DAILY Xhji-Lopx-Nfxz(vit A,C-biotin) 2,500 unit-100 mg-2,500 mcg capsule 1 cap PO DAILY polyethylene glycol 3350 [Miralax] 17 gram/dose powder 17 g PO DAILY metoprolol succinate [Toprol XL] 25 mg tablet extended release 24 hr 12.5 mg PO QHS levothyroxine 50 mcg tablet See Rx Instructions PO .6x/week Qty: 78 3RF Rx Instructions: Take one tablet Friday- Friday Primary Care Provider: Theresa Rodriguez Referrals: Theresa Rodriguez, [Primary Care Provider] - Activity Restrictions/Additional Instructions: Take metoprolol as prescribed. Please keep a journal of your blood pressure readings twice or potentially 3 times a day. Write down when he took your metoprolol, when you check your blood pressure, and if you have any symptoms at that time. Please follow-up with your doctor next week and take this journal with you. Disposition Disposition: Home, Self Care Discharge Date/Time: 06/13/23 20:18
[2023-06-13] MEDS: Labetalol (Prefilled) 20 MG/4 ML 10 MG IV (17:18)
[2023-06-13 17:28] LABS: AST(SGOT) 23 U/L (15-37); Alanine Aminotransfer ALT/SGPT 35 U/L (13-56); Albumin, Serum 3.8 g/dL (3.2-5.0); Alkaline Phosphatase 73 U/L (45-117); Anion Gap 5 (5-15); BUN 22 mg/dL (7-18); BUN/Creat Ratio 21.6 RATIO (10-20); Bilirubin, Direct 0.19 mg/dL (0.00-0.30); Calcium,Total 9.6 mg/dL (8.5-10.1); Chloride 109 mmol/L (98-107); Creatinine, Serum 1.02 mg/dL (0.55-1.02); EST Glomerular Filtration Rate 56 mL/min (>60); Est Glom Filt Rate - Afr Amer 68 mL/min (>60); Estimated Creatinine Clearance 45.65 ml/min; Globulin 3.5 g/dL (2.2-4.2); Glucose 116 mg/dL (74-106); Potassium 3.9 mmol/L (3.5-5.1); Protein, Total 7.3 g/dL (6.4-8.2); Sodium Level 141 mmol/L (136-145); Troponin-I HS 4 pg/mL (3.0-54.0)
[2023-06-13 17:31] VITALS: BP 169/57; PULSE 67; RESP 12; O2SAT 99
[2023-06-13 18:20] LABS: Bacteria 0 SEEN /hpf (None Seen); Mucous, Urine 0 SEEN /hpf (<or=2+); Red Blood Cells-Urine 0 SEEN /hpf (0-5); Squamous Epithelial Cells - UA 0 SEEN /hpf (5-10); White Blood Cells 0 SEEN /hpf (0-5)
[2023-06-13 18:36] LABS: Color, Urine Yellow (Yellow); Glucose, Dipstick Normal (Normal); Ketone-Dipstick Negative (Negative); Leukocyte Esterase-Dipstick Negative /ul (Negative); Nitrite-Dipstick Negative (Negative); Occult Blood-Urine Negative /ul (Negative); Protein-Dipstick Negative (Negative); Urine Bilirubin Dipstick Negative (Negative); Urine Clarity Sl. Cloudy (Clear); Urine Urobilinogen Normal (Normal)
[2023-06-13 19:45] VITALS: BP 188/62; PULSE 71; RESP 15; O2SAT 99
[2023-06-13] MEDS: Metoprolol(XL)Succ 25 MG Tablet 12.5 MG PO (19:52)
== END 2023-06-13 20:18 | disposition home or self-care (01) ==
PROVIDERS: Emergency Provider Emergency Medicine; PCP Internal Medicine; Visit Provider Emergency Medicine
DX: R42 Dizziness and giddiness (principal); I10 Essential (primary) hypertension; E78.00 Pure hypercholesterolemia, unspecified; Z85.3 Personal history of malignant neoplasm of breast; Z79.899 Other long term (current) drug therapy; K21.9 Gastro-esophageal reflux disease without esophagitis; E03.9 Hypothyroidism, unspecified; Z90.10 Acquired absence of unspecified breast and nipple; Z90.710 Acquired absence of both cervix and uterus; Z90.49 Acquired absence of other specified parts of digestive tract
CPT/HCPCS: 70450; 71045; 80048; 80076; 81001; 84484; 85025; 93005; 99285; A4216

== ENCOUNTER → 2023-06-20 | Outpatient (CLI) | payer OTHER, SELFPAY | END | disposition home or self-care (01) | LOC: PSN 08:00 | PROVIDERS: PCP Internal Medicine; Referring Provider Internal Medicine; Visit Provider Internal Medicine | DX: R00.2 Palpitations (principal) | CPT/HCPCS: 93225; 93226 ==

== ENCOUNTER → 2023-07-03 | Outpatient (CLI) | payer OTHER, SELFPAY | END | disposition home or self-care (01) | LOC: LAB 11:55 | PROVIDERS: PCP Internal Medicine; Visit Provider Internal Medicine | DX: I10 Essential (primary) hypertension (principal); I95.9 Hypotension, unspecified | CPT/HCPCS: 36415; 82533 ==

== ENCOUNTER → 2023-07-05 | Outpatient (CLI) | payer OTHER, SELFPAY ==
[2023-07-11 20:08] LABS: Metanephrine, Ur 27 ug/L (Undefined); Metanephrines, 24Ur 101 ug/24 hr (36-209); Normetanephrines, 24Ur 289 ug/24 hr (131-612); Normetanephrines, Ur 77 ug/L (Undefined)
== END | disposition home or self-care (01) ==
PROVIDERS: PCP Internal Medicine; Referring Provider Internal Medicine; Visit Provider Internal Medicine
DX: I10 Essential (primary) hypertension (principal)
CPT/HCPCS: 81050; 83835

== ENCOUNTER → 2023-07-06 | Outpatient (CLI) | payer OTHER, SELFPAY | END | disposition home or self-care (01) | PROVIDERS: PCP Internal Medicine; Visit Provider Internal Medicine | DX: I10 Essential (primary) hypertension (principal) | CPT/HCPCS: 81050 ==

== ENCOUNTER 2023-07-11 08:58 | Outpatient (CLI) | payer OTHER, SELFPAY ==
[2023-07-11 09:10] VITALS: BP 150/63; PULSE 66; RESP 14; TEMP 36.3; O2SAT 99; BMI 28.3
[2023-07-11] MEDS: Cosyntropin 0.25 MG Vial IM (09:15)
[2023-07-11 10:31] VITALS: BP 159/67; PULSE 58; RESP 16; TEMP 36.2
== END 2023-07-11 08:59 | disposition home or self-care (01) ==
LOC: MEDOUTP 08:58
PROVIDERS: PCP Internal Medicine; Referring Provider Internal Medicine; Visit Provider Internal Medicine
DX: I95.9 Hypotension, unspecified (principal)
CPT/HCPCS: 36415; 82533; 96372; J0834

== ENCOUNTER → 2023-08-20 | Outpatient (CLI) | payer OTHER, SELFPAY ==
--- NOTE | 2023-08-22 15:50 | STRESSREP ---
Stress Test Report Date: 08/20/2023 Procedure: Exercise tolerance test/imaging study Indications: Dizziness Consent: Per the patient Procedure: The patient exercised on a Piotr protocol for 5 minutes and 15 seconds achieving a peak heart rate of 160 bpm (110% predicted maximal heart rate) with a peak blood pressure 230/72 mmHg and a peak MET capacity of 7 METs. The baseline ECG demonstrated normal sinus rhythm. The peak exercise ECG demonstrated sinus tachycardia with about [address] depressions in the inferior and lateral leads. EKG during recovery revealed return of ST segments to baseline [There were no cardiac dysrhythmias pretest, during exercise, or recovery]. The functional capacity was considered normal for age. Patient had chest heaviness at peak exercise. The examination was discontinued secondary to dyspnea. Impression: 1. Technically adequate (percent predicted maximal heart rate greater than 85%) exercise tolerance test 2. Stress test is positive for exercise-induced EKG changes of ischemia 3. The test test is positive for exercise-induced chest pain 4. Functional capacity is normal for age 5. Nuclear images pending Myocardial perfusion imaging study: Technique: The patient was injected with 11.6 mCi of technetium 99m Cardiolite and subsequently rest SPECT Cardiolite nuclear imaging was obtained in the horizontal long, vertical long, and short axis views. The patient exercised on a Piotr protocol. Please see above for details. The patient was injected with 33.5 mCi of technetium 99m Cardiolite and subsequently stress SPECT Cardiolite nuclear imaging was obtained in the horizontal long, vertical long, and short axis views. A gated Cardiolite study at peak stress was obtained. Interpretation: Rest and stress SPECT Cardiolite nuclear imaging status post realignment, normalization, and attenuation correction, demonstrates no evidence of significant ischemia or infarction. The gated Cardiolite study demonstrates no significant regional wall motion abnormalities. The reported LVEF is greater than 70%. Impression: 1. There is no evidence of significant ischemia or infarction on the nuclear portion of the test. Please see above for the EKG portion. 2. The gated Cardiolite study reports an LVEF of greater than 70%. This note was generated with [employer] software. It may contain incorrect words, spelling, and punctuation that were not noted in checking the note before signing.
== END | disposition home or self-care (01) ==
LOC: CVS 06:23
PROVIDERS: PCP Internal Medicine; Referring Provider Internal Medicine; Visit Provider Internal Medicine
DX: R94.30 Abnormal result of cardiovascular function study, unspecified (principal)
CPT/HCPCS: 78452; 93017; A9500; A4216

== ENCOUNTER → 2023-12-01 | Outpatient (CLI) | payer OTHER, SELFPAY ==
--- NOTE | 2023-12-01 10:13 | BI_ITS ---
MAMMOGRAPHY - UNILATERAL SCREENING: LEFT BREAST REASON FOR EXAM: Female, 73 years old. Routine annual screening examination (unilateral). PERTINENT HISTORY: Personal history of breast cancer. Prior right mastectomy. Grandmother with breast cancer. TECHNIQUE: Digital unilateral breast sammy (3D mammographic acquisition) in the CC and MLO projections. 2-D mediolateral oblique (MLO) and craniocaudad (CC) views of both breasts were obtained. CAD: Full Field Digital Mammography with Computer Added Detection was performed. COMPARISON: Comparison is made with prior study dated November 28, 2022 and November 23, 2021. FINDINGS: Breast Composition: There are scattered areas of fibroglandular density. There are no dominant masses or suspicious calcifications. No other significant abnormalities are identified. There has been no significant change since the prior study. BI/SCREEN MAMM (CAD) W/SAMMY UNI L IMPRESSION: Stable unilateral screening mammogram. Yearly follow-up mammogram recommended. (A) ASSESSMENT CATEGORY: BIRADS Category 1: Negative. A letter regarding these results will be sent to the patient by the facility within 30 days. Approximately 10% of breast cancers are not detected by mammography. A normal mammogram should not delay biopsy of a clinically suspicious abnormality. [id number] Electronically Signed: Bartolo Buck MD at 11:11 EDT ,
== END | disposition home or self-care (01) ==
LOC: OPBI 10:13
PROVIDERS: PCP Internal Medicine; Referring Provider Internal Medicine Medical Oncology; Visit Provider Internal Medicine Medical Oncology
DX: Z12.31 Encounter for screening mammogram for malignant neoplasm of breast (principal); Z85.3 Personal history of malignant neoplasm of breast; Z80.3 Family history of malignant neoplasm of breast; Z90.11 Acquired absence of right breast and nipple
CPT/HCPCS: 77063; 77067

== ENCOUNTER → 2024-03-31 | Outpatient (CLI) | payer OTHER, SELFPAY ==
[2024-03-31 10:39] LABS: Vitamin D,25 Hydroxy 41.6 ng/mL
[2024-03-31 10:40] LABS: T4 Free Direct 1.11 ng/dL (0.76-1.46)
[2024-03-31 10:48] LABS: Hemoglobin A1c 5.4 % (3.8-5.6)
== END | disposition home or self-care (01) ==
LOC: LAB 09:15
PROVIDERS: PCP Internal Medicine; Referring Provider Internal Medicine Endocrinology, Diabetes & Metabolism; Visit Provider Internal Medicine Endocrinology, Diabetes & Metabolism
DX: E55.9 Vitamin D deficiency, unspecified (principal); E03.8 Other specified hypothyroidism; E06.3 Autoimmune thyroiditis; E04.2 Nontoxic multinodular goiter; M85.80 Other specified disorders of bone density and structure, unspecified site; R73.09 Other abnormal glucose
CPT/HCPCS: 36415; 82306; 83036; 84439; 84443

== ENCOUNTER 2024-04-06 13:00 | Outpatient (RCR) | payer OTHER, SELFPAY ==
--- NOTE | 2024-02-03 14:53 | HP.OTEVAL ---
Patient's Visit Information Visit Information Visit Information: TERESE BUTLER is a 73 year old F, referred to Occupational Therapy by Dr. Devin Aiken MD, with a diagnosis of left trigger thumb, cmc OA left. Date of Evaluation: 02/03/24 Occupational Therapist: Bobbi Hammer, PAKOR/Abad, CHT Subjective Subjective: This 73 year old female was seen for OT eval with dx of left trigger thumb, and left primary osteoarthritis of first carpometacarpal joint. Pt states she about a few months ago- she started to have a catch in her left thumb. 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 she started putting a band-aide over her IP to prevent her from bending the tip of her finger and feels this does help- pt would like to work on conservative methods. Pain left thumb: Current Pain Intensity: 2 Pain Intensity Range: 5 and 6 ROM CMC: right 10 left 10 MP: right 45 left 45 IP: right 40 left 25 Strength Auto Service Dispatcher: right 40# left 30# Lateral Pinch: right 16# left 10# Tripod Pinch: right 10# left 10# Sensation Sensation Comments: denies Quick DASH-Disab of Arm,Shoulder& Hand Quick DASH Score: 22.7250 Goals Goal:: pt will demo a increase in left steel analyst strength by 10# to increase pts IND with ADLs and IADLs by d.c Goal:: pt will demo a increase in left IP flexion by 10* to increase pts ind. with pinch tasks by d.c. Goal:: Pt will demo understanding of joint protection and ergonomics when performing BADLs and IADLs by d/c Pt will demo understanding of adaptive Equipment use to decrease stress on joints to allow pt to perform BADSL and IADLS at LASHAY level. Goal:: pt will demo a reduction in left thumb triggering by 75% by d.c Rehabilitation General Assessment: Pt demo with positive left thumb instability with positive symptoms of cmc arthritis and left trigger thumb. pt demo need for skilled OT services 2x week for 4-6 weeks to decrease pts symptoms and return pt to her PLOF. Today therapist ed. pt on use of oval 8 orthosis to decrease trigger- ed. pt on ice massage over Flexor tendon/[id number] region as well as ed. on joint protect kesha. pt demo understanding and agree to POC. Rehabilitation Potential: Good Anticipated Interventions Anticipated Interventions: A/AAROM/PROM, Triggerpoint Release, Modalities, Orthoses, Joint Protection/Energy Conservation, Ergonomic Education, Education re assistive Equipment, Education re Diagnosis and Home Program Visit Plan Frequency: 2x /Week Duration: 4-6 Weeks TEXT: Thank you for the opportunity to evaluate your patient. For Medicare and Medicare HMO plans, please review the plan of care and approve it. It will need to be FAXED BACK to us at [phone] for Medicare purposes. Please let me know if there are questions or concerns regarding this plan of care. Physician Signature: Date:
--- NOTE | 2024-02-03 15:46 | HP.PTEVAL ---
Patient's Visit Information Visit Information Visit Information: TERESE BUTLER is a 73 year old F referred to Physical Therapy by Dr. Devin Aiken MD with a diagnosis of B knee OA. Date of Evaluation: 02/03/24 Physical Therapist: Pardeep Richey DPT Visit Plan Frequency: 1x/Week Duration: 4 Weeks Plan: Start with BLE strengthening, focus on quad, glute med/max. HS stretching. Pt. desires to complete on own at this point in time. I gave her some exercises to complete I. Pt. to follow back up in a few weeks. Subjective Subjective: Pt. is here today for her initial evaluation with diagnosis of B knee OA. Pt. reports seeing physician whom reports that she has OA and needs to go to therapy. Pt. reports no N/T. Pt. reports having increased symptoms for ~ a few months. Pain R knee: Pain Intensity (Out of 10): 0 Pain Intensity Range: 0 and 5 L knee: Pain Intensity (Out of 10): 0 Pain Intensity Range: 0 and 5 Objective Objective: POSTURE: Pt. has a general flexed posture. Pt. has slight B knee valgus. PALAPTION: Pt slight increase in symptoms of medial joint lines bilaterally. NEURO: Pt. has normal sensation in BLEs. Pt. is able to rise on heels and toes without issues. ROM: R knee: 0-0-126deg., L knee: 0-0-124deg. Pt. does have marked tightness in B HS. MMT: RLE: ankle 5/5 throughout; knee: ext 34.1#, flexion 21.6#; hip: flexion 14#, abd 11.3#. LLE: ankle 5/5 throughout; knee; ext 28.9#, flexon 20.1#; hip: flexion 13.8#, abd 13.1#. GAIT: Pt. has increased B knee valgus during stance phase of gait. Pt. has slight increase in lateral hip sway, but no true Trendelenburg noted. STAIRS: Pt. is able to ascend with 1 HR with reciprocal pattern. Descends with use of 2 with slight L knee pain during stance phase of decending. Balance/Special Test Scores Lower Extremity Functional Score: 47 Goals Goal 1:: LTG: Pt. to be I with HEP. Goal Time Frame: 2-4 Weeks Goal 2:: STG: Pt. to be able to walk for 10min without increase in B knee pain. Goal Time Frame: 2-4 Weeks Goal 3:: LTG: Pt. to negotiate 1 flight of stairs without increase in B knee pain. Goal Time Frame: 4-6 Weeks Goal 4:: LTG: Pt. to be able to get up out of chair without increase in B knee pain. Goal Time Frame: 4-6 Weeks Rehabilitation Potential Physical Therapy Diagnosis: Pt. has signs and symptoms consistent with B knee OA. Pt. has decent strength and ROM in B knees. Overall she has not been very active recently. Pt. would benefit from progressive walking and strengthening program. Rehabilitation Potential: Excellent Anticipated Interventions Patient/Client Instruction: Educate patient on: Condition, Plan of Care, Risk Factors and Benefits of Fitness Program For the Purpose of:: To improve decision making, To facilitate caregiver knowledge, To improve self management, To prevent re-injury and To improve ability to perform tasks related to life management Therapeutic Exercise to Include: Strength training, Power training, Flexibilty training and Dynamic Lumbar Stabilization For the Purpose of:: To decrease pain, To increase ROM, To improve nutrient delivery to tissue, To increase oxygenation perfusion, To improve muscle performance and motor function, To decrease soft tissue restriction and To increase flexibility/ROM Text: Thank you for the opportunity to evaluate your patient. For Medicare and Medicare HMO plans, please review the plan of care and approve it. It will need to be FAXED BACK to us at [phone] for Medicare purposes. For Medicare only, by signing this I certify the plan of care. Please let me know if there are questions or concerns regarding this plan of care. Physician Signature: Date:
--- NOTE | 2024-03-11 12:17 | OTREVAL_ITS ---
Re-Evaluation Intro: Dr. Devin Aiken MD, It has been my pleasure to treat TERESE DICKENS BUTLER over the last 12 visits for left trigger thumb, cmc OA left. Please see the progress note below for an update on the occupational therapy plan of care! Subjective Subjective: pt arrives doing well states overall trigger is much less however did react and grab for falling item and it did trigger. today is pt last schedule visist. would like to continue her therapy. slip provided for additional visits decreased to 1x a week from 2. Objective Objective/Function: L senior caregiver 35# from 30# L IP flexion at 35 degrees from 25 degrees Plan Plan Frequency: 1x/Week Duration: 4 Weeks Goals Goals Patient Goals: Use Hand/Wrist/Arm Normally Again and Be More Independent in ADLS Goal:: pt will demo a increase in left senior caregiver strength by 10# to increase pts IND with ADLs and IADLs by d.c 03/11: 35# senior caregiver strength Goal:: pt will demo a increase in left IP flexion by 10* to increase pts ind. with pinch tasks by d.c. 03/11: 35 degrees Goal:: Pt will demo understanding of joint protection and ergonomics when performing BADLs and IADLs by d/c ongoing Pt will demo understanding of adaptive Equipment use to decrease stress on joints to allow pt to perform BADSL and IADLS at LASHAY level. ongoing Goal:: pt will demo a reduction in left thumb triggering by 75% by d.c goal met new goal pt will demo a reduction in L thumb triggering by 95% by discharge Anticipated Interventions Anticipated Interventions Anticipated Interventions: A/AAROM/PROM, Triggerpoint Release, Modalities, Orthoses, Joint Protection/Energy Conservation, Ergonomic Education, Education re assistive Equipment, Education re Diagnosis and Home Program Re-Evaluation Ending Re-evaluation ending: Please do not hesitate to contact me at [phone] by phone or if you have questions or concerns regarding this new plan of care! Sincerely, Antonia Wilson
--- NOTE | 2024-04-06 13:41 | HP.OTDCSUM_ITS ---
Discharge Summary D/C Summary: It has been my pleasure to treat TERESE BUTLER under orders from Dr. Devin Aiken MD, for the diagnosis of left trigger thumb, cmc OA left for a total of 16 visit(s). Please see the following information for a summary of their discharge status. Overall Improvement % Improvement: 50 Objective Objective/Function: L hand MP 50 L hand thumb IP 45 communications planner 25# lateral pinch 8# tripod pinch 5# Goals Patient Goals: Use Hand/Wrist/Arm Normally Again and Be More Independent in ADLS Goal:: pt will demo a increase in left communications planner strength by 10# to increase pts IND with ADLs and IADLs by d.c 03/11: 35# communications planner strength 04/06:25# Goal:: pt will demo a increase in left IP flexion by 10* to increase pts ind. with pinch tasks by d.c. 03/11: 35 degrees 04/06: 45 degrees GOAL MET Goal:: Pt will demo understanding of joint protection and ergonomics when performing BADLs and IADLs by d/c GOAL MET Pt will demo understanding of adaptive Equipment use to decrease stress on joints to allow pt to perform BADSL and IADLS at LASHAY level. GOAL MET Goal:: pt will demo a reduction in left thumb triggering by 75% by d.c goal met new goal pt will demo a reduction in L thumb triggering by 95% by discharge GOAL MET D/C Information Discharge Comments: This 74 year old female seen by OT with dx of L thumb trigger finger. pt seen in OT for decreased inflammation, ROM, pain management a s well as ed and training in joint protection and positioning. trial of different bracing to decrease triggering. pt progressed through POC with significant reduction in triggering at this time. discharge with pt in agreeance. d/c sentence: If there are questions or concerns regarding this patient's occupational therapy, please fell free to call me at [phone]. Thank you for the referral of this patient. Sincerely, Antonia Wilson
--- NOTE | 2024-04-06 13:41 | HP.OT.NRP ---
Patient Information Patient Information: TERESE BUTLER was seen in my office for initial evaluation on 02/03/24. The following Plan of Care was established for this patient: POC Established Initial Frequency: 1x/Week Initial Duration: 4 Weeks Anticipated Interventions Anticipated Interventions: A/AAROM/PROM, Triggerpoint Release, Modalities, Orthoses, Joint Protection/Energy Conservation, Ergonomic Education, Education re assistive Equipment, Education re Diagnosis and Home Program Last Seen Last Seen: This patient was last seen in our office 04/06/24. Pertinent comments regarding their Occupational therapy will appear below: This 74 year old female seen for OT with dx of L thumb trigger finger. pt seen for decreased inflammation, pain management, ROM, ed and training in joint protection and positioning. Pt with progress decreased triggering of thumb in POC. discharge at this time with pt in agreeance. At this point I will be discontinuing this patient from occupational therapy. I would be happy to see this patient again in the future if found appropriate by the physician. Thank you! Antonia Wilson
== END 2024-04-06 19:00 | disposition home or self-care (01) ==
LOC: OT 13:00
PROVIDERS: PCP Internal Medicine; Visit Provider Orthopaedic Surgery
DX: M17.0 Bilateral primary osteoarthritis of knee (principal); M25.561 Pain in right knee; M25.562 Pain in left knee
CPT/HCPCS: 97035; 97140; 97161; 97166; 97530

== ENCOUNTER → 2024-12-01 | Outpatient (CLI) | payer MEDICARE, OTHER, SELFPAY ==
--- NOTE | 2024-12-01 10:15 | BI_ITS ---
EXAM: SCREEN MAMM (CAD) W/SAMMY UNI L DATE: 12/01/2024 CLINICAL HISTORY: F, Age 74 y/o , SCREENING TECHNIQUE: SCREEN MAMM (CAD) W/SAMMY UNI L COMPARISON: Prior exam(s) dated 12/01/2023, 11/28/2022, 11/27/2021. FINDINGS: TISSUE DENSITY: There are scattered areas of fibroglandular density. Unilateral Left Breast Mammographic Findings: No significant masses, calcifications or other abnormalities are identified. BI/SCREEN MAMM (CAD) W/SAMMY UNI L IMPRESSION: There is no mammographic evidence of malignancy. OVERALL FINAL ASSESSMENT BI-RADS 1: NEGATIVE. RECOMMENDATION: Routine annual follow-up in 1 Year A letter with findings and recommendations will be mailed to the patient. Reading Location: [id number]
== END | disposition home or self-care (01) ==
LOC: OPBI 10:08
PROVIDERS: PCP Internal Medicine; Referring Provider Internal Medicine Medical Oncology; Visit Provider Internal Medicine Medical Oncology
DX: Z12.31 Encounter for screening mammogram for malignant neoplasm of breast (principal)
CPT/HCPCS: 77063; 77067

== ENCOUNTER → 2024-12-08 | Outpatient (CLI) | payer MEDICARE, OTHER, SELFPAY ==
[2024-12-08 12:45] LABS: Hematocrit 41.3 % (37-47); Hemoglobin 14.0 g/dL (12.0-15.0); Immature Granulocytes Count 0.040 X10^3/uL (0.0-0.0); Mean Corp Hgb Conc 33.9 g/dL (32-36); Mean Corpuscular Volume 91.6 fL (81-99); Mean Platelet Vol. 11.9 fl (6.2-12.0); NRBC Flagged by Analyzer 0 % (0-5); Platelet Count 189 K/mm3 (150-450); RBC Distribution Width CV 12.4 % (11.6-14.6); RBC Distribution Width SD 41.2 fl (35.1-43.9); Red Blood Count 4.51 M/mm3 (4.2-5.4); White Blood Count 7.9 K/mm3 (4.4-11.0)
[2024-12-08 13:01] LABS: AST(SGOT) 22 U/L (<=31); Alanine Aminotransfer ALT/SGPT 23 U/L (<=34); Albumin, Serum 4.3 g/dL (3.4-4.8); Alkaline Phosphatase 84 U/L (35-104); Anion Gap 11 (5-15); BUN 13 mg/dL (4-19); BUN/Creat Ratio 17.3 RATIO (10-20); Calcium,Total 9.3 mg/dL (7.6-11.0); Carbon Dioxide 24.6 mmol/L (21.0-32.0); Chloride 104 mmol/L (98-108); Globulin 2.2 g/dL (2.2-4.2); Glucose 93 mg/dL (70-99); Potassium 4.2 mmol/L (3.3-5.1)
== END | disposition home or self-care (01) ==
LOC: LABSPEC 12:12
PROVIDERS: PCP Internal Medicine; Referring Provider Internal Medicine; Visit Provider Internal Medicine
DX: R10.9 Unspecified abdominal pain (principal)
CPT/HCPCS: 80053; 85025; 85652

== ENCOUNTER → 2025-03-29 | Outpatient (CLI) | payer MEDICARE, OTHER, SELFPAY ==
[2025-03-29 16:01] LABS: Vitamin D,25 Hydroxy 37.0 ng/mL (30-100)
== END | disposition home or self-care (01) ==
LOC: LAB 14:26
PROVIDERS: PCP Internal Medicine; Referring Provider Internal Medicine Endocrinology, Diabetes & Metabolism; Visit Provider Internal Medicine Endocrinology, Diabetes & Metabolism
DX: E89.0 Postprocedural hypothyroidism (principal); E55.9 Vitamin D deficiency, unspecified; R73.09 Other abnormal glucose
CPT/HCPCS: 36415; 82306; 83036; 84443

== ENCOUNTER → 2025-04-02 | Outpatient (CLI) | payer MEDICARE, OTHER, SELFPAY ==
--- NOTE | 2025-04-02 07:57 | US_ITS ---
PROCEDURE: THYROID 04/02/2025 REASON FOR EXAM: ASSESS NODULE SIZES TECHNIQUE: Procedure Code: USTHY Modality: US Procedure: THYROID COMPARISON: 09 April 2023. FINDINGS: Transcutaneous 2-D grayscale and color Doppler ultrasound of the thyroid gland was performed. MEASUREMENTS: Right lobe: 5.7 x 2.8 x 2.1 cm. Left lobe: 5.4 x 2.4 x 2.4 cm. Isthmus: 7 mm. RIGHT SIDE: Heterogeneous echotexture. The superior pole contains a hypoechoic, 1.3 x 1 x 1.2 cm solid nodule oriented parallel to the skin surface without evidence of calcification and associated increased vascularity with ill-defined margins (TR 4). The interpolar portion of the right thyroid lobe contains a 1 x 0.8 x 1 cm solid nodule, slightly hypoechoic to isoechoic oriented parallel to the skin surface without evidence of microcalcification with ill-defined margins (TR 4). A 3rd, dominant inferior pole nodule is noted measuring 2 x 1.2 x 1.8 cm, isoechoic with smooth margins, solid oriented parallel to the skin surface (TR 3). LEFT SIDE: Heterogeneous echotexture. The left thyroid lobe contains hypoechoic, smooth margined nodules measuring 0.5 x 0.3 x 0.4 cm and 0.5 x 0.4 x 0.6 cm, oriented parallel to the skin surface, possibly cystic (TR 2). ISTHMUS: 0.5 x 0.5 x 0.5 cm hypoechoic, possibly cystic, smooth margined nodule (TR 3). Normal vascularity without microcalcification. No enlarged lymph nodes within the visualized neck. US/Thyroid IMPRESSION: Multiple thyroid nodules. TI-RADS 4, moderately suspicious. RECOMMENDATIONS: Recommend repeat examination in 1 year as these nodules do not meet short axis size criteria for recommendation of a fine-needle aspiration. ACR TI-RADS Guidelines TI RADS 1 - Benign; No FNA TI RADS 2- Not Suspicious; No FNA TI RADS 3- Mildly Suspicious; FNA if >2.5cm or Follow if >1.5cm at 1, 3 and 5 y ears. TI RADS 4- Moderately Suspicious; FNA if >1.5cm or Follow if >1cm at 1, 2, 3 an d 5 years. TI RADS 5- Highly Suspicious; FNA if >1cm or Follow if >0.5cm yearly for up to 5 years. Reference: Carli FN, Neva WD, Jairo EG et al. ACR Thyroid Imaging, Repor ting and Data System (TI-RADS): White Paper of the ACR TI-RADS Committee. J Am Reading Location: [id number]
== END | disposition home or self-care (01) ==
LOC: US 07:45
PROVIDERS: PCP Internal Medicine; Referring Provider Internal Medicine Endocrinology, Diabetes & Metabolism; Visit Provider Internal Medicine Endocrinology, Diabetes & Metabolism
DX: E04.2 Nontoxic multinodular goiter (principal)
CPT/HCPCS: 76536

== ENCOUNTER → 2025-04-20 | Outpatient (CLI) | payer MEDICARE, OTHER, SELFPAY ==
--- NOTE | 2025-04-20 15:30 | BD_ITS ---
PROCEDURE: DEXA BONE DENSITY STUDY 04/20/2025 REASON FOR EXAM: X F, age 75 y/o . Postmenopausal. TECHNIQUE: Procedure Code: BDDBD Modality: DX Procedure: DEXA BONE DENSITY STUDY COMPARISON: February 08, 2021. FINDINGS: BMD and T-SCORES Lumbar spine: 0.853 g/cm2, T-score -1.8 Levels: L1 through L4 Change from prior: Loss of 4.7%. Left femoral neck: 0.678 g/cm2, T-score -1.5 Femoral neck comparison data not recommended for monitoring change. Left total hip: 0.804 g/cm2, T-score -1.1 Change from prior: Loss of 3.4%. Right femoral neck: 0.708 g/cm2, T-score -1.3 Femoral neck comparison data not recommended for monitoring change. Right total hip: 0.836 g/cm2, T-score -0.9 Change from prior: Loss of 6.3%. The World Health Organization has defined the following categories based on bone density: Normal bone density: T-score equal to or greater than -1.0 Osteopenia: T-score between -1.0 and -2.5 Osteoporosis: T-score equal to or less than -2.5 FRAX (or Comparable) Fracture Risk Assessment: 10 Year Probability of Fracture: Major Osteoporotic Fracture: 11% Hip Fracture: 2.3% (Note: FRAX is not to be reported in setting of normal range bone density, osteoporosis on DEXA, known history of osteoporosis, prior osteoporotic hip or vertebral fracture, or for any patient undergoing pharmacological treatment for bone loss.) The National Osteoporosis Foundation (NOF) recommends pharmacological treatment for patients with a FRAX 10-year risk of 3% or higher for a hip fracture, or 20% or higher for a major osteoporotic fracture, to prevent osteoporosis and reduce fracture risk. The patient does meet the pharmacological treatment recommendations for prevention of osteoporosis. BD/Dexa Bone Density Study IMPRESSION: OSTEOPENIA. Recommend follow-up as clinically warranted. Reading Location: [place] [id number]
== END | disposition home or self-care (01) ==
PROVIDERS: PCP Internal Medicine; Referring Provider Internal Medicine Endocrinology, Diabetes & Metabolism; Visit Provider Internal Medicine Endocrinology, Diabetes & Metabolism
DX: M81.0 Age-related osteoporosis without current pathological fracture (principal); M85.89 Other specified disorders of bone density and structure, multiple sites
CPT/HCPCS: 77080